=== PATIENT | female | born 1945 | race Hispanic/Latino ===

== ENCOUNTER 2018-04-21 12:52 | Emergency (ER) | payer MEDICARE ==
[~2018-04-21 12:52] MED LIST: ALEN70TA47 PO; ASPI-555 PO; ATOR40TA71 PO; AZIT500T4 PO; CALC1TAB2 PO; DULO60CA63 PO; FAMO20TA8 PO; GLIM2TAB3 PO; HYDR12.54 PO; LOSA50TA25 PO; METF-446 PO; METO25TA6 PO; METO50TA18 PO; MULT-1258 PO; NAPR-1023 PO; OXYB5TAB PO; OXYB5TAB10 PO
[2018-04-21 13:34] LABS: HEMATOCRIT 37.2 % (36-48); LYMPHOCYTES % (AUTO) 22.1 % (21.0-51.0); MEAN CORPUSCULAR HEMOGLOBIN 29.1 pg (27.0-33.0); MEAN CORPUSCULAR HGB CONC 32.8 g/dL (32.0-36.0); MEAN CORPUSCULAR VOLUME 88.6 fL (79-99); MONOCYTES % (AUTO) 7.2 % (3.0-13.0); NEUTROPHILS % (AUTO) 67.7 % (40.0-77.0); PLATELET COUNT (AUTO) 294 K/uL (130-400); RED CELL DISTRIBUTION WIDTH 13.3 % (11.0-15.5); WHITE BLOOD COUNT (AUTO) 8.8 K/uL (4.8-10.8)
[2018-04-21] MEDS ORDERED: SODIUM CHLORIDE 0.9% 500ML 500 ML IV ONE (13:36)
[2018-04-21] MEDS ORDERED: KETOROLAC TROMETHAMINE 30MG/ML ONE (13:36)
[2018-04-21] MEDS ORDERED: ONDANSETRON HCL 4 MG/2 ML VIAL ONE (13:36)
[2018-04-21 13:45] LABS: POTASSIUM 4.1 mmol/L (3.5-5.1)
[2018-04-21 13:54] LABS: ALBUMIN 3.3 g/dL (3.5-5.0); BILIRUBIN,DIRECT 0.1 mg/dL (0.0-0.3); BILIRUBIN,TOTAL 0.2 mg/dL (0.2-1.0); TOTAL PROTEIN, SERUM 7.1 g/dL (6.0-8.3)
[2018-04-21 15:57] LABS: APPEARANCE,URINE Clear (CLEAR); BILIRUBIN,URINE Negative (NEGATIVE); COLOR,URINE Dark Yellow (YELLOW); GLUCOSE, URINE (UA) Negative (NEGATIVE); KETONES,URINE Trace mg/dL (NEGATIVE); LEUKOCYTE ESTERASE ,URINE Moderate (NEGATIVE); NITRATE,URINE Negative (NEGATIVE); OCCULT BLOOD,URINE Negative (NEGATIVE); PROTEIN,URINE Negative (NEGATIVE)
[2018-04-21 16:32] LABS: BACTERIA,URINE Few /HPF (None Seen); RBC,URINE None Seen /HPF (0-1)
== END 2018-04-21 17:29 | disposition home or self-care (01) ==
LOC: EDH 12:52
DX: K52.9 Noninfective gastroenteritis and colitis, unspecified (principal); E11.9 Type 2 diabetes mellitus without complications; E78.5 Hyperlipidemia, unspecified; I10 Essential (primary) hypertension; Z86.73 Personal history of transient ischemic attack (TIA), and cerebral infarction without residual deficits; Z79.4 Long term (current) use of insulin
CPT/HCPCS: 36415; 74176; 80048; 80076; 81001; 82550; 83690; 84484; 84702; 85025; 87804 ×2; 93005; 96374; 96375; 99285; J1885; J2405; J7040

== ENCOUNTER 2021-01-14 16:16 | Emergency (ER) | payer MEDICARE ==
[~2021-01-14] VITALS: Ht 165.1 cm; Wt 98.0 kg
[~2021-01-14 16:16] MED LIST changes: -ALEN70TA47 PO; +ALEN70TA80 PO; -ASPI-555 PO; +ASPI-556 PO; -DULO60CA63 PO; +DULO60CA64 PO; -GLIM2TAB3 PO; +GLIM2TAB30 PO; -LOSA50TA25 PO; +LOSA50TA64 PO; +OXYB-66 PO; -OXYB5TAB PO; -OXYB5TAB10 PO; +OXYB5TAB15 PO
[2021-01-14 16:19] VITALS: BP 137/62
[2021-01-14 16:57] LABS: APPEARANCE,URINE Clear (CLEAR); BILIRUBIN,URINE Negative (NEGATIVE); COLOR,URINE Yellow (YELLOW); GLUCOSE, URINE (UA) >=1000 mg/dL (NEGATIVE); KETONES,URINE 15 mg/dL (NEGATIVE); LEUKOCYTE ESTERASE ,URINE Trace (NEGATIVE); NITRATE,URINE Negative (NEGATIVE); OCCULT BLOOD,URINE Negative (NEGATIVE); PROTEIN,URINE Negative (NEGATIVE); UROBILINOGEN,URINE 0.2 mg/dL (0.2-1.0)
[2021-01-14] MEDS ORDERED: MORPHINE 2 MG SYG IVP ONE (17:00)
[2021-01-14] MEDS ORDERED: ONDANSETRON 4MG INJ IVP ONE (17:00)
[2021-01-14 17:09] LABS: BASOPHILS % (AUTO) 1.1 % (0.0-5.0); EOSINOPHILS % (AUTO) 3.3 % (0.0-8.0); HEMATOCRIT 35.8 % (36-48); LYMPHOCYTES % (AUTO) 26.9 % (21.0-51.0); MEAN CORPUSCULAR HEMOGLOBIN 27.5 pg (27.0-33.0); MEAN CORPUSCULAR HGB CONC 31.8 g/dL (32.0-36.0); MEAN CORPUSCULAR VOLUME 86.3 fL (79-99); MONOCYTES % (AUTO) 9.2 % (3.0-13.0); PLATELET COUNT (AUTO) 288 K/uL (130-400); RED BLOOD CELL COUNT(AUTO) 4.15 MIL/uL (4.00-5.50); RED CELL DISTRIBUTION WIDTH 13.7 % (11.0-15.5); WHITE BLOOD COUNT (AUTO) 8.1 K/uL (4.8-10.8)
[2021-01-14 17:25] LABS: POTASSIUM 3.7 mmol/L (3.5-5.1)
[2021-01-14 17:29] LABS: ALBUMIN 3.3 g/dL (3.5-5.0); BILIRUBIN,TOTAL 0.3 mg/dL (0.2-1.0); TOTAL PROTEIN, SERUM 7.2 g/dL (6.0-8.3)
[2021-01-14 17:42] VITALS: BP 103/79
[2021-01-14 17:49] LABS: BACTERIA,URINE Few /HPF (None Seen); MUCUS,URINE Few LPF (None Seen); SQUAMOUS EPITHELIAL CELL,UR Few /HPF (0-2)
[2021-01-14] MEDS ORDERED: INSULIN HUMULIN R 100 UNIT/ML 3ML IV ONE (18:00)
[2021-01-14] MEDS ORDERED: 0.9%NACL 1000ML 1,000 ML IV ONE (18:00)
[2021-01-14] MEDS ORDERED: LACT10PA5 PO (19:02)
== END 2021-01-14 20:09 | disposition home or self-care (01) ==
LOC: EDH 16:16
DX: K59.00 Constipation, unspecified (principal); E11.65 Type 2 diabetes mellitus with hyperglycemia; E78.00 Pure hypercholesterolemia, unspecified; I10 Essential (primary) hypertension; Z79.1 Long term (current) use of non-steroidal anti-inflammatories (NSAID); Z79.82 Long term (current) use of aspirin; Z79.84 Long term (current) use of oral hypoglycemic drugs; Z79.899 Other long term (current) drug therapy
CPT/HCPCS: 36415; 71045; 74176; 80053; 81001; 82948; 83690; 84484; 85025; 93005; 96361; 96374; 96375; 99285; J1815; J2405; J7030

== ENCOUNTER 2023-04-18 11:27 | Emergency (ER) | payer OTHER, MEDICARE ==
[~2023-04-18] VITALS: Ht 165.1 cm; Wt 74.8 kg
[~2023-04-18 11:27] MED LIST changes: +LACT10PA5 PO; -OXYB5TAB15 PO; +OXYB5TAB20 PO
[2023-04-18 11:31] VITALS: O2SAT 100
[2023-04-18 13:43] LABS: BASOPHILS # (AUTO) 0.08 K/uL (0.00-0.20); BASOPHILS % (AUTO) 0.8 % (0.0-5.0); EOSINOPHILS # (AUTO) 0.11 K/uL (0.00-0.70); EOSINOPHILS % (AUTO) 1.1 % (0.0-8.0); IMMATURE GRANULOCYTE ABSOLUTE 0.06 K/uL (0-1); LYMPHOCYTES # (AUTO) 1.9 K/uL (1.0-4.8); LYMPHOCYTES % (AUTO) 19.5 % (21.0-51.0); MEAN CORPUSCULAR HEMOGLOBIN 27.3 pg (27.0-33.0); MEAN CORPUSCULAR HGB CONC 32.4 g/dL (32.0-36.0); MEAN CORPUSCULAR VOLUME 84.2 fL (79-99); MONOCYTES # (AUTO) 0.7 K/uL (0.1-1.0); MONOCYTES % (AUTO) 7.1 % (3.0-13.0); NEUTROPHILS # (AUTO) 6.8 K/uL (1.8-7.7); NEUTROPHILS % (AUTO) 70.9 % (40.0-77.0); PLATELET COUNT (AUTO) 311 K/uL (130-400); RED BLOOD CELL COUNT(AUTO) 3.92 MIL/uL (4.00-5.50); RED CELL DISTRIBUTION WIDTH 14.4 % (11.0-15.5); WHITE BLOOD COUNT (AUTO) 9.6 K/uL (4.8-10.8)
[2023-04-18 13:52] LABS: CREATININE 0.7 mg/dL (0.5-1.5); POTASSIUM 4.4 mmol/L (3.5-5.1)
[2023-04-18 14:01] LABS: ALBUMIN 3.2 g/dL (3.5-5.0); BILIRUBIN,TOTAL 0.4 mg/dL (0.2-1.0); TOTAL PROTEIN, SERUM 6.9 g/dL (6.0-8.3)
[2023-04-18 14:47] LABS: SARS-CoV-2, RNA, NAAT NEGATIVE SARS CoV-2 (NEGATIVE)
[2023-04-18 14:56] LABS: APPEARANCE,URINE CLEAR (CLEAR); BILIRUBIN,URINE NEGATIVE (NEGATIVE); COLOR,URINE COLORLESS (YELLOW); GLUCOSE, URINE (UA) NEGATIVE (NEGATIVE); KETONES,URINE NEGATIVE (NEGATIVE); LEUKOCYTE ESTERASE ,URINE NEGATIVE Leu/uL (NEGATIVE); NITRATE,URINE NEGATIVE (NEGATIVE); OCCULT BLOOD,URINE NEGATIVE (NEGATIVE); PROTEIN,URINE NEGATIVE (NEGATIVE); UROBILINOGEN,URINE 0.2 mg/dL (0.2-1.0)
[2023-04-18 14:57] LABS: ADD UA MICROSCOPIC YES
[2023-04-18 14:58] LABS: BACTERIA,URINE FEW /HPF (None Seen); SQUAMOUS EPITHELIAL CELL,UR RARE /HPF (0-2)
[2023-04-18 15:34] LABS: INFLUENZA TYPE A Negative For Type A (NEGATIVE); INFLUENZA TYPE B Negative For Type B (NEGATIVE)
[2023-04-18] MEDS ORDERED: ONDANSETRON 4MG INJ IVP ONE (16:00)
[2023-04-18] MEDS ORDERED: LACTATED RINGERS 1000ML 1,000 ML IV ONE (16:00)
[2023-04-18 17:24] VITALS: BP 132/74; PULSE 74; RESP 18
[2023-04-18] MEDS ORDERED: ONDA4TAB10 PO (18:00)
== END 2023-04-18 18:12 | disposition home or self-care (01) ==
LOC: EDH 11:27
DX: R10.84 Generalized abdominal pain (principal); R53.1 Weakness; E86.0 Dehydration; R11.0 Nausea; R19.7 Diarrhea, unspecified; E11.9 Type 2 diabetes mellitus without complications; E78.00 Pure hypercholesterolemia, unspecified; I10 Essential (primary) hypertension; I48.91 Unspecified atrial fibrillation; Z79.82 Long term (current) use of aspirin; Z79.84 Long term (current) use of oral hypoglycemic drugs; Z79.899 Other long term (current) drug therapy; Z86.73 Personal history of transient ischemic attack (TIA), and cerebral infarction without residual deficits; Z90.49 Acquired absence of other specified parts of digestive tract; Z20.822 Contact with and (suspected) exposure to COVID-19
CPT/HCPCS: 99284; 70450; 96374; 71045; 87635; 96361; 82550; 84484; 80053; 83690; 85025; 87804 ×2; 81001; 36415; 73030; 74176; 93005; C9803; J7120; J2405

== ENCOUNTER 2025-05-30 09:00 | Emergency (ER) | payer MEDICARE, MEDICAID ==
[~2025-05-30] VITALS: Ht 165.1 cm; Wt 72.6 kg
[~2025-05-30 09:00] MED LIST changes: -ALEN70TA80 PO; -ASPI-556 PO; -AZIT500T4 PO; -CALC1TAB2 PO; -FAMO20TA8 PO; -GLIM2TAB30 PO; -LACT10PA5 PO; -LOSA50TA64 PO; +METO-408 PO; -METO25TA6 PO; -METO50TA18 PO; -MULT-1258 PO; -NAPR-1023 PO; -OXYB-66 PO; +SERT-439 PO
[2025-05-30 09:46] VITALS: TEMP 98.6
--- NOTE | 2025-05-30 09:59 | NUR ---
REPORT RECEIVED FROM FADY NÚÑEZ
[2025-05-30 10:22] LABS: IMMATURE GRANULOCYTE ABSOLUTE 0.06 K/uL (0-1); NUCLEATED RED BLOOD CELLS 0.0 % (0.0-0.19); PLATELET COUNT (AUTO) 308 K/uL (130-400); RED BLOOD CELL COUNT(AUTO) 4.07 MIL/uL (4.00-5.50); RED CELL DISTRIBUTION WIDTH 14.1 % (11.0-15.5); WHITE BLOOD COUNT (AUTO) 7.4 K/uL (4.8-10.8)
[2025-05-30 10:36] LABS: CREATININE 0.8 mg/dL (0.5-1.0); GLOMERULAR FILTR. RATE CALC 75.0 mL/min (>90); GLUCOSE,RANDOM 192.0 mg/dL (70-105); SODIUM SERUM 140.0 mmol/L (136-145); UREA NITROGEN, BLOOD 15.0 mg/dL (7-18)
[2025-05-30 10:55] LABS: ASPARTATE AMINOTRANSFERASE 14.0 U/L (10-37); TOTAL PROTEIN, SERUM 7.6 g/dL (6.0-8.3)
[2025-05-30] MEDS: 0.9%NACL 1000ML 1,000 ML IV STA (11:01)
[2025-05-30] MEDS: FAMOTIDINE 20MG VIAL IV ONE (11:01)
--- NOTE | 2025-05-30 11:17 | NUR ---
PT ASKED TO INFORM ME ONCE SHE IS ABLE TO OR NEEDS TO URINATE.
--- NOTE | 2025-05-30 11:45 | NUR ---
PT URINE WAS COLLECTED VIA BEDPAN AND SENT TO LAB
[2025-05-30 12:03] LABS: APPEARANCE,URINE CLOUDY (CLEAR); GLUCOSE, URINE (UA) NEGATIVE (NEGATIVE); LEUKOCYTE ESTERASE ,URINE NEGATIVE Leu/uL (NEGATIVE); NITRATE,URINE NEGATIVE (NEGATIVE); OCCULT BLOOD,URINE NEGATIVE (NEGATIVE)
[2025-05-30 12:06] LABS: ADD UA MICROSCOPIC YES
[2025-05-30 12:10] LABS: SQUAMOUS EPITHELIAL CELL,UR RARE /HPF (0-2)
--- NOTE | 2025-05-30 12:11 | NUR ---
NATALIO OFFERED AND ACCEPTED TO PT BY JHONNY BOLAÑOS
[2025-05-30] MEDS ORDERED: CEPH500T PO (12:21)
--- NOTE | 2025-05-30 12:22 | ERN ---
ED Note History of Present Illness Stated Complaint: NAUSEA VOMITING BODY ACHES CHILLS Chief Complaint: Nausea,Vomiting,Diarrhea Time Seen by MD: 10:08 Time Seen by Midlevel: 10:10 Dictation: 79-year-old female with a history of hypertension, diabetes, cholesterol and arthritis coming in with complaints of nausea and vomiting body aches weakness states started this morning. Just states she has had two episodes of nonbloody emesis. No fever no diarrhea. Patient states earlier surgical history of C-sec tion. Also states last night she had pork for dinner. She denies any chest pain, chest discomfort, shortness a breath. Allergies: Coded Allergies: No Known Allergies (Unverified Allergy, 11/17/11) Home Meds Active Scripts Metoprolol Succinate (Metoprolol Succinate) 25 Mg Tab.er.24h, 1 TAB PO DAILY for 30 Days, #30 TAB 0 Refills Prov:SHALINI QUINTERO MD 05/01/25 Reported Medications Oxybutynin Chloride (Oxybutynin Chloride) 5 Mg Tablet, 1 TAB PO BID for urinary discomfort for 30 Days, #60 TAB 0 Refills 04/28/25 Sertraline HCl (Sertraline HCl) 50 Mg Tablet, 1 TAB PO HS for 30 Days, #30 TAB 0 Refills 04/28/25 Hydrochlorothiazide (Hydrochlorothiazide) 12.5 Mg Tablet, 1 TAB PO DAILY for 30 Days, #30 TAB 0 Refills 04/28/25 Duloxetine HCl (Duloxetine HCl) 60 Mg Capsule.dr, 1 CAP PO HS for 30 Days, #30 CAP 0 Refills 04/28/25 Metformin HCl (Metformin HCl) 1,000 Mg Tablet, 1 TAB PO BID for 30 Days, #60 TAB 0 Refills 04/28/25 Atorvastatin Calcium (Atorvastatin Calcium) 40 Mg Tablet, 1 TAB PO HS for 30 Days, #30 TAB 0 Refills 04/28/25 Past Medical History Past Medical History: A-Fib, CVA, Diabetes-Type II, High Cholesterol, Hypertension, [place] Surgical History: Appendectomy, Surgical History Other: LEFT EYE GROWTH / BILATERAL KNEE REPLACEMENT History: Not Applicable Review of System Dictation Constitutional: Generalized weakness Eyes: Negative for injury, pain,redness, and discharge ENT: Negative for injury,pain or swelling Cardiovascular: Negative for chest pain, palpitations, and edema Respiratory: Negative for shortness of breath, cough, and wheezing, Abdomen/GI: Negative for abdominal pain, nausea and vomiting Back: Negative for injury and pain : Negative for injury, bleeding and discharge MS/Extremity: Negative for injury and deformity Skin: Negative for rash, and discoloration Neuro: Negative for headache, weakness, numbness, tingling, and seizure Psych: Negative for suicide ideation, homicidal ideation, and hallucinations Review of Systems: was completed Initial Vital Sign VS Vital Signs Date Time Temp Pulse Resp B/P (MAP) Pulse Ox O2 Delivery O2 Flow Rate FiO2 05/30/25 09:01 97.9 100 18 157/80 95 Room Air 0 05/30/25 09:46 21 Physical Exam Dictation General: awake, alert, NAD Head/Face: Normocephalic, atraumatic Eyes: PERRL, EOMI, vision at baseline ENT: oral cavity clear, TMs clear, no signs of infection Neck: Trachea midline, supple, no nuchal rigidity Cardiovascular: RRR, normal S1/S2, No MRGs, no JVD Respiratory: CTAB, no respiratory distress, No rales or wheezes Abdomen: Soft, non-tender, non-distended, normal bowel sounds, no guarding or rebound. Skin: Warm, dry, normal turgor, no rash MS/Extremity: Pulses equal, no cyanosis, neurovascular intact, FROM Neuro: COAx4, GCS 15, strength 5/5, CN 2-12 intact, normal cerebellar exam, normal gait, Psych: Normal behavior, mood, and affect normal Results (Laboratory/Radiology) Laboratory/Radiology Laboratory Tests Test 05/30/25 10:06 05/30/25 11:42 White Blood Count 7.4 K/uL (4.8-10.8) Red Blood Count 4.07 MIL/uL (4.00-5.50) Hemoglobin 11.2 g/dL (12.0-16.0) L Hematocrit 36.0 % (36-48) Mean Corpuscular Volume 88.5 fL (79-99) Mean Corpuscular Hemoglobin 27.5 pg (27.0-33.0) Mean Corpuscular Hemoglobin Concent 31.1 g/dL (32.0-36.0) L Red Cell Distribution Width 14.1 % (11.0-15.5) Platelet Count 308 K/uL (130-400) Mean Platelet Volume 9.5 fL (7.5-10.5) Immature Granulocyte % (Auto) 0.8 % (0-1) Neutrophils (%) (Auto) 74.4 % (40.0-77.0) Lymphocytes (%) (Auto) 16.1 % (21.0-51.0) L Monocytes (%) (Auto) 6.5 % (3.0-13.0) Eosinophils (%) (Auto) 0.8 % (0.0-8.0) Basophils (%) (Auto) 1.4 % (0.0-5.0) Neutrophils # (Auto) 5.5 K/uL (1.8-7.7) Lymphocytes # (Auto) 1.2 K/uL (1.0-4.8) Monocytes # (Auto) 0.5 K/uL (0.1-1.0) Eosinophils # (Auto) 0.06 K/uL (0.00-0.70) Basophils # (Auto) 0.10 K/uL (0.00-0.20) Absolute Immature Granulocyte (auto 0.06 K/uL (0-1) Nucleated Red Blood Cells 0.0 % (0.0-0.19) Sodium Level 140 mmol/L (136-145) Potassium Level 3.7 mmol/L (3.5-5.1) Chloride Level 101 mmol/L (101-111) Carbon Dioxide Level 30 mmol/L (21-32) Blood Urea Nitrogen 15 mg/dL (7-18) Creatinine 0.8 mg/dL (0.5-1.0) Glomerular Filtration Rate Calc 75 mL/min (>90) Random Glucose 192 mg/dL (70-105) H Total Calcium 9.1 mg/dL (8.5-10.1) Total Bilirubin 0.4 mg/dL (0.2-1.0) Direct Bilirubin 0.1 mg/dL (0.0-0.3) Aspartate Amino Transf (AST/SGOT) 14 U/L (10-37) Alanine Aminotransferase (ALT/SGPT) 13 U/L (12-78) Alkaline Phosphatase 99 U/L (50-136) Troponin I High Sensitivity 16 ng/L (4-50) Total Protein 7.6 g/dL (6.0-8.3) Albumin 3.8 g/dL (3.5-5.0) Lipase 32 U/L (16-77) Urine Color LIGHT-YELLOW (YELLOW) Urine Appearance CLOUDY (CLEAR) H Urine pH 7.0 (5.0-8.0) Urine Specific [place] 1.013 (1.001-1.031) Urine Protein 30 mg/dL (NEGATIVE) H Urine Glucose (UA) NEGATIVE mg/dL (NEGATIVE) Urine Ketones 10 mg/dL (NEGATIVE) H Urine Occult Blood NEGATIVE (NEGATIVE) Urine Nitrate NEGATIVE (NEGATIVE) Urine Bilirubin NEGATIVE mg/dL (NEGATIVE) Urine Urobilinogen 0.2 mg/dL (0.2-1.0) Urine Leukocyte Esterase NEGATIVE Ananda/uL Urine RBC 2-5 /HPF (0-1) H Urine WBC 6-10 /HPF (0-1) H Urine Squamous Epithelial Cells RARE /HPF (0-2) Urine Bacteria MOD /HPF (None Seen) Urine Hyaline Casts 2-5 /LPF (0-1 /LPF) H Labs Reviewed?: Yes EKG Comment: EKGs done at 1156. Sinus rhythm at a rate of 77. Right bundle branch block. ED Course ED Course Orders Procedure Category Date Status Time Cbc With Differential LAB 05/30/25 Complete 09:47 Basic Metabolic Panel LAB 05/30/25 Complete 09:47 Lipase LAB 05/30/25 Complete 10:33 Hepatic Function Panel LAB 05/30/25 Complete 10:33 Urinalysis Profile LAB 05/30/25 Complete 10:33 0.9%Nacl 1000ml (Ns PHA 05/30/25 Complete 1000ml) 10:33 Ondansetron 4mg Inj PHA 05/30/25 Complete (Zofran 4mg Inj) 11:00 Famotidine 20mg Vial PHA 05/30/25 Complete (Pepcid 20mg Vial) 11:00 12 Lead Ekg Tracing- EKG 05/30/25 Logged Technical 11:45 Troponin I High LAB 05/30/25 Complete Sensitivity 11:45 Culture Urine RAVIN 05/30/25 In Process 12:11 Ceftriaxone 1g Vial PHA 05/30/25 Verified (Rocephine 1g Inj) 12:15 Current Medications Medications (Trade) Dose Ordered Sig/Estela Route PRN Reason Start Time Stop Time Status Last Admin Dose Admin Famotidine (Pepcid 20mg Vial) 20 mg ONCE ONCE IV 05/30/25 11:00 05/30/25 11:01 DC 05/30/25 11:01 Ondansetron HCl (zoFRAN 4MG INJ) 4 mg ONCE ONCE IVP 05/30/25 11:00 05/30/25 11:01 DC 05/30/25 11:01 Sodium Chloride 1,000 ml @ 1,000 mls/hr Q1H STAT IV 05/30/25 10:33 05/30/25 11:32 DC 05/30/25 11:01 Vital Signs Date Time Temp Pulse Resp B/P (MAP) Pulse Ox O2 Delivery O2 Flow Rate FiO2 05/30/25 11:06 83 16 171/91 96 Room Air* 0 21 05/30/25 09:46 98.6 87 18 189/98 95 Room Air* 0 21 05/30/25 09:01 97.9 100 18 157/80 95 Room Air 0 Medical Decision Making MDM MDM: The patient is a 79-year-old female with a past medical history is significant for hypertension, diabetes, hyperlipidemia, arthritis who presents with the acute onset nausea and vomiting and chills beginning with this morning. Patient reports two episodes of nonbloody non bilious emesis. She denies fever, abdominal pain, chest pain, shortness a breath, diarrhea, hematemesis or melena. She notes eating pork for dinner last night. On examination the patient has hemodynamically stable and no fit distress. Abdominal examination was soft, nontender and benign without guarding, rebound or distention. No focal abdominal findings of the [facility] to suggest any acute surgical abdomen. Laboratory evaluation has been no leukocytosis, anemia or thrombocytopenia. Basic metabolic panel demonstrates normal electrolytes and preserved renal function. No transaminitis and lipase is normal. Cardiac evaluation cleaned negative troponin EKGs with a ischemic changes noted for a right bundle branch. Urinalysis showed evidence of a urinary tract infection wishes meal felt to be the most likely etiology of her presenting symptoms particularly in the sentences chills nausea and elderly patient. Areas low clinical suspicion for bowel obstruction, cholecystitis, appendicitis, mesenteric ischemia or intra-abdominal pathology given benign exam and reassuring laboratory findings. With the patient was treated in the ER with the IV fluids, Zofran, Pepcid with significant symptomatic improvement. She was able to tolerate oral intake without recurrent emesis. Remained hemodynamically stable and had no progression of symptoms during ulceration. Differential diagnosis: Dehydration, gastroenteritis, electrolyte abnormality, Rationale: Tests considered and ordered secondary to shared decision making include: Previous outside records reviewed: Old ER visits. Risk of complication and/or morbidity or mortality of patient management: None Medications-Per medication reconciliation Need for hospitalization: Patient does not meet criteria for hospitalization. Need for emergency major/minor surgery: No There are no social concerns with this patient. Prescription drug management Prescriptions will include symptomatic care Patient's prior external medical records from other ER visits were reviewed by me as indicated. Prior testing and results from previous visits were reviewed. Prior tests were taken into account with medical decision making and resource utilization, independent historian/historians were used to obtain complete medical history. I independently interpreted the test that were performed, results were reviewed by me and considered findings on radiology if ordered. Medical management and examination interpretation discussions were had by me with other qualified healthcare professionals as indicated for the patient's care. DX & DISP Disposition: Discharge Departure Impression: Primary Impression: Urinary tract infection Additional Impression: Generalized weakness Condition: Stable Scripts Cephalexin (Cephalexin) 500 Mg Tablet 1 TAB PO BID for 10 Days, #20 TAB 0 Refills Prov: JHONNY ANDRADE CNP 05/30/25 Additional Instructions: Avoid eating any solid foods for the 1st couple of days . Take antibiotics as prescribed. Take him eyes or if your having a meal. You can also take or probiotics to help with the the landing of your stomach. Take antacid as needed. Stay hydrated. Return to the hospital if fever and unable to keep any food or fluids down. Follow up with the your primary doctor in 1-2 days. Referrals: HUY OLIVO (PCP) Time of Disposition: 12:21 I have reviewed the case, and I agree with, Diagnosis and Plan JHONNY ANDRADE CNP May 30, 2025 12:22
--- NOTE | 2025-05-30 12:23 | NUR ---
PT TOLERATED THE JELLO THAT WAS PROVIDED.
[2025-05-30 12:36] VITALS: BP 157/61; PULSE 85; RESP 16; O2SAT 98
--- NOTE | 2025-05-30 12:48 | EKG ---
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1945 Requested By: JHONNY ANDRADE Order Number: [id number] Reading MD: Van Escamilla Measurements Intervals [place] Rate: 77 P: -5 [place]: 149 QRS: -7 QRSD: 128 T: 38 QT: 451 QTc: 512 Interpretive Statements Sinus rhythm Supraventricular bigeminy Right bundle branch block Inferior infarct, old Compared to ECG 04/28/2025 08:41:27 Atrial premature complex(es) now present Myocardial infarct finding now present Sinus tachycardia no longer present Electronically Signed On 05-31-2025 08:45:36 MIDDLE OR INTERMEDIATE SCHOOL PRINCIPAL by Van Escamilla Please click the below link to view image of tracing.
--- NOTE | 2025-05-30 13:14 | NUR ---
PT CALLING PROVIDER TO COME AND PICK HER UP.
--- NOTE | 2025-06-01 09:20 | NUR ---
UPON REVIEW OF CULTURE RESULTS BY DR. GALLAGHER, NEW RX OF MACROBID 100MG PO BID X 10 DAYS. ATTEMPTED TO CALL NUMBERS ON FILE, NO ANSWER, UNABLE TO LEAVE VOICEMAIL. WILL HAVE [facility] BLOWER SEND LETTER.
== END 2025-05-30 13:27 | disposition home or self-care (01) ==
LOC: EDH 09:00
DX: N39.0 Urinary tract infection, site not specified (principal); R53.1 Weakness; R11.2 Nausea with vomiting, unspecified; E11.9 Type 2 diabetes mellitus without complications; E78.00 Pure hypercholesterolemia, unspecified; I10 Essential (primary) hypertension; I25.2 Old myocardial infarction; I48.91 Unspecified atrial fibrillation; Z86.73 Personal history of transient ischemic attack (TIA), and cerebral infarction without residual deficits; Z79.84 Long term (current) use of oral hypoglycemic drugs; Z79.899 Other long term (current) drug therapy; Z90.49 Acquired absence of other specified parts of digestive tract; Z96.653 Presence of artificial knee joint, bilateral; Z98.890 Other specified postprocedural states
CPT/HCPCS: 99284; 96374; 96375; 96361; 80076; 84484; 80048; 83690; 85025; 87086 ×2; 87186; 81001; 36415; 93005; J1308; J7030; J0696; J2405

== ENCOUNTER 2025-06-05 10:07 | Inpatient (IN) | payer MEDICARE, MEDICAID ==
[2025-06-05] VITALS (16 sets, daily range): BP systolic 107–160; BP diastolic 46–98; PULSE 92–105; RESP 17–22; TEMP 98.1–99; O2SAT 96–97
[~2025-06-05] VITALS: Ht 165.1 cm; Wt 79.8 kg
[~2025-06-05 10:07] MED LIST changes: +CEPH500T PO
--- NOTE | 2025-06-05 10:10 | NUR ---
PT JUST NOW PLACED IN MY ED BED 12
--- NOTE | 2025-06-05 10:16 | NUR ---
SEPSIS ALERT ACTIVATED
[2025-06-05] MEDS: 0.9%NACL 1000ML 1,000 ML IV ONE ×3 (10:29→14:45)
[2025-06-05 10:36] LABS: NUCLEATED RED BLOOD CELLS 0.0 % (0.0-0.19); PLATELET COUNT (AUTO) 338.0 K/uL (130-400); RED BLOOD CELL COUNT(AUTO) 4.03 MIL/uL (4.00-5.50); RED CELL DISTRIBUTION WIDTH 13.7 % (11.0-15.5); WHITE BLOOD COUNT (AUTO) 9.7 K/uL (4.8-10.8)
[2025-06-05 10:43] LABS: INR 1.04 (0.85-1.15)
[2025-06-05 10:45] LABS: ASPARTATE AMINOTRANSFERASE 15.0 U/L (10-37); CREATININE 1.0 mg/dL (0.5-1.0); GLOMERULAR FILTR. RATE CALC 58.0 mL/min (>90); GLUCOSE,RANDOM 180.0 mg/dL (70-105); SODIUM SERUM 134.0 mmol/L (136-145); TOTAL PROTEIN, SERUM 7.2 g/dL (6.0-8.3); UREA NITROGEN, BLOOD 29.0 mg/dL (7-18)
[2025-06-05 10:56] LABS: SARS-CoV-2, RNA, NAAT NEGATIVE SARS CoV-2 (NEGATIVE)
[2025-06-05 10:59] LABS: INFLUENZA TYPE A Negative For Type A (NEGATIVE); INFLUENZA TYPE B Negative For Type B (NEGATIVE)
--- NOTE | 2025-06-05 11:13 | EKG ---
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
--- NOTE | 2025-06-05 11:15 | ERN ---
General Chief Complaint: Weakness Stated Complaint: WEAKNESS,FEVER Time Seen by MD: 10:17 History of Present Illness Initial Comments 79-year-old female came in for generalized body weakness. As per primary patient was found to be hypotensive with systolic blood pressure in the 60s. Patient was given 500 cc bolus by the medics after with a blood pressure improved. Upon arrival patient was hypotensive once again with the blood pressure in the systolic 80. Patient was diagnosed with a UTI 0 week ago and is unclear if she has been taking her home antibiotics. Patient otherwise has no concerns. Allergies: Coded Allergies: No Known Allergies (Unverified Allergy, 11/17/11) Home Meds Active Scripts Cephalexin (Cephalexin) 500 Mg Tablet, 1 TAB PO BID for 10 Days, #20 TAB 0 Refills Prov:JHONNY ANDRADE CNP 05/30/25 Metoprolol Succinate (Metoprolol Succinate) 25 Mg Tab.er.24h, 1 TAB PO DAILY for 30 Days, #30 TAB 0 Refills Prov:SHALINI QUINTERO MD 05/01/25 Reported Medications Oxybutynin Chloride (Oxybutynin Chloride) 5 Mg Tablet, 1 TAB PO BID for urinary discomfort for 30 Days, #60 TAB 0 Refills 04/28/25 Sertraline HCl (Sertraline HCl) 50 Mg Tablet, 1 TAB PO HS for 30 Days, #30 TAB 0 Refills 04/28/25 Hydrochlorothiazide (Hydrochlorothiazide) 12.5 Mg Tablet, 1 TAB PO DAILY for 30 Days, #30 TAB 0 Refills 04/28/25 Duloxetine HCl (Duloxetine HCl) 60 Mg Capsule.dr, 1 CAP PO HS for 30 Days, #30 CAP 0 Refills 04/28/25 Metformin HCl (Metformin HCl) 1,000 Mg Tablet, 1 TAB PO BID for 30 Days, #60 TAB 0 Refills 04/28/25 Atorvastatin Calcium (Atorvastatin Calcium) 40 Mg Tablet, 1 TAB PO HS for 30 Days, #30 TAB 0 Refills 04/28/25 Past Medical History Past Medical History: A-Fib, CVA, Diabetes-Type II, High Cholesterol, Hypertension, [place], UTI Past Surgical History: Appendectomy, Surgical History Other: LEFT EYE GROWTH / BILATERAL KNEE REPLACEMENT Female( History) History: Not Applicable ROS Dictation Generalized body weakness Physical Exam General Appearance: (+) no apparent distress, (+) apparent distress Orientation: (+) alert, (+) oriented x 3 Respiratory: (+) chest non-tender, (+) lungs clear Heart: (+) regular, (+) no gallop Gastrointestinal: (+) soft, (+) non-tender, (+) no organomegaly, (+) bowel sound present Extremities: (+) normal range of motion Results Laboratory and Microbiology Lab and Micro Result Laboratory Tests Test 06/05/25 10:17 06/05/25 10:22 White Blood Count 9.7 K/uL (4.8-10.8) Red Blood Count 4.03 MIL/uL (4.00-5.50) Hemoglobin 10.9 g/dL (12.0-16.0) L Hematocrit 34.6 % (36-48) L Mean Corpuscular Volume 85.9 fL (79-99) Mean Corpuscular Hemoglobin 27.0 pg (27.0-33.0) Mean Corpuscular Hemoglobin Concent 31.5 g/dL (32.0-36.0) L Red Cell Distribution Width 13.7 % (11.0-15.5) Platelet Count 338 K/uL (130-400) Mean Platelet Volume 10.3 fL (7.5-10.5) Nucleated Red Blood Cells 0.0 % (0.0-0.19) Prothrombin Time 11.0 SEC (9.6-11.6) Prothromb Time International Ratio 1.04 (0.85-1.15) Activated Partial Thromboplast Time 34.2 SEC (26.3-35.5) Sodium Level 134 mmol/L (136-145) L Potassium Level 2.9 mmol/L (3.5-5.1) *L Chloride Level 95 mmol/L (101-111) L Carbon Dioxide Level 24 mmol/L (21-32) Blood Urea Nitrogen 29 mg/dL (7-18) H Creatinine 1.0 mg/dL (0.5-1.0) Glomerular Filtration Rate Calc 58 mL/min (>90) Random Glucose 180 mg/dL (70-105) H Lactic Acid Level 1.9 mmol/L (0.8-2.5) Total Calcium 8.8 mg/dL (8.5-10.1) Total Bilirubin 0.7 mg/dL (0.2-1.0) Direct Bilirubin 0.2 mg/dL (0.0-0.3) Aspartate Amino Transf (AST/SGOT) 15 U/L (10-37) Alanine Aminotransferase (ALT/SGPT) 8 U/L (12-78) L Alkaline Phosphatase 74 U/L (50-136) Troponin I High Sensitivity 30 ng/L (4-50) Total Protein 7.2 g/dL (6.0-8.3) Albumin 3.1 g/dL (3.5-5.0) L Procalcitonin 0.26 ng/mL (0.05-0.5) Influenza Type A Antigen Negative For Type A Influenza Type B Antigen Negative For Type B SARS-CoV-2, RNA, NAAT NEGATIVE SARS CoV-2 MDM MDM: Differential diagnosis: Rationale: Tests considered and ordered secondary to shared decision making include: labs, ECG and radiology Previous outside records reviewed: Old ER visits. Risk of complication and/or morbidity or mortality of patient management: None Medications-Per medication reconciliation Need for hospitalization: Patient does meet criteria for hospitalization. Need for emergency major/minor surgery: No There are no social concerns with this patient. Prescription drug management Prescriptions will include symptomatic care Patient's prior external medical records from other ER visits were reviewed by me as indicated. Prior testing and results from previous visits were reviewed. Prior tests were taken into account with medical decision making and resource utilization, independent historian/historians were used to obtain complete medical history. I independently interpreted the test that were performed, results were reviewed by me and considered findings on radiology if ordered. Medical management and examination interpretation discussions were had by me with other qualified healthcare professionals as indicated for the patient's care. ED Course Orders Procedure Category Date Status Time Cbc Without LAB 06/05/25 Complete Differential 10:15 Basic Metabolic Panel LAB 06/05/25 Complete 10:15 Lactic Acid LAB 06/05/25 Complete 10:15 Blood Cult RAVIN 06/05/25 In Process 10:15 Urinalysis Profile LAB 06/05/25 Logged 10:15 12 Lead Ekg Tracing- EKG 06/05/25 Logged Technical 10:17 Influenza Type A & B, LAB 06/05/25 Complete Rapid 10:17 Covid Rna Naat LAB 06/05/25 Complete 10:17 Procalcitonin LAB 06/05/25 Complete 10:17 Pt And Ptt LAB 06/05/25 Complete 10:17 Troponin I High LAB 06/05/25 Complete Sensitivity 10:17 Urinalysis LAB 06/05/25 Logged W/Microscopic 10:17 Chest 1vw RAD 06/05/25 Taken 10:17 0.9%Nacl 1000ml (Ns PHA 06/05/25 Complete 1000ml) 10:30 Hepatic Function Panel LAB 06/05/25 Complete 10:17 Vancomycin 1g/250ml PHA 06/05/25 Complete Kit (Vancomycin 1g/2 11:00 Cefepime Hcl 1 Gm PHA 06/05/25 Complete Vial (Maxipime 1 Gm Vi 11:00 Potassium Chloride PHA 06/05/25 Complete 20meq Er (K-Dur/Klor- 11:00 Current Medications Medications (Trade) Dose Ordered Sig/Estela Route PRN Reason Start Time Stop Time Status Last Admin Dose Admin Cefepime HCl (MAXipime 1 GM vial) 1 gm ONCE ONCE IVPB 06/05/25 11:00 06/05/25 11:01 DC 06/05/25 10:54 Potassium Chloride (K-Dur/Klor-Con 20meq) 40 meq ONCE ONCE PO 06/05/25 11:00 06/05/25 11:01 DC Sodium Chloride 1,000 ml @ 0 mls/hr ONCE ONCE IV 06/05/25 10:30 06/05/25 10:31 DC 06/05/25 10:29 Vancomycin HCl (Vancomycin 1g/ 250ml Kit) 1 gm ONCE ONCE IV 06/05/25 11:00 06/05/25 11:01 DC Vital Signs Date Time Temp Pulse Resp B/P (MAP) Pulse Ox O2 Delivery O2 Flow Rate FiO2 06/05/25 10:10 97.0 112 22 88/44 0 Room Air 5.0 DX & DISP Disposition: Inpatient Departure Impression: Primary Impression: Sepsis Condition: Stable Referrals: HUY OLIVO (PCP) RACHEL VAZQUEZ MD Jun 05, 2025 11:15
--- NOTE | 2025-06-05 11:23 | HMCIMG ---
EXAM: CR Chest, 1 View. CLINICAL HISTORY: Shortness of breath COMPARISON: None provided. FINDINGS: LUNGS: There is no mass, infiltrate, or acute pulmonary abnormality. PLEURAL SPACES: No pleural effusion or pneumothorax. MEDIASTINUM: The cardiomediastinal silhouette is within normal limits. BONES: No acute osseous abnormality. IMPRESSION: No acute cardiopulmonary pathology is evident. /[place]
--- NOTE | 2025-06-05 11:41 | NUR ---
DR HASSAN AT BEDSIDE. PT JUST MADE AN ICU PATIENT
--- NOTE | 2025-06-05 11:46 | HP ---
[facility] HISTORY AND PHYSICAL Date of Service: Jun 05, 2025 Time of Service: 11:46 HISTORY OF PRESENT ILLNESS: 79-year-old female with past medical history of hypertension, hyperlipidemia, diabetes mellitus type 2, GERD, osteoporosis history of urinary incontinence who presented to the hospital secondary to generalized weakness, malaise. Patient states for the past few days she has noted that she has been feeling very weak at home and has not been able to ambulate much. She denies any fever, chills, chest pain, shortness of breath, cough, abdominal pain, nausea, vomiting. Denied any changes in her urination. Denied any dysuria, hematuria. She feels very weak and is not able to stand up at home. She is able to move her upper and lower extremity without issues. Denied any falls, syncopal episode. Denied any numbness to the, numbness to the upper extremity. She complains of frontal headache which is mild. Patient was Recently seen in [facility] on May 30 and had a UA done which showed ESBL. She was actually discharged on cephalexin. She has not been taking her antibiotics consistently. EMS was called at home today where she was noted to have blood pressure in the 60s. She was thereafter brought to hospital for further evaluation Labs in the ER showed white count of 9.7, hemoglobin was 10.9, platelet count was 338 K, sodium was 134, potassium was 2.9, chloride was 95, bicarb was , creatinine was 1.0, blood glucose was 180 , , LFTs were unremarkable, troponin was negative x1 X-ray showed no acute infiltrates. On presentation to the ED patient's blood pressure was 88/44, temperature was 97.0, heart rate was 1 one two, patient was saturating 98% on room air. When seen at bedside patient's blood pressure was noted to be systolic in the 50s. She was alert oriented x4. She was given1 L NS in the ER and was started on vancomycin and cefepime. REVIEW OF SYSTEMS CONSTITUTIONAL: Denies fevers, chills, or night sweats. No unintentional weight loss reported. Positive for generalized malaise, weakness NEUROLOGICAL: Denies headache, amaurosis fugax, motor weakness, sensory deficit, vertigo/spinning sensation, gait abnormalities, or tremors. ENT: No hearing loss, otalgia, otorrhea, rhinitis, rhinorrhea, hoarseness, or sore throat. CARDIOVASCULAR: Denies any exertional angina, dyspnea on exertion, orthopnea, paroxysmal nocturnal dyspnea, palpitations, life-threatening arrhythmias, claudication. PULMONARY: Denies any shortness of breath, cough, phlegm/sputum, hemoptysis, pleuritic chest pain. GASTROINTESTINAL: Denies any type of dysphagia to either liquids or solids. Denies nausea, vomiting, pyrosis, early satiety, abdominal pain, diarrhea, constipation, or changes in stool consistency or caliber. Denies coffee-ground emesis, hematemesis, hematochezia, or melanotic stools. GENITOURINARY: Denies frequency, urgency, nocturia, hematuria or incontinence (Storage/Irritative symptoms.) Low urinary stream, straining to void, urinary intermittency or hesitancy, splitting of the voiding stream, terminal dribbling. ENDOCRINOLOGIC: Denies polyuria, polydipsia, polyphagia or heat/cold intolerances. HEMATOLOGIC: Denies thrombophilia/previous clots, or coagulopathy/bleeding disorders. ONCOLOGIC: Denies personal history of malignancy. DERMATOLOGIC: Denies rashes or pruritus. PSYCHIATRIC: Denies any suicidal or homicidal ideation. Denies hallucinations. PAST MEDICAL HISTORY: Hypertension, hyperlipidemia, diabetes mellitus type 2, GERD, osteoporosis PAST SURGICAL HISTORY: Appendectomy, , history of knee surgery PAST SOCIAL HISTORY: Denied any smoking, alcohol, drug use. Patient lives alone at home. FAMILY HISTORY: Denied any pertinent family history Coded Allergies: No Known Allergies (Unverified Allergy, 11/17/11) PHYSICAL EXAM GENERAL APPEARANCE: The patient is awake, alert, and oriented, in no acute cardiopulmonary distress. NEUROLOGICAL: Cranial nerves II-XII grossly intact. Motor is 5/5 in bilateral upper and lower extremities proximal to distal. No sensory deficits. HEENT: Face is symmetric. Pupils are equal and reactive. Extraocular movements are intact. NECK: Supple. No JVD. No thyromegaly. No submental, submandibular, pre-/postauricular, occipital or supraclavicular lymphadenopathy. CHEST: Normal chest expansion. No Telemetry. LUNGS: Absence of any rales, rhonchi or any wheezing. CARDIOVASCULAR: Regular. S1 and S2 normal. No appreciable rubs, murmurs or gallops. ABDOMEN: Soft, nontender, and nondistended. There is no rebound, voluntary guarding, or rigidity. : Deferred. No Tubbs. EXTREMITIES: Non-edematous and not cyanotic. No clubbing. Good capillary refill. SKIN: No skin breakdown. Vital Sign (Last 24 Hours) 06/05/25 10:10 Temp 97.0 Pulse 112 Resp 22 B/P (MAP) 88/44 Pulse Ox 0 O2 Delivery Room Air O2 Flow Rate 5.0 LABS: Laboratory: Test 06/05/25 10:22 06/05/25 10:17 Range/Units Influenza Type A Antigen Negative For Type A NEGATIVE Influenza Type B Antigen Negative For Type B NEGATIVE SARS-CoV-2, RNA, NAAT NEGATIVE SARS CoV-2 NEGATIVE White Blood Count 9.7 4.8-10.8 K/uL Red Blood Count 4.03 4.00-5.50 MIL/uL Hemoglobin 10.9 L 12.0-16.0 g/dL Hematocrit 34.6 L 36-48 % Mean Corpuscular Volume 85.9 79-99 fL Mean Corpuscular Hemoglobin 27.0 27.0-33.0 pg Mean Corpuscular Hemoglobin Concent 31.5 L 32.0-36.0 g/dL Red Cell Distribution Width 13.7 11.0-15.5 % Platelet Count 338 130-400 K/uL Mean Platelet Volume 10.3 7.5-10.5 fL Nucleated Red Blood Cells 0.0 0.0-0.19 % Prothrombin Time 11.0 9.6-11.6 SEC Prothromb Time International Ratio 1.04 0.85-1.15 Activated Partial Thromboplast Time 34.2 26.3-35.5 SEC Sodium Level 134 L 136-145 mmol/L Potassium Level 2.9 *L 3.5-5.1 mmol/L Chloride Level 95 L 101-111 mmol/L Carbon Dioxide Level 24 21-32 mmol/L Blood Urea Nitrogen 29 H 7-18 mg/dL Creatinine 1.0 0.5-1.0 mg/dL Glomerular Filtration Rate Calc 58 >90 mL/min Random Glucose 180 H 70-105 mg/dL Lactic Acid Level 1.9 0.8-2.5 mmol/L Total Calcium 8.8 8.5-10.1 mg/dL Total Bilirubin 0.7 0.2-1.0 mg/dL Direct Bilirubin 0.2 0.0-0.3 mg/dL Aspartate Amino Transf (AST/SGOT) 15 10-37 U/L Alanine Aminotransferase (ALT/SGPT) 8 L 12-78 U/L Alkaline Phosphatase 74 50-136 U/L Troponin I High Sensitivity 30 4-50 ng/L Total Protein 7.2 6.0-8.3 g/dL Albumin 3.1 L 3.5-5.0 g/dL Procalcitonin 0.26 0.05-0.5 ng/mL Current Medications Medications (Trade) Dose Ordered Sig/Estela Route PRN Reason Start Time Stop Time Status Last Admin Dose Admin Acetaminophen (TYLenol 500MG TAB) 500 mg Q6H PRN PO MILD PAIN (1-3) 06/05/25 12:00 07/05/25 11:59 Famotidine (Pepcid 20mg Vial) 20 mg BID IV 06/05/25 21:00 07/05/25 20:59 UNV Norepinephrine 250 ml @ 27.225 mls/ hr PROTOCOL IV 06/05/25 12:00 07/05/25 11:59 Pharmacy Profile Note (Pharmacy Communication) 1 each ONCE MISC 06/05/25 12:00 06/12/25 11:59 UNV Sodium Chloride 1,000 ml @ 100 mls/hr Q10H IV 06/05/25 12:00 07/05/25 11:59 DIAGNOSTICS / RADIOLOGY: Chest x-ray Was negative for any infiltrates ASSESSMENT: Suspected Septic shock POA Complicated UTI with urine culture growing ESBL E coli from cultures in 05/30 Dehydration Debility Hypertension Hyperlipidemia Diabetes mellitus type 2 GERD PLAN: - patient to be admitted to ICU -in reference to septic shock with hypotension. The patient will be started on vancomycin and meropenem. Obtain a UA and follow up on blood cultures and urine cultures. Start patient on Levophed to keep map greater than 65 mmHg -obtain critical Care consultation -obtain echocardiogram -start patient on NS for gentle hydration -obtain home medications which will be reconciled once available -check procaine, TSH, hemoglobin A1c -we will consider CT head once patient's blood pressure is more stable -further orders per hospitalization course. Advanced Care Planning Which of the following were discussed: Hospice care: Yes __ No _x_ Therapeutic options: Yes __ No __ Advance directives: Yes __ No __ Other discussions: Discussed with who?: patient (Patient, family or surrogates) Voluntary nature of this service was explained to the patient? Yes _x_ No __ Amount of time spent: 35 minutes Total critical care time spend > 35 minutes JONEL Kinney MD, MD Jun 05, 2025 11:46
[2025-06-05] MEDS ORDERED: VANCOMYCIN PROTOCOL PER PHARMACY IV SCH (12:00)
[2025-06-05] MEDS ORDERED: PHARMACY COMMUNICATION MISC SCH (12:00)
[2025-06-05 12:14] LABS: ABG BASE EXCESS -3.4 mmol/L (-2.0-3.0); ABG HCO3 21.1 mmol/L (21.0-28.0); ABG OXYGEN SATURATION 94.5 % (94.0-98.0); ABG PCO2 36 mmHg (32-45); ABG PH 7.384 (7.350-7.450); CARBON MONOXIDE 1.3 % (0.5-1.5); DEVICE COMMENT RR JESSE RN; PO2, ARTERIAL BG 77.0 mmHg (83.0-108.0); TEMPERATURE, CELSIUS BG 37.0 CELSIUS (35.5-37.0); VENT MODE, BG ROOM AIR (ROOM AIR)
[2025-06-05] MEDS: NOREPINEPHRIN 4MG/NS 250ML 250 ML IV SCH (12:48)
[2025-06-05] MEDS: MEROPENEM 1GM 1 GM VIAL IVPB SCH (12:49)
[2025-06-05] MEDS: 0.9%NACL 1000ML 1,000 ML IV SCH (12:50)
--- NOTE | 2025-06-05 12:58 | NUR ---
LEVOPHEN DRIP INCREASED FROM 0.1MCG/KG/MIN AND INCREASED TO 0.5MCG/KG/MIN JUST NOW.
[2025-06-05] MEDS: PoTASSium chloRIDE 20MEQ ER 20 MEQ ERTAB PO ONE (13:07)
--- NOTE | 2025-06-05 13:24 | NUR ---
PT HR NOW IN THE 115-125 W/SR VS ST W/ MULTIPLE PVCS. LEVO WAS JUST STOPPED AND NEOSYNEPHRINE JUST STARTED.
--- NOTE | 2025-06-05 13:33 | NUR ---
BRICE CABRERA AND DR HASSAN CURRENTLY AT BEDSIDE
--- NOTE | 2025-06-05 13:56 | NUR ---
CHELY-SYNEPHRINE DOSE INCREASED FROM 0.5MCG/KG/MIN TO 0.75 MCG/KG/MIN
--- NOTE | 2025-06-05 14:15 | NUR ---
FAILED ERWIN INSERTION. PT HAS AN EXTREMELY SMALL VAGINAL ORIFICE AND THE URETHRA APPEARS TO BE INSIDE THE VAGINAL CANAL
--- NOTE | 2025-06-05 14:16 | NUR ---
PT CHANGED D/T SOILED DIAPER W/URINE
--- NOTE | 2025-06-05 14:26 | NUR ---
TI[employer] DESIGN ENGINEER CLAY CURRENTLY AT BEDSIDE W/PT.
--- NOTE | 2025-06-05 14:32 | NUR ---
ELSIT NOW INFORMED OF BED ASSIGNMENT OF PT TO 219
--- NOTE | 2025-06-05 14:42 | NUR ---
NURSE ANDREW RN TO RETURN CALL FOR REPORT ON PT
--- NOTE | 2025-06-05 14:55 | NUR ---
DR HASSAN INFORMED ABOUT FAILED ERWIN ATTEMPT
--- NOTE | 2025-06-05 15:03 | NUR ---
DCP: HOME - ADDIE ROJAS [id number] ALEJO recd order regarding home Situation and family contact. Sw spoke to ryan at [facility] who is provider agency for pt. Per Ryan, p lives at home with her 2 sons. Addie [id number] is disabled physically, but of sound mind. Son has his own provider and pt has hers. Pt has been seen by provider agency last week and was scheduled for a visit this week. Agency has no concerns regarding home situation. Informed Ryan of pt admission to ICU for sepsis. Ryan mentioned she was aware of last er visit for UTI. Provider does transport to MD apps. Per Ryan, refuses to leave her home, and keep MD appts. Alejo called several times, no answer. Alejo sent text to son. Pt states nothing has changed in her home. Still lives with her 2 sons. Admits she requires more help with ADLS now, provider helps as needed and with home management and meals.Has walker, shower chair and cane. No HH. Provider Carmen Hardy. [place]
--- NOTE | 2025-06-05 15:15 | CONS ---
[facility] CONSULTATION NOTE Date Patient Seen: Jun 05, 2025 Time of Visit: 15:15 Supervising Physician: Dr. Neo Clayton Reason for Consultation: Septic shock , CC management Primary Care Physician: [ ] Outpatient Specialists: [ ] Inpatient Consults: [ ] PROBLEM LIST: Septic shock secondary to suspected cystitis Recent emergency room visit positive for ESBL cystitis Diabetes mellitus type 2 Chronic urinary incontinence Hypertension Hyperlipidemia HPI: Patient is a 79-year-old female with a past medical history significant for urinary incontinence, diabetes mellitus, hypertension who presented to the emergency department with generalized body weakness progressive over the last several days. She denies any other primary symptoms. Patient states that she was here last week for similar symptoms, UA was performed which showed ESBL and she was sent home with a prescription for cephalexin. Patient reports worsening symptoms since her discharge. On presentation to the emergency department patient's blood pressure was 88/44, she was given a bolus of 1 L normal saline which only transiently raised the patient's blood pressure is within normal limits. At this time she has been initiated on Levophed and patient is being brought to the ICU for critical care management. On my evaluation patient is weak and lethargic, she is currently being transitioned from Levophed to Donald- Synephrine secondary to PVCs and arrhythmias seen after the initiation of Levophed. Patient is currently on vancomycin and meropenem, we will send off for your repeat urine culture. She has a white count of 9.7 today with a she is slightly hypoxic with normal pH, creatinine at this time is 1.0. Chest x-ray sh ows no acute findings, currently pending echocardiogram report. Sodium 134, potassium 2.9 and being replaced orally. Serum glucose is 180 on admission, the remainder of the patient's blood work is unremarkable. Plan Admit to ICU Continue pressor support for adequate hemodynamics Continue antibiotics Pending urinalysis Follow urine culture Follow morning labs Continue fluid hydration Potassium replacement as needed GI and DVT prophylaxis PAST MEDICAL HX: see above PAST SURGICAL HX: noncontributory SOCIAL HISTORY: No tobacco, ETOH, or illicit drug use Coded Allergies: No Known Allergies (Unverified Allergy, 11/17/11) REVIEW OF SYSTEMS: 12 point ROS reviewed with patient. Pertinent positives mentioned above. Otherwise negative. PHYSICAL EXAM: GENERAL: alert, weak, awake oriented x 3 HEENT: EOMI, Sclera non icteric, moist mucosa NECK: Supple, no JVD, trachea midline LUNGS: Clear breath sounds bilaterally. No wheezes HEART: Regular rate and rhythm. Normal S1 and S2, without murmurs ABD: Abdomen soft, nontender. Bowel sounds present EXT: No clubbing cyanosis or edema NEURO: Alert and oriented to person, follows commands Vital Signs (last 8hr) Date Time Temp Pulse Resp B/P (MAP) Pulse Ox O2 Delivery O2 Flow Rate FiO2 06/05/25 13:24 79/36 06/05/25 12:48 45/36 06/05/25 10:10 97.0 112 22 88/44 0 Room Air 5.0 LABS: Hematology Labs: Test 06/05/25 10:17 Range/Units White Blood Count 9.7 4.8-10.8 K/uL Red Blood Count 4.03 4.00-5.50 MIL/uL Hemoglobin 10.9 L 12.0-16.0 g/dL Hematocrit 34.6 L 36-48 % Mean Corpuscular Volume 85.9 79-99 fL Mean Corpuscular Hemoglobin 27.0 27.0-33.0 pg Mean Corpuscular Hemoglobin Concent 31.5 L 32.0-36.0 g/dL Red Cell Distribution Width 13.7 11.0-15.5 % Platelet Count 338 130-400 K/uL Mean Platelet Volume 10.3 7.5-10.5 fL Nucleated Red Blood Cells 0.0 0.0-0.19 % Chemistry Labs: Test 06/05/25 11:51 06/05/25 10:17 Range/Units Hemoglobin A1c 7.1 H 4.0-6.0 % Estimated Average Glucose (eAG) 157 H 70-126 mg/dL Lactic Acid Level 1.4 0.8-2.5 mmol/L Magnesium Level 1.50 L 1.80-2.40 mg/dL C-Reactive Protein, Quantitative 97.20 H 0.5-3.0 mg/L Thyroid Stimulating Hormone (TSH) 1.57 0.36-3.74 uIU/mL Sodium Level 134 L 136-145 mmol/L Potassium Level 2.9 *L 3.5-5.1 mmol/L Chloride Level 95 L 101-111 mmol/L Carbon Dioxide Level 24 21-32 mmol/L Blood Urea Nitrogen 29 H 7-18 mg/dL Creatinine 1.0 0.5-1.0 mg/dL Glomerular Filtration Rate Calc 58 >90 mL/min Random Glucose 180 H 70-105 mg/dL Total Calcium 8.8 8.5-10.1 mg/dL Total Bilirubin 0.7 0.2-1.0 mg/dL Direct Bilirubin 0.2 0.0-0.3 mg/dL Aspartate Amino Transf (AST/SGOT) 15 10-37 U/L Alanine Aminotransferase (ALT/SGPT) 8 L 12-78 U/L Alkaline Phosphatase 74 50-136 U/L Troponin I High Sensitivity 30 4-50 ng/L Total Protein 7.2 6.0-8.3 g/dL Albumin 3.1 L 3.5-5.0 g/dL Procalcitonin 0.26 0.05-0.5 ng/mL Coagulation Labs: Test 06/05/25 10:17 Range/Units Prothrombin Time 11.0 9.6-11.6 SEC Prothromb Time International Ratio 1.04 0.85-1.15 Activated Partial Thromboplast Time 34.2 26.3-35.5 SEC DIAGNOSTICS / RADIOLOGY RESULTS: [ ] PLAN NEURO: Minimize central acting medications as possible. Fall Precautions. Well lighted room through the day and minimize interruptions through the night to prevent acute delirium. PULMONARY: Supplemental 02 as needed Titrate Fio2 to keep Spo2 > or = 90% DuoNebs and CPT as needed IS hourly while awake for pulmonary hygiene Out of bed to chair as tolerated VAP Bundle Vent/BIPAP Settings: [ ] Driving pressure: [ ] P Plat: [ ] Static C: [ ] Static R: [ ] P/F Ratio: [ ] CARDIOVASCULAR: Follow hemodynamics. Titrate vasopressor to keep MAP >65 or systolic blood pressure >95mmHg DIPS: [ ] LINES: [ ] GI & NUTRITION: Continue nutritional support Aspirations precautions Prokinetic agents and laxatives as needed KIDNEYS & ELECTROLYTES: Strict monitoring of intake and output Daily weights Avoid nephrotoxic agents Monitor electrolytes and replace as needed Goal urine output of 30mL/hr or 0.5mL/kg/hr Urine output: [ ] Fluid Balance: [ ] ENDOCRINE: Maintain blood glucose between 100-180 at all times. Insulin sliding scale for blood glucose management INFECTIOUS DISEASE: Trend temperature. Barrera-culture if febrile. Micro: [ ] Antibiotics: [ ] HEMATOLOGY & COAGULATION: Monitor H&H. Keep Hgb > 7 Transfuse 1 unit of PRBC for Hgb < 7 Transfuse 1 pack of platelets of platelets < 20, 000 Watch for any signs and symptoms of bleeding SKIN: Pressure ulcer prevention per facility protocol Rehab: PT/OT Prophylaxis: GI: [ ] DVT: [ ] Code Status: Full Resuscitation Disposition: [ ] Other: Total patient care time exceeds 35 minutes excluding all procedures. Case was discussed and seen with my supervising physician. The above plan was formulated and agreed upon. RED MORRIS PAC Jun 05, 2025 15:15
[2025-06-05] MEDS: VASOpressin 20 UNITS/ML 1ML Vi 20 UNITS in 0.9%NACL 100ML 100 ML IV SCH (15:21)
--- NOTE | 2025-06-05 15:51 | HMCIMG ---
EXAM: US for Deep Venous Thrombosis, bilateral Lower Extremity. CLINICAL HISTORY: Leg Pain and Swelling TECHNIQUE: Real-time ultrasound scan of the veins of the bilateral lower extremity with color Doppler flow, spectral waveform analysis and compression. COMPARISON: Study dated 04/27. FINDINGS: DEEP VEINS: The common femoral, superficial femoral, and popliteal veins are echolucent and compressible. There is normal color Doppler flow throughout. The visualized calf veins appear patent. SOFT TISSUES: No popliteal fossa cyst or other abnormalities. IMPRESSION: 1. No evidence of deep venous thrombosis in the bilateral lower extremities. /[place]
--- NOTE | 2025-06-05 16:05 | HMCSR ---
APPROVED REPORT EXAM: Two-dimensional and M-mode echocardiogram with Doppler and color Doppler. INDICATION ICD: Hypotenstion 2D Dimensions RVDd 3.3 cm LVEF(%) 63.5 (>50%) LVED Vol(simp.) 91.0 mL IVSd 0.8 (0.7-1.1cm) FS(%) 35 % LVES Vol(simp.) 44.0 mL LVDd 5.0 (3.8-5.6cm) LA (2D) 4.0 (1.6-4.0cm) LVEF(%, simp.) 52 % PWd 0.9 (0.7-1.1cm) Ao Root(2D) 2.5 (2.0-3.7cm) LA ESV INDEX (BP) 30.21 mL/m2 LVDs 3.3 (2.5-4.0cm) LVOT diam 2.1 (1.8-2.4cm) Deformation Strain Apical 4 -16.5 % Apical 2 -16.7 % Apical 3 -14.9 % Global Strain -16.1 % Aortic Valve AoV Vmax 1.6 m/s Ao Peak GR 10.1 mmHg LVOT Vmax 0.9 m/s AoV VTI 0.3 m Ao Mean GR 4.6 mmHg LVOT VTI 0.17 m BENJAMIN (VMAX) 1.96 cm2 BENJAMIN (VTI) 2.2 cm2 Mitral Valve MV E Vmax 92.3 cm/s DECEL Time 175 ms MV A Vmax 122.8 cm/s P 1/2 T 54 ms E/A ratio 0.8 MVA (PHT) 4.1 cm2 TDI E/E' Medial 14.3 E/E' Lateral 14.3 Medial E' Peak V 6.47 cm/s Lateral E' Peak V 6.46 cm/s Tricuspid Valve TR Vmax 2.0 m/s RAP (EST) 8 mmHg RVSP 24.0 mmHg TR Peak GR 16.0 mmHg Left Ventricle Left ventricular cavity size is normal. GLS -16.0% Sigmoid septum is present. The LVEF is 50-55%. The LV diastolic function was unable to be assessed due to atrial arrhythmia. Right Ventricle The right ventricle is normal size. The right ventricular systolic function is normal. Atria The left atrium size is normal. Cannot exclude PFO by color Doppler. The right atrium size is normal. Aortic Valve The aortic valve is mildly thickened, trileaflet and opens well. No aortic regurgitation is present. There is no aortic valvular stenosis. Mitral Valve The mitral valve is normal in structure and function. There is moderate mitral valve regurgitation noted. There is no mitral valve stenosis. Tricuspid Valve The tricuspid valve is normal in structure. There is trace of tricuspid valve regurgitation noted. Pulmonic Valve Pulmonic valve is not well visualized. There is no pulmonic valvular regurgitation. Great Vessels The aortic root is normal in size. The IVC is normal in size and collapses >50% with inspiration. Pericardium There is no pericardial effusion. Other Information Quality : Limited/Follow-up Conclusion Technically difficult study. Left ventricular cavity size is normal. Estimated LVEF is 50-55%. The LV diastolic function was unable to be assessed due to atrial arrhythmia. The right ventricular systolic function is normal. Both atria appear normal in size. There is moderate mitral valve regurgitation noted. There is no pericardial effusion.
--- NOTE | 2025-06-05 16:29 | NUR ---
VASOPRESSIN .03 MCG/MIN CHELY-SYNEPHRIN 1.25MCG/KG/MIN
[2025-06-05] MEDS: VANCOMYCIN KIT 1 GM/250 ML IV.KIT IV ONE ×2 (17:56)
--- NOTE | 2025-06-05 18:13 | NUR ---
Patient verbalized wishes to be DNR. I explained in detail that we would not do compressions or give medications to her in the event of cardiac arrest. Patient verbalized understanding. I continued to ask if she would want to be intubated in which the patient stated no she would not. Order for DNR will be input.
[2025-06-05] MEDS: MAGNESIUM 2GM PREMIX 50ML 50 ML IV PRN (18:47)
--- NOTE | 2025-06-05 19:44 | NUR ---
CORRECTION ON VASOPRESSIN IT IS UNITS NOT MCG. I MADE AN ERROR ON MY DOCUMENTATION
[2025-06-05] MEDS ORDERED: SERT-440 PO (19:49)
[2025-06-05] MEDS ORDERED: PANT40GR PO (19:49)
[2025-06-05] MEDS ORDERED: NITR100C PO (19:49)
[2025-06-05] MEDS: FAMOTIDINE 20MG VIAL IV SCH (20:00)
[2025-06-05] MEDS: PoTASSium chloRIDE 20MEQ ER 20 MEQ ERTAB PO PRN (20:43)
[2025-06-05 22:55] LABS: APPEARANCE,URINE CLEAR (CLEAR); GLUCOSE, URINE (UA) 50 mg/dL (NEGATIVE); LEUKOCYTE ESTERASE ,URINE NEGATIVE Leu/uL (NEGATIVE); NITRATE,URINE NEGATIVE (NEGATIVE); OCCULT BLOOD,URINE NEGATIVE (NEGATIVE)
[2025-06-05 23:00] LABS: ADD UA MICROSCOPIC YES
[2025-06-05 23:05] LABS: SQUAMOUS EPITHELIAL CELL,UR RARE /HPF (0-2)
[2025-06-06] VITALS (19 sets, daily range): BP systolic 119–144; BP diastolic 49–95; PULSE 72–104; RESP 16–20; TEMP 98.4–99.1; O2SAT 96–99
[2025-06-06 07:29] LABS: IMMATURE GRANULOCYTE ABSOLUTE 0.07 K/uL (0-1); NUCLEATED RED BLOOD CELLS 0.0 % (0.0-0.19); PLATELET COUNT (AUTO) 288 K/uL (130-400); RED BLOOD CELL COUNT(AUTO) 3.50 MIL/uL (4.00-5.50); RED CELL DISTRIBUTION WIDTH 13.8 % (11.0-15.5); WHITE BLOOD COUNT (AUTO) 7.9 K/uL (4.8-10.8)
[2025-06-06 07:36] LABS: CREATININE 0.7 mg/dL (0.5-1.0); GLOMERULAR FILTR. RATE CALC 88.0 mL/min (>90); GLUCOSE,RANDOM 170.0 mg/dL (70-105); SODIUM SERUM 136.0 mmol/L (136-145); UREA NITROGEN, BLOOD 20.0 mg/dL (7-18)
--- NOTE | 2025-06-06 13:50 | NUR ---
ADMISSION PATIENT TRANSFERRED FROM ICU TO MEDICAL SURGICAL UNIT. PATIENT ARRIVED VIA WHEELCHAIR AND IS UP TO CHAIR. FLUIDS INFUSING. PATIENT REPORTS NO PAIN. INFORMED PATIENT TO LET NURSE AWARE WHEN THEY WANT TO BE TRANSFERRED TO BED. PATIENT VERBALIZED UNDERSTANDING.
--- NOTE | 2025-06-06 13:52 | PN ---
[facility] PROGRESS NOTE Date of Service: Jun 06, 2025 Time of Service: 13:51 SUBJECTIVE: 79-year-old female with past medical history of hypertension, hyperlipidemia, diabetes mellitus type 2, GERD, osteoporosis history of urinary incontinence who presented to the hospital secondary to generalized weakness, malaise. Patient states for the past few days she has noted that she has been feeling very weak at home and has not been able to ambulate much. She denies any fever, chills, chest pain, shortness of breath, cough, abdominal pain, nausea, vomiting. Denied any changes in her urination. Denied any dysuria, hematuria. She feels very weak and is not able to stand up at home. She is able to move her upper and lower extremity without issues. Denied any falls, syncopal episode. Denied any numbness to the, numbness to the upper extremity. She complains of frontal headache which is mild. Patient was Recently seen in [facility] ER on May 30 and had a UA done which showed ESBL. She was actually discharged on cephalexin. She has not been taking her antibiotics consistently. EMS was called at home today where she was noted to have blood pressure in the 60s. She was thereafter brought to hospital for further evaluation Labs in the ER showed white count of 9.7, hemoglobin was 10.9, platelet count was 338 K, sodium was 134, potassium was 2.9, chloride was 95, bicarb was , creatinine was 1.0, blood glucose was 180 , , LFTs were unremarkable, troponin was negative x1 X-ray showed no acute infiltrates. On presentation to the ED patient's blood pressure was 88/44, temperature was 97.0, heart rate was 1 one two, patient was saturating 98% on room air. When seen at bedside patient's blood pressure was noted to be systolic in the 50s. She was alert oriented x4. She was given1 L NS in the ER and was started on vancomycin and cefepime. 06/06/2025: Patient was seen and evaluated bedside in room 219. She was awake and alert and lying comfortably in bed during the visit. Patient is currently off all vasopressor support and is maintaining her blood pressure independently. Nursing staff report flow significant events overnight. It was also noted that the blood pressure cuff was not properly position during EMS transport and earlier ED evaluation, which may have contributed to an accurate readings at that time. Currently, the patient is maintaining stable blood pressures without pharmacological support. Infectious diseases has been consulted and recommendations were pending. Patient continues on vancomycin and cefepime at this time. She appears clinically stable and appropriate for downgrade in level of care. Current vital signs include a BP of 141/75 and a heart rate of 99. patient is otherwise doing well. REVIEW OF SYSTEMS CONSTITUTIONAL: Denies fevers, chills, or night sweats. No unintentional weight loss reported. Positive for generalized malaise, weakness NEUROLOGICAL: Denies headache, amaurosis fugax, motor weakness, sensory deficit, vertigo/spinning sensation, gait abnormalities, or tremors. ENT: No hearing loss, otalgia, otorrhea, rhinitis, rhinorrhea, hoarseness, or sore throat. CARDIOVASCULAR: Denies any exertional angina, dyspnea on exertion, orthopnea, paroxysmal nocturnal dyspnea, palpitations, life-threatening arrhythmias, claudication. PULMONARY: Denies any shortness of breath, cough, phlegm/sputum, hemoptysis, pleuritic chest pain. GASTROINTESTINAL: Denies any type of dysphagia to either liquids or solids. Denies nausea, vomiting, pyrosis, early satiety, abdominal pain, diarrhea, constipation, or changes in stool consistency or caliber. Denies coffee-ground emesis, hematemesis, hematochezia, or melanotic stools. GENITOURINARY: Denies frequency, urgency, nocturia, hematuria or incontinence (Storage/Irritative symptoms.) Low urinary stream, straining to void, urinary intermittency or hesitancy, splitting of the voiding stream, terminal dribbling. ENDOCRINOLOGIC: Denies polyuria, polydipsia, polyphagia or heat/cold intolerances. HEMATOLOGIC: Denies thrombophilia/previous clots, or coagulopathy/bleeding disorders. ONCOLOGIC: Denies personal history of malignancy. DERMATOLOGIC: Denies rashes or pruritus. PSYCHIATRIC: Denies any suicidal or homicidal ideation. Denies hallucinations. PHYSICAL EXAM GENERAL APPEARANCE: The patient is awake, alert, and oriented, in no acute cardiopulmonary distress. NEUROLOGICAL: Cranial nerves II-XII grossly intact. Motor is 5/5 in bilateral upper and lower extremities proximal to distal. No sensory deficits. HEENT: Face is symmetric. Pupils are equal and reactive. Extraocular movements are intact. NECK: Supple. No JVD. No thyromegaly. No submental, submandibular, pre-/postauricular, occipital or supraclavicular lymphadenopathy. CHEST: Normal chest expansion. No Telemetry. LUNGS: Absence of any rales, rhonchi or any wheezing. CARDIOVASCULAR: Regular. S1 and S2 normal. No appreciable rubs, murmurs or gallops. ABDOMEN: Soft, nontender, and nondistended. There is no rebound, voluntary guarding, or rigidity. : Deferred. No Tubbs. EXTREMITIES: Non-edematous and not cyanotic. No clubbing. Good capillary refill. SKIN: No skin breakdown. Vital Signs (last 8hr) Date Time Temp Pulse Resp B/P (MAP) Pulse Ox O2 Delivery O2 Flow Rate FiO2 06/06/25 12:00 98.8 99 19 141/75 96 Room Air 06/06/25 11:00 102 19 132/63 96 Room Air 06/06/25 10:00 100 17 137/64 96 Room Air 06/06/25 09:00 91 17 129/79 99 Room Air 06/06/25 08:30 98 19 127/95 99 Room Air 06/06/25 08:00 98.6 98 19 125/49 98 Room Air 21 06/06/25 08:00 99 Room Air* 0 21 06/06/25 06:30 104 17 138/58 96 Room Air LABS: Laboratory: Test 06/06/25 11:52 06/06/25 07:22 06/05/25 22:43 06/05/25 12:12 Range/Units Whole Blood Glucose 222 H 70-110 MG/DL White Blood Count 7.9 4.8-10.8 K/uL Red Blood Count 3.50 L 4.00-5.50 MIL/uL Hemoglobin 9.6 L 12.0-16.0 g/dL Hematocrit 30.7 L 36-48 % Mean Corpuscular Volume 87.7 79-99 fL Mean Corpuscular Hemoglobin 27.4 27.0-33.0 pg Mean Corpuscular Hemoglobin Concent 31.3 L 32.0-36.0 g/dL Red Cell Distribution Width 13.8 11.0-15.5 % Platelet Count 288 130-400 K/uL Mean Platelet Volume 10.3 7.5-10.5 fL Immature Granulocyte % (Auto) 0.9 0-1 % Neutrophils (%) (Auto) 82.8 H 40.0-77.0 % Lymphocytes (%) (Auto) 10.1 L 21.0-51.0 % Monocytes (%) (Auto) 5.7 3.0-13.0 % Eosinophils (%) (Auto) 0.1 0.0-8.0 % Basophils (%) (Auto) 0.4 0.0-5.0 % Neutrophils # (Auto) 6.5 1.8-7.7 K/uL Lymphocytes # (Auto) 0.8 L 1.0-4.8 K/uL Monocytes # (Auto) 0.5 0.1-1.0 K/uL Eosinophils # (Auto) 0.01 0.00-0.70 K/uL Basophils # (Auto) 0.03 0.00-0.20 K/uL Absolute Immature Granulocyte (auto 0.07 0-1 K/uL Nucleated Red Blood Cells 0.0 0.0-0.19 % Sodium Level 136 136-145 mmol/L Potassium Level 3.8 3.5-5.1 mmol/L Chloride Level 105 101-111 mmol/L Carbon Dioxide Level 22 21-32 mmol/L Blood Urea Nitrogen 20 H 7-18 mg/dL Creatinine 0.7 0.5-1.0 mg/dL Glomerular Filtration Rate Calc 88 >90 mL/min Random Glucose 170 H 70-105 mg/dL Total Calcium 8.0 L 8.5-10.1 mg/dL Magnesium Level 1.90 1.80-2.40 mg/dL Urine Color LIGHT-YELLOW YELLOW Urine Appearance CLEAR CLEAR Urine pH 5.0 5.0-8.0 Urine Specific Bixby 1.014 1.001-1.031 Urine Protein 10 H NEGATIVE mg/dL Urine Glucose (UA) 50 H NEGATIVE mg/dL Urine Ketones 10 H NEGATIVE mg/dL Urine Occult Blood NEGATIVE NEGATIVE Urine Nitrate NEGATIVE NEGATIVE Urine Bilirubin NEGATIVE NEGATIVE mg/dL Urine Urobilinogen 0.2 0.2-1.0 mg/dL Urine Leukocyte Esterase NEGATIVE NEGATIVE Ananda/uL Urine RBC 2-5 H 0-1 /HPF Urine WBC 6-10 H 0-1 /HPF Urine Squamous Epithelial Cells RARE 0-2 /HPF Urine Bacteria RARE None Seen /HPF Urine Hyaline Casts 2-5 H 0-1 /LPF /LPF Blood Gas Specimen Type Arterial Arterial Blood pH 7.384 7.350-7.450 Arterial Blood Partial Pressure CO2 36 32-45 mmHg Arterial Blood Partial Pressure O2 77.0 L 83.0-108.0 mmHg Arterial Blood HCO3 21.1 21.0-28.0 mmol/L Arterial Blood Oxygen Saturation 94.5 94.0-98.0 % Arterial Blood Base Excess -3.4 L -2.0-3.0 mmol/L Hemoglobin (Blood Gas) 10.9 L 12.0-16.0 g/dL Sodium (Blood Gas) 135 L 136-145 MMOL/L Bedside Potassium (Blood Gas) 3.2 L 3.4-4.5 MMOL/L Bedside Chloride (Blood Gas) 102 98-107 MMOL/L Bedside Glucose (Blood Gas) 173 H 65-95 MG/DL Bedside Ionized Calcium (Blood Gas) 1.12 L 1.15-1.33 MMOL/L Bedside Lactic Acid (Blood Gas) 1.16 H 0.36-0.75 MMOL/L Blood Gas Temperature 37.0 35.5-37.0 CELSIUS Blood Gas Vent Mode ROOM AIR ROOM AIR FiO2 21.0 % Blood Gas Specimen Comment MATHEUS SANTOS RN Test 06/05/25 11:51 06/05/25 10:22 06/05/25 10:17 Range/Units Hemoglobin A1c 7.1 H 4.0-6.0 % Estimated Average Glucose (eAG) 157 H 70-126 mg/dL Lactic Acid Level 1.4 0.8-2.5 mmol/L C-Reactive Protein, Quantitative 97.20 H 0.5-3.0 mg/L Thyroid Stimulating Hormone (TSH) 1.57 0.36-3.74 uIU/mL Influenza Type A Antigen Negative For Type A NEGATIVE Influenza Type B Antigen Negative For Type B NEGATIVE SARS-CoV-2, RNA, NAAT NEGATIVE SARS CoV-2 NEGATIVE Prothrombin Time 11.0 9.6-11.6 SEC Prothromb Time International Ratio 1.04 0.85-1.15 Activated Partial Thromboplast Time 34.2 26.3-35.5 SEC Total Bilirubin 0.7 0.2-1.0 mg/dL Direct Bilirubin 0.2 0.0-0.3 mg/dL Aspartate Amino Transf (AST/SGOT) 15 10-37 U/L Alanine Aminotransferase (ALT/SGPT) 8 L 12-78 U/L Alkaline Phosphatase 74 50-136 U/L Troponin I High Sensitivity 30 4-50 ng/L Total Protein 7.2 6.0-8.3 g/dL Albumin 3.1 L 3.5-5.0 g/dL Procalcitonin 0.26 0.05-0.5 ng/mL Current Medications Medications (Trade) Dose Ordered Sig/Estela Route PRN Reason Start Time Stop Time Status Last Admin Dose Admin Acetaminophen (TYLenol 500MG TAB) 500 mg Q6H PRN PO MILD PAIN (1-3) 06/05/25 12:00 07/05/25 11:59 Famotidine (Pepcid 20mg Vial) 20 mg Q24H IV 06/05/25 21:00 07/05/25 20:59 06/05/25 20:00 20 MG Hydrocortisone Sodium Succinate (Solu-corTEF 100MG) 50 mg Q8H IV 06/05/25 14:00 06/06/25 12:06 DC 06/06/25 06:38 50 MG Insulin Human Regular (humuLIN R 100 UNIT/ML 3ML) INSULIN SLIDING SCAL... ACHS SQ 06/05/25 16:30 07/05/25 16:29 06/05/25 20:01 4 UNIT Magnesium Sulfate 50 ml @ 0 mls/hr PROTOCOL PRN IV hypomagnesemia 06/05/25 12:00 07/05/25 11:59 06/05/25 18:47 25 MLS/HR Meropenem (Merrem 1gm) 1 gm Q12H IVPB 06/05/25 12:00 06/15/25 11:59 06/06/25 12:06 1 GM Norepinephrine 250 ml @ 27.225 mls/ hr PROTOCOL IV 06/05/25 12:00 07/05/25 11:59 06/05/25 12:48 27.225 MLS/HR Ondansetron HCl (zoFRAN 4MG INJ) 4 mg Q6H PRN IVP NAUSEA/VOMITING 06/05/25 18:00 07/05/25 17:59 Pharmacy Profile Note (Pharmacy Communication) 1 each ONCE MISC 06/05/25 12:00 06/05/25 11:47 DC Phenylephrine HCl 10 mg/Sodium Chloride 250 ml @ 0 mls/hr PROTOCOL PRN IV PROTOCOL 06/05/25 12:30 07/05/25 12:29 06/05/25 16:17 136 MLS/HR Potassium Chloride 100 ml @ 100 mls/hr AD PRN IV POTASSIUM PROTOCOL 06/05/25 12:00 07/05/25 11:59 Potassium Chloride (K-Dur/Klor-Con 20meq) 20 meq AD PRN PO POTASSIUM PROTOCOL 06/05/25 12:00 07/05/25 11:59 06/06/25 09:29 20 MEQ Potassium Chloride (KCl 10% Elixir 20meq/15ml) 20 meq AD PRN PO POTASSIUM PROTOCOL 06/05/25 12:00 07/05/25 11:59 Sodium Chloride 1,000 ml @ 50 mls/hr Q20H IV 06/05/25 12:00 07/05/25 11:59 06/06/25 08:23 100 MLS/HR Vancomycin HCl 250 ml @ 125 mls/hr Q24H IV 06/06/25 18:00 06/16/25 17:59 Vancomycin HCl (Vancomycin Protocol) 1 each AD IV 06/05/25 12:00 06/19/25 11:59 Vasopressin 20 units/Sodium Chloride 100 ml @ 0 mls/hr PROTOCOL IV 06/05/25 14:00 07/05/25 13:59 06/05/25 15:21 9 MLS/HR DIAGNOSTICS / RADIOLOGY: [ ] ASSESSMENT: Suspected Septic shock POA Complicated UTI with urine culture growing ESBL E coli from cultures in 05/30 Dehydration Debility Hypertension Hyperlipidemia Diabetes mellitus type 2 GERD PLAN: Suspected septic shock: * On admission, blood pressure was 88/44, temperature of 97, and tachycardia with a HR of 112. * Records indicate ESBL E coli colonization in the urinary tract sensitive to meropenem, nitrofurantoin, piperacillin/tazobactam, gentamicin, and ceftazid jhony/avibactam. * Urinalysis during this hospitalization was negative for leukocyte esterase and nitrates. * Discontinue hydrocortisone 50 mg b.i.d. * Vasopressor support: previously on Donald-Synephrine 1.25 And vasopressin 0.03, currently discontinued. * Antibiotics: Receiving meropenem (day 1), and vancomycin (day 1). * Trends: CRP-97.2; Procalcitonin-0.06; WBC-9.7>7.9; lactic acid-1.9>1.4. * Infectious disease on board, pending formal recommendations. * We will downgrade the patient today. * Continue to monitor clinical status and laboratory trends. Hypokalemia and hypomagnesemia: * Patient's serum potassium and magnesium on admission was 2.9 and 1.5 respectively. * Patient placed on potassium replacement protocol, received PO potassium chloride 60 mEq in total. * Patient received a total of2 g magnesium as per protocol. * Today's serum potassium is at 3.8, and magnesium at 1.9. * Continue to monitor with serial labs. GI prophylaxis with Pepcid 20 mg b.i.d. DVT prophylaxis with SCDs DEVAUGHN AGUAYO MD Jun 06, 2025 13:52
--- NOTE | 2025-06-06 14:03 | PN ---
[facility] PROGRESS NOTE Date Patient Seen: Jun 06, 2025 Time of Visit: 14:01 Supervising Physician: Dr. Clayton PROBLEM LIST: Septic shock secondary to suspected cystitis Recent emergency room visit positive for ESBL cystitis Diabetes mellitus type 2 Chronic urinary incontinence Hypertension Hyperlipidemia INTERVAL HISTORY: Patient evaluated sitting in her recliner at bedside today, heart rate is currently 91, she is on room air with saturations above 96%, blood pressure is 132/63. Patient denies any acute distress at this time, she is awake alert and oriented, able to hold conversation, white count today is 7.9 with a hemoglobin of 9.6, patient has not had leukocytosis throughout her admission. At this time hypotensive episodes are believed to be secondary to a faulty blood pressure cuff, patient was removed from pressors upon arrival to the ICU in his lakhwinder ntained adequate blood pressure and perfusion. Patient's creatinine is 0.7 today, the remainder of her blood work is unremarkable. Patient's urinalysis is not impressive for cystitis, blood cultures pending final results, urine culture pending to be received. Patient likely with dehydration upon arrival, fluid resuscitation continues. Patient is downgraded to med surge at this time from ICU. Critical Care Services will sign off the case at this time. Recommendations Continue IV fluid hydration Continue catheter secondary to urinary incontinence Follow blood cultures Follow urine culture GI and DVT prophylaxis Follow morning labs REVIEW OF SYSTEMS: 12 point ROS reviewed with patient. Pertinent positives mentioned above. Otherw ise negative. PHYSICAL EXAM: GENERAL: alert, weak, awake oriented x 3 HEENT: EOMI, Sclera non icteric, moist mucosa NECK: Supple, no JVD, trachea midline LUNGS: Clear breath sounds bilaterally. No wheezes HEART: Regular rate and rhythm. Normal S1 and S2, without murmurs ABD: Abdomen soft, nontender. Bowel sounds present EXT: No clubbing cyanosis or edema NEURO: Alert and oriented to person, follows commands Vital Signs (last 8hr) Date Time Temp Pulse Resp B/P (MAP) Pulse Ox O2 Delivery O2 Flow Rate FiO2 06/06/25 12:00 98.8 99 19 141/75 96 Room Air 06/06/25 11:00 102 19 132/63 96 Room Air 06/06/25 10:00 100 17 137/64 96 Room Air 06/06/25 09:00 91 17 129/79 99 Room Air 06/06/25 08:30 98 19 127/95 99 Room Air 06/06/25 08:00 98.6 98 19 125/49 98 Room Air 21 06/06/25 08:00 99 Room Air* 0 21 06/06/25 06:30 104 17 138/58 96 Room Air LABS: Hematology Labs: Test 06/06/25 07:22 Range/Units White Blood Count 7.9 4.8-10.8 K/uL Red Blood Count 3.50 L 4.00-5.50 MIL/uL Hemoglobin 9.6 L 12.0-16.0 g/dL Hematocrit 30.7 L 36-48 % Mean Corpuscular Volume 87.7 79-99 fL Mean Corpuscular Hemoglobin 27.4 27.0-33.0 pg Mean Corpuscular Hemoglobin Concent 31.3 L 32.0-36.0 g/dL Red Cell Distribution Width 13.8 11.0-15.5 % Platelet Count 288 130-400 K/uL Mean Platelet Volume 10.3 7.5-10.5 fL Immature Granulocyte % (Auto) 0.9 0-1 % Neutrophils (%) (Auto) 82.8 H 40.0-77.0 % Lymphocytes (%) (Auto) 10.1 L 21.0-51.0 % Monocytes (%) (Auto) 5.7 3.0-13.0 % Eosinophils (%) (Auto) 0.1 0.0-8.0 % Basophils (%) (Auto) 0.4 0.0-5.0 % Neutrophils # (Auto) 6.5 1.8-7.7 K/uL Lymphocytes # (Auto) 0.8 L 1.0-4.8 K/uL Monocytes # (Auto) 0.5 0.1-1.0 K/uL Eosinophils # (Auto) 0.01 0.00-0.70 K/uL Basophils # (Auto) 0.03 0.00-0.20 K/uL Absolute Immature Granulocyte (auto 0.07 0-1 K/uL Nucleated Red Blood Cells 0.0 0.0-0.19 % Chemistry Labs: Test 06/06/25 11:52 06/06/25 07:22 06/05/25 11:51 06/05/25 10:17 Range/Units Whole Blood Glucose 222 H 70-110 MG/DL Sodium Level 136 136-145 mmol/L Potassium Level 3.8 3.5-5.1 mmol/L Chloride Level 105 101-111 mmol/L Carbon Dioxide Level 22 21-32 mmol/L Blood Urea Nitrogen 20 H 7-18 mg/dL Creatinine 0.7 0.5-1.0 mg/dL Glomerular Filtration Rate Calc 88 >90 mL/min Random Glucose 170 H 70-105 mg/dL Total Calcium 8.0 L 8.5-10.1 mg/dL Magnesium Level 1.90 1.80-2.40 mg/dL Hemoglobin A1c 7.1 H 4.0-6.0 % Estimated Average Glucose (eAG) 157 H 70-126 mg/dL Lactic Acid Level 1.4 0.8-2.5 mmol/L C-Reactive Protein, Quantitative 97.20 H 0.5-3.0 mg/L Thyroid Stimulating Hormone (TSH) 1.57 0.36-3.74 uIU/mL Total Bilirubin 0.7 0.2-1.0 mg/dL Direct Bilirubin 0.2 0.0-0.3 mg/dL Aspartate Amino Transf (AST/SGOT) 15 10-37 U/L Alanine Aminotransferase (ALT/SGPT) 8 L 12-78 U/L Alkaline Phosphatase 74 50-136 U/L Troponin I High Sensitivity 30 4-50 ng/L Total Protein 7.2 6.0-8.3 g/dL Albumin 3.1 L 3.5-5.0 g/dL Procalcitonin 0.26 0.05-0.5 ng/mL Coagulation Labs: Test 06/05/25 10:17 Range/Units Prothrombin Time 11.0 9.6-11.6 SEC Prothromb Time International Ratio 1.04 0.85-1.15 Activated Partial Thromboplast Time 34.2 26.3-35.5 SEC DIAGNOSTICS / RADIOLOGY RESULTS: [ ] PLAN NEURO: Minimize central acting medications as possible. Maintain fall precautions, adequate lighting during the day PULMONARY: Supplemental 02 as needed. Maintain aspiration precautions at all times CARDIOVASCULAR: Follow hemodynamics. Vital signs per facility protocol GI & NUTRITION: Continue with nutritional support. Continue stool softeners and laxatives as needed. KIDNEYS & ELECTROLYTES: Strict monitoring of intake, output and overall fluid balance. Avoid nephrotoxic medications to the extent possible. Medications to be dosed according to renal function. Monitor electrolytes and replace as needed ENDOCRINE: Maintain blood glucose between 100-180 at all times. Hypoglycemia protocol in place INFECTIOUS DISEASE: Trend temperature, WBC and procalcitonin level Follow cultures, deescalate antibiotics as soon as possible. Panculture if new onset fever ONCOLOGY/HEMATOLOGY/COAGULATION: Monitor for s/s of bleeding Monitor hemoglobin, coagulation studies as needed SKIN: Pressure ulcer prevention per facility protocol Specialty mattress ORTHO/REHAB: Continue PT/OT Prophylaxis: Continue GI and DVT prophylaxis Code Status: Full Resuscitation Disposition: TBD Other: Total patient care time exceeds 35 minutes excluding all procedures. RED MORRIS PAC Jun 06, 2025 14:03
[2025-06-06] MEDS: VANCOMYCIN 1.25 GM/250 ML BAG 250 ML IV SCH (19:56)
--- NOTE | 2025-06-06 20:07 | CONS ---
INFECTIOUS DISEASE CONSULTATION NOTE Date of Service: Jun 06, 2025 Reason for Consultation: Septic shock, urine culture with ESBL E coli on 06/01/2025. Requesting Physician: Dr. Mcgee. HISTORY OF PRESENT ILLNESS: This is a 79-year-old female patient with current medical history of diabetes mellitus and hypertension who presented to the hospital for generalized body weakness and malaise. Patient reported she was having frequent urination prior to hospitalization. Patient recently visited ER on 05/30/2025 with chief complaint of body aches, nausea and vomiting. At that time the urinalysis was positive and patient was discharged on cephalexin. The urine culture however came back positive for ESBL, E coli on 06/01/2025 and the reason for this consult. Patient has been started on Meropenem and vancomycin. On admission patient was hypotensive and was admitted to the ICU for vasopressor support. Patient has remained afebrile with a normal WBC. We will continue to follow patient's care REVIEW OF SYSTEMS CONSTITUTIONAL: Denies fever, chills, or fatigue. HEAD/FACE: No signs of trauma. EENT: Denies eye pain, blurred vision, double vision, or light sensitivity. RESPIRATORY: Denies shortness of breath, cough, wheezing CARDIOVASCULAR: Denies chest pain, palpitation, syncope GASTROINTESTINAL/ABDOMINAL: Denies abdominal pain, constipation, diarrhea, nausea or vomiting GENITOURINARY: Frequent urination prior to hospitalization. MUSCULOSKELETAL: Generalized weakness and malaise, POA. INTEGUMENTARY: Denies rash or itchiness NEUROLOGICAL/PSYCH: Denies anxiety, depression, heat or cold intolerance. PAST MEDICAL HISTORY: Diabetes mellitus. Hypertension. PAST SURGICAL HISTORY: Appendectomy. Right knee surgery. . PAST SOCIAL HISTORY: Denied current use of tobacco, alcohol or any other illicit drug. FAMILY HISTORY: Unknown. Coded Allergies: No Known Allergies (Unverified Allergy, 11/17/11) PHYSICAL EXAM EYES: Anicteric. Pupils equal and reactive. HENT: No oral thrush seen, moist Oral mucosa NECK: Supple, no JVD or thyromegaly. LUNGS: Good air entry. No rales, no rhonchi. CARDIOVASCULAR: S1, S2 regular. No murmur heard. ABDOMEN: Soft, non tender, bowel sounds present. CENTRAL NERVOUS SYSTEM: Awake, alert, oriented x 3. SKIN: No rashes, no swelling. LYMPHATICS: No peripheral lymphadenopathy MUSCULOSKELETAL: No joint swelling, erythema or tenderness. EXTREMITIES: No cyanosis or clubbing. Generalized body weakness. BACK: No deformity, no pressure ulcer. GENITOURINARY: No dysuria or hematuria. Vital Sign (Last 24 Hours) 06/06/25 06/06/25 08:00 16:03 Temp 98.8 Pulse 100 Resp 18 B/P (MAP) 131/60 Pulse Ox 95 O2 Delivery Room Air O2 Flow Rate 0 FiO2 21 Intake & Output (last 24hrs) 06/05/25 06/05/25 06/06/25 15:00 23:00 07:00 Intake Total 2000.0 ml 800.0 ml 800.0 ml Output Total 800 ml Balance 2000.0 ml 800.0 ml 0 ml LABS: Laboratory: Test 06/06/25 19:17 06/06/25 07:22 06/05/25 22:43 06/05/25 12:12 Range/Units Whole Blood Glucose 188 H 70-110 MG/DL White Blood Count 7.9 4.8-10.8 K/uL Red Blood Count 3.50 L 4.00-5.50 MIL/uL Hemoglobin 9.6 L 12.0-16.0 g/dL Hematocrit 30.7 L 36-48 % Mean Corpuscular Volume 87.7 79-99 fL Mean Corpuscular Hemoglobin 27.4 27.0-33.0 pg Mean Corpuscular Hemoglobin Concent 31.3 L 32.0-36.0 g/dL Red Cell Distribution Width 13.8 11.0-15.5 % Platelet Count 288 130-400 K/uL Mean Platelet Volume 10.3 7.5-10.5 fL Immature Granulocyte % (Auto) 0.9 0-1 % Neutrophils (%) (Auto) 82.8 H 40.0-77.0 % Lymphocytes (%) (Auto) 10.1 L 21.0-51.0 % Monocytes (%) (Auto) 5.7 3.0-13.0 % Eosinophils (%) (Auto) 0.1 0.0-8.0 % Basophils (%) (Auto) 0.4 0.0-5.0 % Neutrophils # (Auto) 6.5 1.8-7.7 K/uL Lymphocytes # (Auto) 0.8 L 1.0-4.8 K/uL Monocytes # (Auto) 0.5 0.1-1.0 K/uL Eosinophils # (Auto) 0.01 0.00-0.70 K/uL Basophils # (Auto) 0.03 0.00-0.20 K/uL Absolute Immature Granulocyte (auto 0.07 0-1 K/uL Nucleated Red Blood Cells 0.0 0.0-0.19 % Sodium Level 136 136-145 mmol/L Potassium Level 3.8 3.5-5.1 mmol/L Chloride Level 105 101-111 mmol/L Carbon Dioxide Level 22 21-32 mmol/L Blood Urea Nitrogen 20 H 7-18 mg/dL Creatinine 0.7 0.5-1.0 mg/dL Glomerular Filtration Rate Calc 88 >90 mL/min Random Glucose 170 H 70-105 mg/dL Total Calcium 8.0 L 8.5-10.1 mg/dL Magnesium Level 1.90 1.80-2.40 mg/dL Urine Color LIGHT-YELLOW YELLOW Urine Appearance CLEAR CLEAR Urine pH 5.0 5.0-8.0 Urine Specific [place] 1.014 1.001-1.031 Urine Protein 10 H NEGATIVE mg/dL Urine Glucose (UA) 50 H NEGATIVE mg/dL Urine Ketones 10 H NEGATIVE mg/dL Urine Occult Blood NEGATIVE NEGATIVE Urine Nitrate NEGATIVE NEGATIVE Urine Bilirubin NEGATIVE NEGATIVE mg/dL Urine Urobilinogen 0.2 0.2-1.0 mg/dL Urine Leukocyte Esterase NEGATIVE NEGATIVE Ananda/uL Urine RBC 2-5 H 0-1 /HPF Urine WBC 6-10 H 0-1 /HPF Urine Squamous Epithelial Cells RARE 0-2 /HPF Urine Bacteria RARE None Seen /HPF Urine Hyaline Casts 2-5 H 0-1 /LPF /LPF Blood Gas Specimen Type Arterial Arterial Blood pH 7.384 7.350-7.450 Arterial Blood Partial Pressure CO2 36 32-45 mmHg Arterial Blood Partial Pressure O2 77.0 L 83.0-108.0 mmHg Arterial Blood HCO3 21.1 21.0-28.0 mmol/L Arterial Blood Oxygen Saturation 94.5 94.0-98.0 % Arterial Blood Base Excess -3.4 L -2.0-3.0 mmol/L Hemoglobin (Blood Gas) 10.9 L 12.0-16.0 g/dL Sodium (Blood Gas) 135 L 136-145 MMOL/L Bedside Potassium (Blood Gas) 3.2 L 3.4-4.5 MMOL/L Bedside Chloride (Blood Gas) 102 98-107 MMOL/L Bedside Glucose (Blood Gas) 173 H 65-95 MG/DL Bedside Ionized Calcium (Blood Gas) 1.12 L 1.15-1.33 MMOL/L Bedside Lactic Acid (Blood Gas) 1.16 H 0.36-0.75 MMOL/L Blood Gas Temperature 37.0 35.5-37.0 CELSIUS Blood Gas Vent Mode ROOM AIR ROOM AIR FiO2 21.0 % Blood Gas Specimen Comment RR TOM RN Test 06/05/25 11:51 06/05/25 10:22 06/05/25 10:17 Range/Units Hemoglobin A1c 7.1 H 4.0-6.0 % Estimated Average Glucose (eAG) 157 H 70-126 mg/dL Lactic Acid Level 1.4 0.8-2.5 mmol/L C-Reactive Protein, Quantitative 97.20 H 0.5-3.0 mg/L Thyroid Stimulating Hormone (TSH) 1.57 0.36-3.74 uIU/mL Influenza Type A Antigen Negative For Type A NEGATIVE Influenza Type B Antigen Negative For Type B NEGATIVE SARS-CoV-2, RNA, NAAT NEGATIVE SARS CoV-2 NEGATIVE Prothrombin Time 11.0 9.6-11.6 SEC Prothromb Time International Ratio 1.04 0.85-1.15 Activated Partial Thromboplast Time 34.2 26.3-35.5 SEC Total Bilirubin 0.7 0.2-1.0 mg/dL Direct Bilirubin 0.2 0.0-0.3 mg/dL Aspartate Amino Transf (AST/SGOT) 15 10-37 U/L Alanine Aminotransferase (ALT/SGPT) 8 L 12-78 U/L Alkaline Phosphatase 74 50-136 U/L Troponin I High Sensitivity 30 4-50 ng/L Total Protein 7.2 6.0-8.3 g/dL Albumin 3.1 L 3.5-5.0 g/dL Procalcitonin 0.26 0.05-0.5 ng/mL DIAGNOSTICS / RADIOLOGY: PATIENT: YOGI B[place]MINGHAM ACCT: [id number] LOC: [facility] U: [id number] AGE/SX: 79/F ROOM: RE05/30/[address]: CHIQUITA ERICKSON DOB: 1945 BED: DIS: STATUS: DEP ER TLOC: SPEC: [id number] [place]: 05/30/25 STATUS: COMP REQ: [id number] RECD: 05/31/[address]: JHONNY ANDRADE CNP SOURCE: [facility] [place] ENTR: 05/31/[address]: [facility]O [facility] CHIQUITA ERICKSON MD ORDERED: AERO ID & SENS COMMENTS: NOTIFIED ER CHARGE NURSE ARIANNA ERICKSON ESBL ON 06/01/25 AND FAXED TO [facility] AND ER BY MARCO ANTONIO Procedure Result Alesha Date-Time AEROBIC ID & SENSITIVITIES Final 06/01/25-0651 MRL EXTENDED SPECTRUM BETA-LACTAMASE ORGANISM IDENTIFIED. CRITICAL RESULT WAS CALLED BY JANNETTE EDWARDS ON 06/01/25 AT 0649. CRITICAL VALUES WERE READ BACK AND ACKNOWLEDGED BY SHERIN WOODY ([facility] [place]) COLONY DESCRIPTION: DAY 1: COLONY COUNT: >100,000 CFU/ML GRAM NEGATIVE RODS IDENTIFICATION AND SENSITIVITY TO FOLLOW COMMENTS(R): ESBL ESCHERICHIA COLI E COLI M.I.C. RX --------- ---- AMPICILLIN >16 R* AZTREONAM >16 ESBL CEFAZOLIN >16 R* CEFTAZIDIME 16 ESBL CEFTAZIDIME/AVIBACTAM <=8 S CEFTRIAXONE >2 ESBL CIPROFLOXACIN >2 R GENTAMICIN <=2 S LEVOFLOXACIN >4 R NITROFURANTOIN <=32 S MEROPENEM <=1 S PIPERACILLIN/TAZOBACTAM <=8 S TRIMETHOPRIM/SUFLAMETHOXAZOLE > R ASSESSMENT: Urinary tract infection with ESBL E coli. Infection with multidrug resistant organism. Diabetes mellitus. Debility. PLAN: Continue Meropenem. Continue vancomycin per pharmacy protocol. We will follow up on the final blood culture results. Continue anti diabetics. Continue physical therapy. Thank you for allowing ID to participate in the care of this patient. This case was reviewed and discussed with my supervising physician Dr. Ortiz and the above assessment and plan was formulated and agreed upon. ATTESTATION BY PHYSICIAN I have seen and examined the patient. I reviewed the documentation, medical decision making, and treatment plan as noted by the mid-level provider above. I agree with the findings and plan of care. LIZZETH ORTIZ MD, [facility]TA [facility] Jun 06, 2025 20:07
[2025-06-07] VITALS (7 sets, daily range): BP systolic 146–164; BP diastolic 76–88; PULSE 84–108; RESP 18–20; TEMP 97.9–98.4; O2SAT 96–97
--- NOTE | 2025-06-07 04:30 | NUR ---
nurse note patient is alert and oriented times person. plan of care discussed with her and she verbalized understanding. patient has no pain tonight. amirah and i moved her on her sides to prevent skin breakdown. patient has slept about 8 hours tonight. 2 old iv catheters removed and 2 new ones placed on the right arm. call light within reach, bed alarm on, 2 side rails up. will continue to monitor patient.
[2025-06-07 04:48] LABS: IMMATURE GRANULOCYTE ABSOLUTE 0.08 K/uL (0-1); NUCLEATED RED BLOOD CELLS 0.0 % (0.0-0.19); PLATELET COUNT (AUTO) 307 K/uL (130-400); RED BLOOD CELL COUNT(AUTO) 3.36 MIL/uL (4.00-5.50); RED CELL DISTRIBUTION WIDTH 13.8 % (11.0-15.5); WHITE BLOOD COUNT (AUTO) 9.2 K/uL (4.8-10.8)
[2025-06-07 04:57] LABS: INR 1.05 (0.85-1.15)
[2025-06-07 05:06] LABS: ASPARTATE AMINOTRANSFERASE 18.0 U/L (10-37); CREATININE 0.7 mg/dL (0.5-1.0); GLOMERULAR FILTR. RATE CALC 88.0 mL/min (>90); GLUCOSE,RANDOM 124.0 mg/dL (70-105); SODIUM SERUM 139.0 mmol/L (136-145); TOTAL PROTEIN, SERUM 6.0 g/dL (6.0-8.3); UREA NITROGEN, BLOOD 17.0 mg/dL (7-18)
--- NOTE | 2025-06-07 13:21 | PN ---
[facility] PROGRESS NOTE Date Patient Seen: Jun 07, 2025 Time of Visit: 13:21 Supervising Physician: Dr. Neo Clayton PROBLEM LIST: Septic shock secondary to suspected acute complicated cystitis Recent emergency room visit positive for ESBL cystitis Infection multi drug resistant organism Diabetes mellitus type 2 Chronic urinary incontinence Hypertension Hyperlipidemia INTERVAL HISTORY: Patient evaluated and seen while resting outside the bed chair with family members present, awake alert appears in no acute distress, accompanied by patient's bedside nurse. Vital signs stable. Afebrile. Lab results: WBC 9.2, hemoglobin 9.1, hematocrit 29.1, platelets 307, sodium 141, potassium 4.3, CO2 26, BUN 14, creatinine 0.5, GFR 96, albumin 2.7 Vital signs: Temperature 98.2, pulse 84, blood pressure 150/85, respirations 18, oxygen saturation 99% on room air, FiO2, 21. Reviewed and discussed with patient antibiotics using treatment of ESBL we will continue with Mirapex him and vancomycin, pharmacy to dose, per recommendations of Infectious Disease specialists. Further orders per course of stay. Dispo per primary team a.m. labs ordered Recommendations Continue IV fluid hydration Continue catheter secondary to urinary incontinence Follow blood cultures Follow urine culture GI and DVT prophylaxis Follow morning labs REVIEW OF SYSTEMS: 12 point ROS reviewed with patient. Pertinent positives mentioned above. Otherwise negative. PHYSICAL EXAM: GENERAL: alert, weak, awake oriented x 3 HEENT: EOMI, Sclera non icteric, moist mucosa NECK: Supple, no JVD, trachea midline LUNGS: Clear breath sounds bilaterally. No wheezes HEART: Regular rate and rhythm. Normal S1 and S2, without murmurs ABD: Abdomen soft, nontender. Bowel sounds present EXT: No clubbing cyanosis or edema NEURO: Alert and oriented to person, follows commands Vital Signs (last 8hr) Date Time Temp Pulse Resp B/P (MAP) Pulse Ox O2 Delivery O2 Flow Rate FiO2 06/07/25 12:00 98.2 84 18 150/85 99 Room Air 21 06/07/25 08:03 97 Room Air* 0 21 06/07/25 08:00 98.1 108 18 162/76 97 Room Air 21 LABS: Hematology Labs: Test 06/07/25 04:23 Range/Units White Blood Count 9.2 4.8-10.8 K/uL Red Blood Count 3.36 L 4.00-5.50 MIL/uL Hemoglobin 9.1 L 12.0-16.0 g/dL Hematocrit 29.2 L 36-48 % Mean Corpuscular Volume 86.9 79-99 fL Mean Corpuscular Hemoglobin 27.1 27.0-33.0 pg Mean Corpuscular Hemoglobin Concent 31.2 L 32.0-36.0 g/dL Red Cell Distribution Width 13.8 11.0-15.5 % Platelet Count 307 130-400 K/uL Mean Platelet Volume 10.6 H 7.5-10.5 fL Immature Granulocyte % (Auto) 0.9 0-1 % Neutrophils (%) (Auto) 66.4 40.0-77.0 % Lymphocytes (%) (Auto) 20.8 L 21.0-51.0 % Monocytes (%) (Auto) 8.7 3.0-13.0 % Eosinophils (%) (Auto) 2.2 0.0-8.0 % Basophils (%) (Auto) 1.0 0.0-5.0 % Neutrophils # (Auto) 6.1 1.8-7.7 K/uL Lymphocytes # (Auto) 1.9 1.0-4.8 K/uL Monocytes # (Auto) 0.8 0.1-1.0 K/uL Eosinophils # (Auto) 0.20 0.00-0.70 K/uL Basophils # (Auto) 0.09 0.00-0.20 K/uL Absolute Immature Granulocyte (auto 0.08 0-1 K/uL Nucleated Red Blood Cells 0.0 0.0-0.19 % Chemistry Labs: Test 06/07/25 10:55 06/07/25 04:23 06/06/25 07:22 Range/Units Whole Blood Glucose 198 #H 70-110 MG/DL Sodium Level 139 136-145 mmol/L Potassium Level 3.5 3.5-5.1 mmol/L Chloride Level 107 101-111 mmol/L Carbon Dioxide Level 25 21-32 mmol/L Blood Urea Nitrogen 17 7-18 mg/dL Creatinine 0.7 0.5-1.0 mg/dL Glomerular Filtration Rate Calc 88 >90 mL/min Random Glucose 124 H 70-105 mg/dL Total Calcium 8.0 L 8.5-10.1 mg/dL Total Bilirubin 0.4 0.2-1.0 mg/dL Aspartate Amino Transf (AST/SGOT) 18 10-37 U/L Alanine Aminotransferase (ALT/SGPT) 11 L 12-78 U/L Alkaline Phosphatase 71 50-136 U/L C-Reactive Protein, Quantitative 35.10 H 0.5-3.0 mg/L Total Protein 6.0 6.0-8.3 g/dL Albumin 2.5 L 3.5-5.0 g/dL Magnesium Level 1.90 1.80-2.40 mg/dL Cortisol AM Sample 92.2 H 6.2-19.4 ug/dL Coagulation Labs: Test 06/07/25 04:23 Range/Units Prothrombin Time 11.1 9.6-11.6 SEC Prothromb Time International Ratio 1.05 0.85-1.15 Activated Partial Thromboplast Time 32.2 26.3-35.5 SEC DIAGNOSTICS / RADIOLOGY RESULTS: [ ] PLAN NEURO: Minimize central acting medications as possible. Maintain fall precautions, adequate lighting during the day PULMONARY: Supplemental 02 as needed. Maintain aspiration precautions at all times CARDIOVASCULAR: Follow hemodynamics. Vital signs per facility protocol GI & NUTRITION: Continue with nutritional support. Continue stool softeners and laxatives as needed. KIDNEYS & ELECTROLYTES: Strict monitoring of intake, output and overall fluid balance. Avoid nephrotoxic medications to the extent possible. Medications to be dosed according to renal function. Monitor electrolytes and replace as needed ENDOCRINE: Maintain blood glucose between 100-180 at all times. Hypoglycemia protocol in place INFECTIOUS DISEASE: Trend temperature, WBC and procalcitonin level Follow cultures, deescalate antibiotics as soon as possible. Panculture if new onset fever ONCOLOGY/HEMATOLOGY/COAGULATION: Monitor for s/s of bleeding Monitor hemoglobin, coagulation studies as needed SKIN: Pressure ulcer prevention per facility protocol Specialty mattress ORTHO/REHAB: Continue PT/OT Prophylaxis: Continue GI and DVT prophylaxis Code Status: Full Resuscitation Disposition: TBD Other: Total patient care time exceeds 35 minutes excluding all procedures. AN TAYLOR AGACNP Jun 07, 2025 13:21
--- NOTE | 2025-06-07 16:27 | PN ---
[facility] PROGRESS NOTE Date of Service: Jun 07, 2025 Time of Service: 16:19 SUBJECTIVE: 79-year-old female with past medical history of hypertension, hyperlipidemia, diabetes mellitus type 2, GERD, osteoporosis history of urinary incontinence who presented to the hospital secondary to generalized weakness, malaise. Patient states for the past few days she has noted that she has been feeling very weak at home and has not been able to ambulate much. She denies any fever, chills, chest pain, shortness of breath, cough, abdominal pain, nausea, vomiting. Denied any changes in her urination. Denied any dysuria, hematuria. She feels very weak and is not able to stand up at home. She is able to move her upper and lower extremity without issues. Denied any falls, syncopal episode. Denied any numbness to the, numbness to the upper extremity. She complains of frontal headache which is mild. Patient was Recently seen in [facility] ER on May 30 and had a UA done which showed ESBL. She was actually discharged on cephalexin. She has not been taking her antibiotics consistently. EMS was called at home today where she was noted to have blood pressure in the 60s. She was thereafter brought to hospital for further evaluation Labs in the ER showed white count of 9.7, hemoglobin was 10.9, platelet count was 338 K, sodium was 134, potassium was 2.9, chloride was 95, bicarb was , creatinine was 1.0, blood glucose was 180 , , LFTs were unremarkable, troponin was negative x1 X-ray showed no acute infiltrates. On presentation to the ED patient's blood pressure was 88/44, temperature was 97.0, heart rate was 1 one two, patient was saturating 98% on room air. When seen at bedside patient's blood pressure was noted to be systolic in the 50s. She was alert oriented x4. She was given1 L NS in the ER and was started on vancomycin and cefepime. 06/06/2025: Patient was seen and evaluated bedside in room 219. She was awake and alert and lying comfortably in bed during the visit. Patient is currently off all vasopressor support and is maintaining her blood pressure independently. Nursing staff report flow significant events overnight. It was also noted that the blood pressure cuff was not properly position during EMS transport and earlier ED evaluation, which may have contributed to an accurate readings at that time. Currently, the patient is maintaining stable blood pressures without pharmacological support. Infectious diseases has been consulted and recommendations were pending. Patient continues on vancomycin and cefepime at this time. She appears clinically stable and appropriate for downgrade in level of care. Current vital signs include a BP of 141/75 and a heart rate of 99. patient is otherwise doing well. 06/07/2025: Patient was seen and evaluated bedside in room 419. She was awake and alert, but oriented only to person. Patient denies any significant complaints today. She reports having home health provider who visits daily. At this time, the patient's baseline mental status is unclear, and efforts will be made to contact family to better assess her baseline cognitive function. Pulmonary and critical care has signed off, as the patient is hemodynamically stable. Infectious disease recommends continuing the current antibiotic regimen pending final blood culture results. Patient continues to improve clinically with down trending CRP. Vitals signs are stable, with blood pressure of 150/85 and heart rate 84. The plan is to continue monitoring, follow Infectious Disease recommendations, and clarify baseline mental status with family. REVIEW OF SYSTEMS CONSTITUTIONAL: Denies fevers, chills, or night sweats. No unintentional weight loss reported. Positive for generalized malaise, weakness NEUROLOGICAL: Denies headache, amaurosis fugax, motor weakness, sensory deficit, vertigo/spinning sensation, gait abnormalities, or tremors. ENT: No hearing loss, otalgia, otorrhea, rhinitis, rhinorrhea, hoarseness, or sore throat. CARDIOVASCULAR: Denies any exertional angina, dyspnea on exertion, orthopnea, paroxysmal nocturnal dyspnea, palpitations, life-threatening arrhythmias, claudication. PULMONARY: Denies any shortness of breath, cough, phlegm/sputum, hemoptysis, pleuritic chest pain. GASTROINTESTINAL: Denies any type of dysphagia to either liquids or solids. Denies nausea, vomiting, pyrosis, early satiety, abdominal pain, diarrhea, c onstipation, or changes in stool consistency or caliber. Denies coffee-ground emesis, hematemesis, hematochezia, or melanotic stools. GENITOURINARY: Denies frequency, urgency, nocturia, hematuria or incontinence (Storage/Irritative symptoms.) Low urinary stream, straining to void, urinary intermittency or hesitancy, splitting of the voiding stream, terminal dribbling. ENDOCRINOLOGIC: Denies polyuria, polydipsia, polyphagia or heat/cold intolerances. HEMATOLOGIC: Denies thrombophilia/previous clots, or coagulopathy/bleeding disorders. ONCOLOGIC: Denies personal history of malignancy. DERMATOLOGIC: Denies rashes or pruritus. PSYCHIATRIC: Denies any suicidal or homicidal ideation. Denies hallucinations. PHYSICAL EXAM GENERAL APPEARANCE: The patient is awake, alert, and oriented, in no acute ca rdiopulmonary distress. NEUROLOGICAL: Cranial nerves II-XII grossly intact. Motor is 5/5 in bilateral upper and lower extremities proximal to distal. No sensory deficits. HEENT: Face is symmetric. Pupils are equal and reactive. Extraocular movements are intact. NECK: Supple. No JVD. No thyromegaly. No submental, submandibular, pre- /postauricular, occipital or supraclavicular lymphadenopathy. CHEST: Normal chest expansion. No Telemetry. LUNGS: Absence of any rales, rhonchi or any wheezing. CARDIOVASCULAR: Regular. S1 and S2 normal. No appreciable rubs, murmurs or gallops. ABDOMEN: Soft, nontender, and nondistended. There is no rebound, voluntary guarding, or rigidity. : Deferred. No Tubbs. EXTREMITIES: Non-edematous and not cyanotic. No clubbing. Good capillary refill. SKIN: No skin breakdown. Vital Signs (last 8hr) Date Time Temp Pulse Resp B/P (MAP) Pulse Ox O2 Delivery O2 Flow Rate FiO2 06/07/25 12:00 98.2 84 18 150/85 99 Room Air 21 LABS: Laboratory: Test 06/07/25 15:00 06/07/25 04:23 06/06/25 07:22 06/05/25 22:43 Range/Units Whole Blood Glucose 225 H 70-110 MG/DL White Blood Count 9.2 4.8-10.8 K/uL Red Blood Count 3.36 L 4.00-5.50 MIL/uL Hemoglobin 9.1 L 12.0-16.0 g/dL Hematocrit 29.2 L 36-48 % Mean Corpuscular Volume 86.9 79-99 fL Mean Corpuscular Hemoglobin 27.1 27.0-33.0 pg Mean Corpuscular Hemoglobin Concent 31.2 L 32.0-36.0 g/dL Red Cell Distribution Width 13.8 11.0-15.5 % Platelet Count 307 130-400 K/uL Mean Platelet Volume 10.6 H 7.5-10.5 fL Immature Granulocyte % (Auto) 0.9 0-1 % Neutrophils (%) (Auto) 66.4 40.0-77.0 % Lymphocytes (%) (Auto) 20.8 L 21.0-51.0 % Monocytes (%) (Auto) 8.7 3.0-13.0 % Eosinophils (%) (Auto) 2.2 0.0-8.0 % Basophils (%) (Auto) 1.0 0.0-5.0 % Neutrophils # (Auto) 6.1 1.8-7.7 K/uL Lymphocytes # (Auto) 1.9 1.0-4.8 K/uL Monocytes # (Auto) 0.8 0.1-1.0 K/uL Eosinophils # (Auto) 0.20 0.00-0.70 K/uL Basophils # (Auto) 0.09 0.00-0.20 K/uL Absolute Immature Granulocyte (auto 0.08 0-1 K/uL Nucleated Red Blood Cells 0.0 0.0-0.19 % Prothrombin Time 11.1 9.6-11.6 SEC Prothromb Time International Ratio 1.05 0.85-1.15 Activated Partial Thromboplast Time 32.2 26.3-35.5 SEC Sodium Level 139 136-145 mmol/L Potassium Level 3.5 3.5-5.1 mmol/L Chloride Level 107 101-111 mmol/L Carbon Dioxide Level 25 21-32 mmol/L Blood Urea Nitrogen 17 7-18 mg/dL Creatinine 0.7 0.5-1.0 mg/dL Glomerular Filtration Rate Calc 88 >90 mL/min Random Glucose 124 H 70-105 mg/dL Total Calcium 8.0 L 8.5-10.1 mg/dL Total Bilirubin 0.4 0.2-1.0 mg/dL Aspartate Amino Transf (AST/SGOT) 18 10-37 U/L Alanine Aminotransferase (ALT/SGPT) 11 L 12-78 U/L Alkaline Phosphatase 71 50-136 U/L C-Reactive Protein, Quantitative 35.10 H 0.5-3.0 mg/L Total Protein 6.0 6.0-8.3 g/dL Albumin 2.5 L 3.5-5.0 g/dL Magnesium Level 1.90 1.80-2.40 mg/dL Cortisol AM Sample 92.2 H 6.2-19.4 ug/dL Urine Color LIGHT-YELLOW YELLOW Urine Appearance CLEAR CLEAR Urine pH 5.0 5.0-8.0 Urine Specific [place] 1.014 1.001-1.031 Urine Protein 10 H NEGATIVE mg/dL Urine Glucose (UA) 50 H NEGATIVE mg/dL Urine Ketones 10 H NEGATIVE mg/dL Urine Occult Blood NEGATIVE NEGATIVE Urine Nitrate NEGATIVE NEGATIVE Urine Bilirubin NEGATIVE NEGATIVE mg/dL Urine Urobilinogen 0.2 0.2-1.0 mg/dL Urine Leukocyte Esterase NEGATIVE NEGATIVE Ananda/uL Urine RBC 2-5 H 0-1 /HPF Urine WBC 6-10 H 0-1 /HPF Urine Squamous Epithelial Cells RARE 0-2 /HPF Urine Bacteria RARE None Seen /HPF Urine Hyaline Casts 2-5 H 0-1 /LPF /LPF Current Medications Medications (Trade) Dose Ordered Sig/Estela Route PRN Reason Start Time Stop Time Status Last Admin Dose Admin Acetaminophen (TYLenol 500MG TAB) 500 mg Q6H PRN PO MILD PAIN (1-3) 06/05/25 12:00 07/05/25 11:59 Atorvastatin Calcium (LIPItor 40MG) 40 mg HS PO 06/07/25 21:00 07/07/25 20:59 Duloxetine HCl (CymbALTA 30 mg CAP) 60 mg HS PO 06/07/25 21:00 07/07/25 20:59 Enoxaparin Sodium (Lovenox) 40 mg DAILY SQ 06/08/25 09:00 07/08/25 08:59 Famotidine (Pepcid 20mg Vial) 20 mg Q24H IV 06/05/25 21:00 07/05/25 20:59 06/06/25 19:56 20 MG Hydrochlorothiazide (hydroCHLOROthiazide 25MG) 12.5 mg DAILY PO 06/08/25 09:00 07/08/25 08:59 Hydrocortisone Sodium Succinate (Solu-corTEF 100MG) 50 mg Q8H IV 06/05/25 14:00 06/06/25 12:06 DC 06/06/25 06:38 50 MG Insulin Human Regular (humuLIN R 100 UNIT/ML 3ML) INSULIN SLIDING SCAL... ACHS SQ 12/23/25 16:30 07/05/25 16:29 06/07/25 11:14 2 UNIT Magnesium Sulfate 50 ml @ 0 mls/hr PROTOCOL PRN IV hypomagnesemia 06/05/25 12:00 07/05/25 11:59 06/05/25 18:47 25 MLS/HR Meropenem (Merrem 1gm) 1 gm Q12H IVPB 06/05/25 12:00 06/15/25 11:59 06/07/25 11:11 1 GM Norepinephrine 250 ml @ 27.225 mls/ hr PROTOCOL IV 06/05/25 12:00 07/05/25 11:59 06/05/25 12:48 27.225 MLS/HR Ondansetron HCl (zoFRAN 4MG INJ) 4 mg Q6H PRN IVP NAUSEA/VOMITING 06/05/25 18:00 07/05/25 17:59 Oxybutynin Chloride (oxyBUTYnin chloRIDE) 5 mg BID PO 06/07/25 21:00 07/07/25 20:59 Pharmacy Profile Note (Pharmacy Communication) 1 each ONCE MISC 06/05/25 12:00 06/05/25 11:47 DC Phenylephrine HCl 10 mg/Sodium Chloride 250 ml @ 0 mls/hr PROTOCOL PRN IV PROTOCOL 06/05/25 12:30 07/05/25 12:29 06/05/25 16:17 136 MLS/HR Potassium Chloride 100 ml @ 100 mls/hr AD PRN IV POTASSIUM PROTOCOL 06/05/25 12:00 07/05/25 11:59 Potassium Chloride (K-Dur/Klor-Con 20meq) 20 meq AD PRN PO POTASSIUM PROTOCOL 06/05/25 12:00 07/05/25 11:59 06/07/25 05:51 20 MEQ Potassium Chloride (KCl 10% Elixir 20meq/15ml) 20 meq AD PRN PO POTASSIUM PROTOCOL 06/05/25 12:00 07/05/25 11:59 Sertraline HCl (ZOloft 50 mg tab) 100 mg HS PO 06/07/25 21:00 07/07/25 20:59 Sodium Chloride 1,000 ml @ 50 mls/hr Q20H IV 06/05/25 12:00 07/05/25 11:59 06/06/25 23:35 50 MLS/HR Vancomycin HCl 250 ml @ 125 mls/hr Q24H IV 06/06/25 18:00 06/16/25 17:59 06/06/25 19:56 125 MLS/HR Vancomycin HCl (Vancomycin Protocol) 1 each AD IV 06/05/25 12:00 06/19/25 11:59 Vasopressin 20 units/Sodium Chloride 100 ml @ 0 mls/hr PROTOCOL IV 06/05/25 14:00 07/05/25 13:59 06/05/25 15:21 9 MLS/HR DIAGNOSTICS / RADIOLOGY: [place] [address] [place] [address] IMAGING REPORT Signed PATIENT: YOGI BIRMINGHAM MR#: [id number] : 1945 SEX: F AGE: 79 LOCATION: [facility] ORDER 1309 STATUS: ADM IN REPORT#: [id number] SERVICE 1308 REASON: rule out dvt ORDERING PHYSICIAN: JONEL HASSAN MD PROCEDURE: VENOUS CHANDRIKA - US VENOUS DOPPLER BILATERAL EXAM: US for Deep Venous Thrombosis, bilateral Lower Extremity. CLINICAL HISTORY: Leg Pain and Swelling TECHNIQUE: Real-time ultrasound scan of the veins of the bilateral lower extremity with color Doppler flow, spectral waveform analysis and compression. COMPARISON: Study dated 04/27. FINDINGS: DEEP VEINS: The common femoral, superficial femoral, and popliteal veins are echolucent and compressible. There is normal color Doppler flow throughout. The visualized calf veins appear patent. SOFT TISSUES: No popliteal fossa cyst or other abnormalities. IMPRESSION: 1. No evidence of deep venous thrombosis in the bilateral lower extremities. /[place] DICTATED BY: AYALA YOUSIF MD DATE: 06/05/251649 ELECTRONICALLY SIGNED BY: AYALA YOUSIF MD DATE: 06/05/251649 ASSESSMENT: Suspected Septic shock POA Complicated UTI with urine culture growing ESBL E coli from cultures in 05/30 Dehydration Hypokalemia Hypomagnesemia Chronic urinary retention, POA Debility Hypertension Hyperlipidemia Diabetes mellitus type 2 GERD PLAN: Suspected septic shock: * On admission, blood pressure was 88/44, temperature of 97, and tachycardia with a HR of 112. * Records indicate ESBL E coli colonization in the urinary tract sensitive to meropenem, nitrofurantoin, piperacillin/tazobactam, gentamicin, and ceftazidime/avibactam. * Urinalysis during this hospitalization was negative for leukocyte esterase and nitrates. * Discontinue hydrocortisone 50 mg b.i.d. * Vasopressor support: previously on Donald-Synephrine 1.25 And vasopressin 0.03, currently discontinued. * Antibiotics: Receiving meropenem (day 2), and vancomycin (day 2). * Trends: CRP-97.2 >35.1; Procalcitonin-0.06; WBC-9.7>7.9>9.2; lactic acid- 1.9>1.4. * Infectious disease on board, pending formal recommendations. * Continue to monitor clinical status and laboratory trends. Hypokalemia and hypomagnesemia: * Patient's serum potassium and magnesium on admission was 2.9 and 1.5 respectively. * Patient placed on potassium replacement protocol, received PO potassium chloride 100 mEq in total. * Patient received a total of 2g magnesium as per protocol. * Today's serum potassium is at 3.5, and magnesium at 1.9. * Continue to monitor with serial labs. GI prophylaxis with Pepcid 20 mg b.i.d. DVT prophylaxis with SCDs and Lovenox ATTESTATION BY PHYSICIAN I have seen and examined the patient. I reviewed the documentation, medical decision making, and treatment plan as noted by the resident physician above. I agree with the findings and plan of care. MADI FLOWERS MD, HEMA MD Jun 07, 2025 16:27
--- NOTE | 2025-06-07 22:59 | PN ---
INFECTIOUS DISEASE PROGRESS NOTE Date of Service: Jun 07, 2025 SUBJECTIVE: Patient was seen at bedside in room 419 Patient is awake, alert and able to answer questions appropriately. Patient remains afebrile this morning. Continues on Meropenem and vancomycin. No reports of nausea or vomiting. PHYSICAL EXAM EYES: Anicteric. Pupils equal and reactive. HENT: No oral thrush seen, moist Oral mucosa. NECK: Supple, no JVD or thyromegaly. LUNGS: Good air entry. No rales, no rhonchi. CARDIOVASCULAR: S1, S2 regular. No murmur heard. ABDOMEN: Soft, non tender, bowel sounds present. CENTRAL NERVOUS SYSTEM: Awake, alert, oriented x 3. SKIN: No rashes, no swelling. LYMPHATICS: No peripheral lymphadenopathy. MUSCULOSKELETAL: No joint swelling, erythema or tenderness. EXTREMITIES: No cyanosis or clubbing. Weakness. BACK: No deformity, no pressure ulcer. GENITOURINARY: No dysuria or hematuria. Vital Sign (Last 12 Hours) 06/07/25 06/07/25 06/07/25 12:00 16:00 19:15 Temp 98.2 98.1 98.4 Pulse 84 107 93 Resp 18 18 20 B/P (MAP) 150/85 146/77 Pulse Ox 99 97 96 O2 Delivery Room Air Room Air Room Air FiO2 21 21 Intake & Output (last 24hrs) 06/06/25 06/06/25 06/07/25 15:00 23:00 07:00 Intake Total 933.3 ml 300 ml 1350.0 ml Output Total 600 ml 200 ml 1700 ml Balance 333.3 ml 100 ml -350.0 ml LABS: Laboratory: Test 06/07/25 18:57 06/07/25 04:23 06/06/25 07:22 Range/Units Whole Blood Glucose 130 H 70-110 MG/DL White Blood Count 9.2 4.8-10.8 K/uL Red Blood Count 3.36 L 4.00-5.50 MIL/uL Hemoglobin 9.1 L 12.0-16.0 g/dL Hematocrit 29.2 L 36-48 % Mean Corpuscular Volume 86.9 79-99 fL Mean Corpuscular Hemoglobin 27.1 27.0-33.0 pg Mean Corpuscular Hemoglobin Concent 31.2 L 32.0-36.0 g/dL Red Cell Distribution Width 13.8 11.0-15.5 % Platelet Count 307 130-400 K/uL Mean Platelet Volume 10.6 H 7.5-10.5 fL Immature Granulocyte % (Auto) 0.9 0-1 % Neutrophils (%) (Auto) 66.4 40.0-77.0 % Lymphocytes (%) (Auto) 20.8 L 21.0-51.0 % Monocytes (%) (Auto) 8.7 3.0-13.0 % Eosinophils (%) (Auto) 2.2 0.0-8.0 % Basophils (%) (Auto) 1.0 0.0-5.0 % Neutrophils # (Auto) 6.1 1.8-7.7 K/uL Lymphocytes # (Auto) 1.9 1.0-4.8 K/uL Monocytes # (Auto) 0.8 0.1-1.0 K/uL Eosinophils # (Auto) 0.20 0.00-0.70 K/uL Basophils # (Auto) 0.09 0.00-0.20 K/uL Absolute Immature Granulocyte (auto 0.08 0-1 K/uL Nucleated Red Blood Cells 0.0 0.0-0.19 % Prothrombin Time 11.1 9.6-11.6 SEC Prothromb Time International Ratio 1.05 0.85-1.15 Activated Partial Thromboplast Time 32.2 26.3-35.5 SEC Sodium Level 139 136-145 mmol/L Potassium Level 3.5 3.5-5.1 mmol/L Chloride Level 107 101-111 mmol/L Carbon Dioxide Level 25 21-32 mmol/L Blood Urea Nitrogen 17 7-18 mg/dL Creatinine 0.7 0.5-1.0 mg/dL Glomerular Filtration Rate Calc 88 >90 mL/min Random Glucose 124 H 70-105 mg/dL Total Calcium 8.0 L 8.5-10.1 mg/dL Total Bilirubin 0.4 0.2-1.0 mg/dL Aspartate Amino Transf (AST/SGOT) 18 10-37 U/L Alanine Aminotransferase (ALT/SGPT) 11 L 12-78 U/L Alkaline Phosphatase 71 50-136 U/L C-Reactive Protein, Quantitative 35.10 H 0.5-3.0 mg/L Total Protein 6.0 6.0-8.3 g/dL Albumin 2.5 L 3.5-5.0 g/dL Magnesium Level 1.90 1.80-2.40 mg/dL Cortisol AM Sample 92.2 H 6.2-19.4 ug/dL ASSESSMENT: Urinary tract infection with ESBL E coli. Infection with multidrug resistant organism. Diabetes mellitus. Physical debility. PLAN: Continue Meropenem. Continue vancomycin per pharmacy protocol. We will follow up on the final blood culture results. Continue physical therapy. Continue GI prophylaxis. This case was reviewed and discussed with my supervising physician Dr. Leblanc and the above assessment and plan was formulated and agreed upon. ATTESTATION BY PHYSICIAN I have seen and examined the patient. I reviewed the documentation, medical decision making, and treatment plan as noted by the mid-level provider above. I agree with the findings and plan of care. LIZZETH LEBLANC MD, MIRTA L [facility] Jun 07, 2025 22:59
[2025-06-08 04:04] VITALS: BP 155/83; PULSE 98; RESP 16; TEMP 98.1
[2025-06-08 05:02] LABS: IMMATURE GRANULOCYTE ABSOLUTE 0.09 K/uL (0-1); NUCLEATED RED BLOOD CELLS 0.0 % (0.0-0.19); PLATELET COUNT (AUTO) 272 K/uL (130-400); RED BLOOD CELL COUNT(AUTO) 3.74 MIL/uL (4.00-5.50); RED CELL DISTRIBUTION WIDTH 14.1 % (11.0-15.5); WHITE BLOOD COUNT (AUTO) 10.7 K/uL (4.8-10.8)
[2025-06-08 05:31] LABS: ASPARTATE AMINOTRANSFERASE 22.0 U/L (10-37); CREATININE 0.5 mg/dL (0.5-1.0); GLOMERULAR FILTR. RATE CALC 96.0 mL/min (>90); GLUCOSE,RANDOM 101.0 mg/dL (70-105); SODIUM SERUM 141.0 mmol/L (136-145); TOTAL PROTEIN, SERUM 6.3 g/dL (6.0-8.3); UREA NITROGEN, BLOOD 14.0 mg/dL (7-18)
[2025-06-08 08:00] VITALS: BP 160/80; PULSE 78; RESP 17; TEMP 98.2; O2SAT 98
[2025-06-08] MEDS: ENOXAPARIN SODIUM 40 MG/0.4 ML SYRINGE SQ SCH (08:21)
[2025-06-08 11:43] VITALS: BP 159/95; PULSE 114; RESP 18; TEMP 98
[2025-06-08] MEDS: LACTULOSE 20 GM/30 ML UDCUP PO PRN (12:04)
--- NOTE | 2025-06-08 14:59 | NUR ---
KIANA BARAHONA'Karly PATIENT TOLERTAED WELL
[2025-06-08 16:00] VITALS: BP 132/78; PULSE 100; RESP 18; TEMP 98.3
--- NOTE | 2025-06-08 17:15 | PN ---
[facility] PROGRESS NOTE Date of Service: Jun 08, 2025 Time of Service: 17:10 SUBJECTIVE: 79-year-old female with past medical history of hypertension, hyperlipidemia, diabetes mellitus type 2, GERD, osteoporosis history of urinary incontinence who presented to the hospital secondary to generalized weakness, malaise. Patient states for the past few days she has noted that she has been feeling very weak at home and has not been able to ambulate much. She denies any fever, chills, chest pain, shortness of breath, cough, abdominal pain, nausea, vomiting. Denied any changes in her urination. Denied any dysuria, hematuria. She feels very weak and is not able to stand up at home. She is able to move her upper and lower extremity without issues. Denied any falls, syncopal episode. Denied any numbness to the, numbness to the upper extremity. She complains of frontal headache which is mild. Patient was Recently seen in [facility] on May 30 and had a UA done which showed ESBL. She was actually discharged on cephalexin. She has not been taking her antibiotics consistently. EMS was called at home today where she was noted to have blood pressure in the 60s. She was thereafter brought to hospital for further evaluation Labs in the ER showed white count of 9.7, hemoglobin was 10.9, platelet count was 338 K, sodium was 134, potassium was 2.9, chloride was 95, bicarb was , creatinine was 1.0, blood glucose was 180 , , LFTs were unremarkable, troponin was negative x1 X-ray showed no acute infiltrates. On presentation to the ED patient's blood pressure was 88/44, temperature was 97.0, heart rate was 1 one two, patient was saturating 98% on room air. When seen at bedside patient's blood pressure was noted to be systolic in the 50s. She was alert oriented x4. She was given1 L NS in the ER and was started on vancomycin and cefepime. 06/06/2025: Patient was seen and evaluated bedside in room 219. She was awake and alert and lying comfortably in bed during the visit. Patient is currently off all vasopressor support and is maintaining her blood pressure independently. Nursing staff report flow significant events overnight. It was also noted that the blood pressure cuff was not properly position during EMS transport and earlier ED evaluation, which may have contributed to an accurate readings at that time. Currently, the patient is maintaining stable blood pressures without pharmacological support. Infectious diseases has been consulted and recommendations were pending. Patient continues on vancomycin and cefepime at this time. She appears clinically stable and appropriate for downgrade in level of care. Current vital signs include a BP of 141/75 and a heart rate of 99. patient is otherwise doing well. 06/07/2025: Patient was seen and evaluated bedside in room 419. She was awake and alert, but oriented only to person. Patient denies any significant complaints today. She reports having home health provider who visits daily. At this time, the patient's baseline mental status is unclear, and efforts will be made to contact family to better assess her baseline cognitive function. Pulmonary and critical care has signed off, as the patient is hemodynamically stable. Infectious disease recommends continuing the current antibiotic regimen pending final blood culture results. Patient continues to improve clinically with down trending CRP. Vitals signs are stable, with blood pressure of 150/85 and heart rate 84. The plan is to continue monitoring, follow Infectious Disease recommendations, and clarify baseline mental status with family. 06/08/2025: The patient was seen and evaluated bedside in room 419. She was awake and resting in bed during the visit. Nursing staff reported no acute events overnight. Patient remains hemodynamically stable, with occasional episodes of tachycardia noted. Infectious disease recommends long-term IV antibiotic therapy for her ESBL urinary tract infection. Case management is actively working on placement at [facility] or [facility] to facilitate outpatient IV antibiotic administration. Patient otherwise continues to do well clinically. REVIEW OF SYSTEMS CONSTITUTIONAL: Denies fevers, chills, or night sweats. No unintentional weight loss reported. Positive for generalized malaise, weakness NEUROLOGICAL: Denies headache, amaurosis fugax, motor weakness, sensory deficit, vertigo/spinning sensation, gait abnormalities, or tremors. ENT: No hearing loss, otalgia, otorrhea, rhinitis, rhinorrhea, hoarseness, or sore throat. CARDIOVASCULAR: Denies any exertional angina, dyspnea on exertion, orthopnea, paroxysmal nocturnal dyspnea, palpitations, life-threatening arrhythmias, claudication. PULMONARY: Denies any shortness of breath, cough, phlegm/sputum, hemoptysis, pleuritic chest pain. GASTROINTESTINAL: Denies any type of dysphagia to either liquids or solids. De nies nausea, vomiting, pyrosis, early satiety, abdominal pain, diarrhea, constipation, or changes in stool consistency or caliber. Denies coffee-ground emesis, hematemesis, hematochezia, or melanotic stools. GENITOURINARY: Denies frequency, urgency, nocturia, hematuria or incontinence (Storage/Irritative symptoms.) Low urinary stream, straining to void, urinary intermittency or hesitancy, splitting of the voiding stream, terminal dribbling. ENDOCRINOLOGIC: Denies polyuria, polydipsia, polyphagia or heat/cold intolerances. HEMATOLOGIC: Denies thrombophilia/previous clots, or coagulopathy/bleeding disorders. ONCOLOGIC: Denies personal history of malignancy. DERMATOLOGIC: Denies rashes or pruritus. PSYCHIATRIC: Denies any suicidal or homicidal ideation. Denies hallucinations. PHYSICAL EXAM GENERAL APPEARANCE: The patient is awake, alert, and oriented, in no acute cardiopulmonary distress. NEUROLOGICAL: Cranial nerves II-XII grossly intact. Motor is 5/5 in bilateral upper and lower extremities proximal to distal. No sensory deficits. HEENT: Face is symmetric. Pupils are equal and reactive. Extraocular movements are intact. NECK: Supple. No JVD. No thyromegaly. No submental, submandibular, pre- /postauricular, occipital or supraclavicular lymphadenopathy. CHEST: Normal chest expansion. No Telemetry. LUNGS: Absence of any rales, rhonchi or any wheezing. CARDIOVASCULAR: Regular. S1 and S2 normal. No appreciable rubs, murmurs or gallops. ABDOMEN: Soft, nontender, and nondistended. There is no rebound, voluntary guarding, or rigidity. : Deferred. No Tubbs. EXTREMITIES: Non-edematous and not cyanotic. No clubbing. Good capillary refill. SKIN: No skin breakdown. Vital Signs (last 8hr) Date Time Temp Pulse Resp B/P (MAP) Pulse Ox O2 Delivery O2 Flow Rate FiO2 06/08/25 16:00 98.2 100 18 132/78 97 Room Air 06/08/25 11:43 98.1 114 18 159/95 96 Room Air LABS: Laboratory: Test 06/08/25 16:03 06/08/25 04:53 06/07/25 04:23 Range/Units Whole Blood Glucose 183 H 70-110 MG/DL Bedside Glucose Comment Notified Nurse White Blood Count 10.7 4.8-10.8 K/uL Red Blood Count 3.74 L 4.00-5.50 MIL/uL Hemoglobin 10.2 L 12.0-16.0 g/dL Hematocrit 32.2 L 36-48 % Mean Corpuscular Volume 86.1 79-99 fL Mean Corpuscular Hemoglobin 27.3 27.0-33.0 pg Mean Corpuscular Hemoglobin Concent 31.7 L 32.0-36.0 g/dL Red Cell Distribution Width 14.1 11.0-15.5 % Platelet Count 272 130-400 K/uL Mean Platelet Volume 11.1 H 7.5-10.5 fL Immature Granulocyte % (Auto) 0.8 0-1 % Neutrophils (%) (Auto) 73.1 40.0-77.0 % Lymphocytes (%) (Auto) 15.9 L 21.0-51.0 % Monocytes (%) (Auto) 7.6 3.0-13.0 % Eosinophils (%) (Auto) 1.3 0.0-8.0 % Basophils (%) (Auto) 1.3 0.0-5.0 % Neutrophils # (Auto) 7.8 H 1.8-7.7 K/uL Lymphocytes # (Auto) 1.7 1.0-4.8 K/uL Monocytes # (Auto) 0.8 0.1-1.0 K/uL Eosinophils # (Auto) 0.14 0.00-0.70 K/uL Basophils # (Auto) 0.14 0.00-0.20 K/uL Absolute Immature Granulocyte (auto 0.09 0-1 K/uL Nucleated Red Blood Cells 0.0 0.0-0.19 % Sodium Level 141 136-145 mmol/L Potassium Level 4.3 3.5-5.1 mmol/L Chloride Level 107 101-111 mmol/L Carbon Dioxide Level 26 21-32 mmol/L Blood Urea Nitrogen 14 7-18 mg/dL Creatinine 0.5 0.5-1.0 mg/dL Glomerular Filtration Rate Calc 96 >90 mL/min Random Glucose 101 70-105 mg/dL Total Calcium 8.4 L 8.5-10.1 mg/dL Total Bilirubin 0.5 0.2-1.0 mg/dL Aspartate Amino Transf (AST/SGOT) 22 10-37 U/L Alanine Aminotransferase (ALT/SGPT) 12 12-78 U/L Alkaline Phosphatase 75 50-136 U/L C-Reactive Protein, Quantitative 26.20 H 0.5-3.0 mg/L Total Protein 6.3 6.0-8.3 g/dL Albumin 2.7 L 3.5-5.0 g/dL Prothrombin Time 11.1 9.6-11.6 SEC Prothromb Time International Ratio 1.05 0.85-1.15 Activated Partial Thromboplast Time 32.2 26.3-35.5 SEC Current Medications Medications (Trade) Dose Ordered Sig/Estela Route PRN Reason Start Time Stop Time Status Last Admin Dose Admin Acetaminophen (TYLenol 500MG TAB) 500 mg Q6H PRN PO MILD PAIN (1-3) 06/05/25 12:00 07/05/25 11:59 Atorvastatin Calcium (LIPItor 40MG) 40 mg HS PO 06/07/25 21:00 07/07/25 20:59 06/07/25 20:44 40 MG Duloxetine HCl (CymbALTA 30 mg CAP) 60 mg HS PO 06/07/25 21:00 07/07/25 20:59 06/07/25 20:44 60 MG Enoxaparin Sodium (Lovenox) 40 mg DAILY SQ 06/08/25 09:00 07/08/25 08:59 06/08/25 08:21 40 MG Famotidine (Pepcid 20mg Vial) 20 mg Q24H IV 06/05/25 21:00 07/05/25 20:59 06/07/25 20:43 20 MG Hydrochlorothiazide (hydroCHLOROthiazide 25MG) 12.5 mg DAILY PO 06/08/25 09:00 07/08/25 08:59 06/08/25 08:19 12.5 MG Hydrocortisone Sodium Succinate (Solu-corTEF 100MG) 50 mg Q8H IV 06/05/25 14:00 06/06/25 12:06 DC 06/06/25 06:38 50 MG Insulin Human Regular (humuLIN R 100 UNIT/ML 3ML) INSULIN SLIDING SCAL... ACHS SQ 06/05/25 16:30 07/05/25 16:29 06/08/25 16:57 2 UNIT Lactulose (Constulose 20gm/ 30ml Udcup) 20 gm BID PRN PO CONSTIPATION 06/08/25 12:00 07/08/25 11:59 06/08/25 12:04 20 GM Magnesium Sulfate 50 ml @ 0 mls/hr PROTOCOL PRN IV hypomagnesemia 06/05/25 12:00 07/05/25 11:59 06/05/25 18:47 25 MLS/HR Meropenem (Merrem 1gm) 1 gm Q12H IVPB 06/05/25 12:00 06/15/25 11:59 06/08/25 12:04 1 GM Metoprolol Succinate (TopROL XL) 25 mg DAILY PO 06/08/25 12:00 07/08/25 11:59 06/08/25 12:08 25 MG Norepinephrine 250 ml @ 27.225 mls/ hr PROTOCOL IV 06/05/25 12:00 06/08/25 08:45 DC 06/05/25 12:48 27.225 MLS/HR Ondansetron HCl (zoFRAN 4MG INJ) 4 mg Q6H PRN IVP NAUSEA/VOMITING 06/05/25 18:00 07/05/25 17:59 Oxybutynin Chloride (oxyBUTYnin chloRIDE) 5 mg BID PO 06/07/25 21:00 07/07/25 20:59 06/08/25 08:19 5 MG Pharmacy Profile Note (Pharmacy Communication) 1 each ONCE MISC 06/05/25 12:00 06/05/25 11:47 DC Phenylephrine HCl 10 mg/Sodium Chloride 250 ml @ 0 mls/hr PROTOCOL PRN IV PROTOCOL 06/05/25 12:30 06/08/25 08:45 DC 06/05/25 16:17 136 MLS/HR Potassium Chloride 100 ml @ 100 mls/hr AD PRN IV POTASSIUM PROTOCOL 06/05/25 12:00 07/05/25 11:59 Potassium Chloride (K-Dur/Klor-Con 20meq) 20 meq AD PRN PO POTASSIUM PROTOCOL 06/05/25 12:00 07/05/25 11:59 06/07/25 20:44 20 MEQ Potassium Chloride (KCl 10% Elixir 20meq/15ml) 20 meq AD PRN PO POTASSIUM PROTOCOL 06/05/25 12:00 07/05/25 11:59 Sertraline HCl (ZOloft 50 mg tab) 100 mg HS PO 06/07/25 21:00 07/07/25 20:59 06/07/25 20:44 100 MG Sodium Chloride 1,000 ml @ 50 mls/hr Q20H IV 06/05/25 12:00 07/05/25 11:59 06/08/25 16:51 50 MLS/HR Vancomycin HCl 250 ml @ 125 mls/hr Q24H IV 06/06/25 18:00 06/07/25 20:57 DC 06/07/25 18:34 125 MLS/HR Vancomycin HCl (Vancomycin Protocol) 1 each AD IV 06/05/25 12:00 06/08/25 05:48 DC Vasopressin 20 units/Sodium Chloride 100 ml @ 0 mls/hr PROTOCOL IV 06/05/25 14:00 06/08/25 08:45 DC 06/05/25 15:21 9 MLS/HR DIAGNOSTICS / RADIOLOGY: [ ] ASSESSMENT: Suspected Septic shock POA Complicated UTI with urine culture growing ESBL E coli from cultures in 05/30 Dehydration Hypokalemia Hypomagnesemia Chronic urinary retention, POA Debility Hypertension Hyperlipidemia Diabetes mellitus type 2 GERD PLAN: ESBL urinary tract infection: * On admission, blood pressure was 88/44, temperature of 97, and tachycardia with a HR of 112. * Records indicate ESBL E coli colonization in the urinary tract sensitive to meropenem, nitrofurantoin, piperacillin/tazobactam, gentamicin, and ceftazidime/avibactam. * Urinalysis during this hospitalization was negative for leukocyte esterase and nitrates. * Discontinue hydrocortisone 50 mg b.i.d. * Vasopressor support: previously on Donald-Synephrine 1.25 And vasopressin 0.03, currently discontinued. * Antibiotics: Receiving meropenem (day 3), and vancomycin (day 3). * Trends: CRP-97.2 >35.1>26.1; Procalcitonin-0.06; WBC-9.7>7.9>9.2>10.2; lactic acid-1.9>1.4. * Infectious disease recommended outpatient IV antibiotic therapy. * Continue to monitor clinical status and laboratory trends. Hypokalemia and hypomagnesemia: * Patient's serum potassium and magnesium on admission was 2.9 and 1.5 respectively. * Patient placed on potassium replacement protocol, received PO potassium chloride 120 mEq in total. * Patient received a total of 2g magnesium as per protocol. * Today's serum potassium is at 4.3, and magnesium at 1.9. * Continue to monitor with serial labs. GI prophylaxis with Pepcid 20 mg b.i.d. DVT prophylaxis with SCDs and Lovenox ATTESTATION BY PHYSICIAN I have seen and examined the patient. I reviewed the documentation, medical decision making, and treatment plan as noted by the resident physician above. I agree with the findings and plan of care. MADI FLOWERS MD, HEMA MD Jun 08, 2025 17:15
[2025-06-08 20:00] VITALS: BP 120/59; PULSE 93; RESP 18; TEMP 98.3; O2SAT 98
--- NOTE | 2025-06-08 21:44 | PN ---
INFECTIOUS DISEASE PROGRESS NOTE Date of Service: Jun 08, 2025 SUBJECTIVE: Patient was seen at bedside in room 419. Patient is resting comfortable. No dyspnea observe. Patient performing very poorly with physical therapy. No fever, temperature is 98.1. Vancomycin has been discontinued patient continues on Meropenem. PHYSICAL EXAM EYES: Anicteric. Pupils equal and reactive. HENT: No oral thrush seen, moist Oral mucosa NECK: Supple, no JVD or thyromegaly. LUNGS: Good air entry. No rales, no rhonchi. CARDIOVASCULAR: S1, S2 regular. No murmur heard. ABDOMEN: Soft, non tender, bowel sounds present. CENTRAL NERVOUS SYSTEM: Awake, alert, oriented x 3. SKIN: No rashes, no swelling. LYMPHATICS: No peripheral lymphadenopathy. MUSCULOSKELETAL: No joint swelling, erythema or tenderness. EXTREMITIES: No cyanosis or clubbing. Generalized weakness. BACK: No deformity, no pressure ulcer. GENITOURINARY: No dysuria or hematuria. Vital Sign (Last 12 Hours) 06/08/25 06/08/25 11:43 16:00 Temp 98.1 98.2 Pulse 114 100 Resp 18 18 B/P (MAP) 159/95 132/78 Pulse Ox 96 97 O2 Delivery Room Air Room Air Intake & Output (last 24hrs) 06/07/25 06/07/25 06/08/25 15:00 23:00 07:00 Intake Total 1200 ml 1250.0 ml Output Total 1050 ml 700 ml Balance 150 ml 550.0 ml LABS: Laboratory: Test 06/08/25 19:37 06/08/25 16:03 06/08/25 04:53 06/07/25 04:23 Range/Units Whole Blood Glucose 239 H 70-110 MG/DL Bedside Glucose Comment Notified Nurse White Blood Count 10.7 4.8-10.8 K/uL Red Blood Count 3.74 L 4.00-5.50 MIL/uL Hemoglobin 10.2 L 12.0-16.0 g/dL Hematocrit 32.2 L 36-48 % Mean Corpuscular Volume 86.1 79-99 fL Mean Corpuscular Hemoglobin 27.3 27.0-33.0 pg Mean Corpuscular Hemoglobin Concent 31.7 L 32.0-36.0 g/dL Red Cell Distribution Width 14.1 11.0-15.5 % Platelet Count 272 130-400 K/uL Mean Platelet Volume 11.1 H 7.5-10.5 fL Immature Granulocyte % (Auto) 0.8 0-1 % Neutrophils (%) (Auto) 73.1 40.0-77.0 % Lymphocytes (%) (Auto) 15.9 L 21.0-51.0 % Monocytes (%) (Auto) 7.6 3.0-13.0 % Eosinophils (%) (Auto) 1.3 0.0-8.0 % Basophils (%) (Auto) 1.3 0.0-5.0 % Neutrophils # (Auto) 7.8 H 1.8-7.7 K/uL Lymphocytes # (Auto) 1.7 1.0-4.8 K/uL Monocytes # (Auto) 0.8 0.1-1.0 K/uL Eosinophils # (Auto) 0.14 0.00-0.70 K/uL Basophils # (Auto) 0.14 0.00-0.20 K/uL Absolute Immature Granulocyte (auto 0.09 0-1 K/uL Nucleated Red Blood Cells 0.0 0.0-0.19 % Sodium Level 141 136-145 mmol/L Potassium Level 4.3 3.5-5.1 mmol/L Chloride Level 107 101-111 mmol/L Carbon Dioxide Level 26 21-32 mmol/L Blood Urea Nitrogen 14 7-18 mg/dL Creatinine 0.5 0.5-1.0 mg/dL Glomerular Filtration Rate Calc 96 >90 mL/min Random Glucose 101 70-105 mg/dL Total Calcium 8.4 L 8.5-10.1 mg/dL Total Bilirubin 0.5 0.2-1.0 mg/dL Aspartate Amino Transf (AST/SGOT) 22 10-37 U/L Alanine Aminotransferase (ALT/SGPT) 12 12-78 U/L Alkaline Phosphatase 75 50-136 U/L C-Reactive Protein, Quantitative 26.20 H 0.5-3.0 mg/L Total Protein 6.3 6.0-8.3 g/dL Albumin 2.7 L 3.5-5.0 g/dL Prothrombin Time 11.1 9.6-11.6 SEC Prothromb Time International Ratio 1.05 0.85-1.15 Activated Partial Thromboplast Time 32.2 26.3-35.5 SEC ASSESSMENT: Urinary tract infection with ESBL E coli. Infection with multidrug resistant organism. Diabetes mellitus. Physical debility. PLAN: Continue Meropenem. Discontinue vancomycin. Continue physical therapy. Continue GI prophylaxis. This case was reviewed and discussed with my supervising physician Dr. Leblanc and the above assessment and plan was formulated and agreed upon. ATTESTATION BY PHYSICIAN I have seen and examined the patient. I reviewed the documentation, medical decision making, and treatment plan as noted by the mid-level provider above. I agree with the findings and plan of care. LIZZETH LEBLANC MD, [facility] Jun 08, 2025 21:44
--- NOTE | 2025-06-08 21:56 | PN ---
[facility] PROGRESS NOTE Date Patient Seen: Jun 08, 2025 Time of Visit: 21:56 Supervising Physician: Dr. Omkar May PROBLEM LIST: Septic shock secondary to suspected acute complicated cystitis ESBL E. Coli (+) Infection multi drug resistant organism Diabetes mellitus type 2 Chronic urinary incontinence Hypertension Hyperlipidemia INTERVAL HISTORY: Patient assessed and examined while resting outside the bed in a chair with family members present, awake alert and oriented and appears in no acute distress. Reviewed and discussed vital signs: Temperature 98.1, pulse 78, blood pressure 160/80, oxygen saturation 98% on room air, FiO2, 21 with 18 respirations. Laboratory results: WBC 10.7, hemoglobin 10.2, hematocrit 32 0.2%, platelets 272, sodium 141, potassium 4.3, BUN 14, creatinine 0.5, GFR 96 and albumin 2.3. Reviewed and discussed with medications being used for the treatment and reviewed patient's home medications. Plan we will continue following recommendations of Infectious Disease specialists, IV hydration, blood in urine cultures were negative after three days, and continue GI and DVT prophylaxis. After discussion with patient and family there were no other questions or concerns. Further orders per course of stay a.m. labs ordered. Recommendations Continue IV fluid hydration Tubbs catheter for urinary incontinence Follow blood cultures Follow urine culture GI and DVT prophylaxis Follow morning labs REVIEW OF SYSTEMS: 12 point ROS reviewed with patient. Pertinent positives mentioned above. Otherwise negative. PHYSICAL EXAM: GENERAL: alert, weak, awake oriented x 3 HEENT: EOMI, Sclera non icteric, moist mucosa NECK: Supple, no JVD, trachea midline LUNGS: Clear breath sounds bilaterally. No wheezes HEART: Regular rate and rhythm. Normal S1 and S2, without murmurs ABD: Abdomen soft, nontender. Bowel sounds present EXT: No clubbing cyanosis or edema NEURO: Alert and oriented to person, follows commands Vital Signs (last 8hr) Date Time Temp Pulse Resp B/P (MAP) Pulse Ox O2 Delivery O2 Flow Rate FiO2 06/08/25 16:00 98.2 100 18 132/78 97 Room Air LABS: Hematology Labs: Test 06/08/25 04:53 Range/Units White Blood Count 10.7 4.8-10.8 K/uL Red Blood Count 3.74 L 4.00-5.50 MIL/uL Hemoglobin 10.2 L 12.0-16.0 g/dL Hematocrit 32.2 L 36-48 % Mean Corpuscular Volume 86.1 79-99 fL Mean Corpuscular Hemoglobin 27.3 27.0-33.0 pg Mean Corpuscular Hemoglobin Concent 31.7 L 32.0-36.0 g/dL Red Cell Distribution Width 14.1 11.0-15.5 % Platelet Count 272 130-400 K/uL Mean Platelet Volume 11.1 H 7.5-10.5 fL Immature Granulocyte % (Auto) 0.8 0-1 % Neutrophils (%) (Auto) 73.1 40.0-77.0 % Lymphocytes (%) (Auto) 15.9 L 21.0-51.0 % Monocytes (%) (Auto) 7.6 3.0-13.0 % Eosinophils (%) (Auto) 1.3 0.0-8.0 % Basophils (%) (Auto) 1.3 0.0-5.0 % Neutrophils # (Auto) 7.8 H 1.8-7.7 K/uL Lymphocytes # (Auto) 1.7 1.0-4.8 K/uL Monocytes # (Auto) 0.8 0.1-1.0 K/uL Eosinophils # (Auto) 0.14 0.00-0.70 K/uL Basophils # (Auto) 0.14 0.00-0.20 K/uL Absolute Immature Granulocyte (auto 0.09 0-1 K/uL Nucleated Red Blood Cells 0.0 0.0-0.19 % Chemistry Labs: Test 06/08/25 19:37 06/08/25 16:03 06/08/25 04:53 Range/Units Whole Blood Glucose 239 H 70-110 MG/DL Bedside Glucose Comment Notified Nurse Sodium Level 141 136-145 mmol/L Potassium Level 4.3 3.5-5.1 mmol/L Chloride Level 107 101-111 mmol/L Carbon Dioxide Level 26 21-32 mmol/L Blood Urea Nitrogen 14 7-18 mg/dL Creatinine 0.5 0.5-1.0 mg/dL Glomerular Filtration Rate Calc 96 >90 mL/min Random Glucose 101 70-105 mg/dL Total Calcium 8.4 L 8.5-10.1 mg/dL Total Bilirubin 0.5 0.2-1.0 mg/dL Aspartate Amino Transf (AST/SGOT) 22 10-37 U/L Alanine Aminotransferase (ALT/SGPT) 12 12-78 U/L Alkaline Phosphatase 75 50-136 U/L C-Reactive Protein, Quantitative 26.20 H 0.5-3.0 mg/L Total Protein 6.3 6.0-8.3 g/dL Albumin 2.7 L 3.5-5.0 g/dL Coagulation Labs: Test 06/07/25 04:23 Range/Units Prothrombin Time 11.1 9.6-11.6 SEC Prothromb Time International Ratio 1.05 0.85-1.15 Activated Partial Thromboplast Time 32.2 26.3-35.5 SEC DIAGNOSTICS / RADIOLOGY RESULTS: [ ] PLAN NEURO: Minimize central acting medications as possible. Maintain fall precautions, adequate lighting during the day PULMONARY: Supplemental 02 as needed. Maintain aspiration precautions at all times CARDIOVASCULAR: Follow hemodynamics. Vital signs per facility protocol GI & NUTRITION: Continue with nutritional support. Continue stool softeners and laxatives as needed. KIDNEYS & ELECTROLYTES: Strict monitoring of intake, output and overall fluid balance. Avoid nephrotoxic medications to the extent possible. Medications to be dosed according to renal function. Monitor electrolytes and replace as needed ENDOCRINE: Maintain blood glucose between 100-180 at all times. Hypoglycemia protocol in place INFECTIOUS DISEASE: Trend temperature, WBC and procalcitonin level Follow cultures, deescalate antibiotics as soon as possible. Panculture if new onset fever ONCOLOGY/HEMATOLOGY/COAGULATION: Monitor for s/s of bleeding Monitor hemoglobin, coagulation studies as needed SKIN: Pressure ulcer prevention per facility protocol Specialty mattress ORTHO/REHAB: Continue PT/OT Prophylaxis: Continue GI and DVT prophylaxis Code Status: Full Resuscitation Disposition: TBD Other: Total patient care time exceeds 35 minutes excluding all procedures. [facility] Jun 08, 2025 21:56
[2025-06-09] VITALS (8 sets, daily range): BP systolic 110–142; BP diastolic 58–76; PULSE 65–98; RESP 16–20; TEMP 97.9–99.2; O2SAT 95–99
[2025-06-09 04:47] LABS: IMMATURE GRANULOCYTE ABSOLUTE 0.16 K/uL (0-1); NUCLEATED RED BLOOD CELLS 0.0 % (0.0-0.19); PLATELET COUNT (AUTO) 326 K/uL (130-400); RED BLOOD CELL COUNT(AUTO) 3.75 MIL/uL (4.00-5.50); RED CELL DISTRIBUTION WIDTH 14.0 % (11.0-15.5); WHITE BLOOD COUNT (AUTO) 10.1 K/uL (4.8-10.8)
[2025-06-09 05:14] LABS: ASPARTATE AMINOTRANSFERASE 22.0 U/L (10-37); CREATININE 0.6 mg/dL (0.5-1.0); GLOMERULAR FILTR. RATE CALC 92.0 mL/min (>90); GLUCOSE,RANDOM 122.0 mg/dL (70-105); SODIUM SERUM 136.0 mmol/L (136-145); TOTAL PROTEIN, SERUM 6.3 g/dL (6.0-8.3); UREA NITROGEN, BLOOD 15.0 mg/dL (7-18)
[2025-06-09] MEDS: PoTASSium chl 10% ELIXIR 20MEQ 20 MEQ/15 ML UDCUP PO PRN (09:04)
[2025-06-09] MEDS ORDERED: MAGNESIUM 2GM PREMIX 50ML 50 ML IV SCH (11:00)
--- NOTE | 2025-06-09 13:00 | NUR ---
DCP UPDATE Met w pt this afternoon to discuss Md recommendations for IV ABX @ DC. Discussed options avail to pt. Per PT notes pt has only been sitting @ EOB. LETY/PC obtained for WOH. No family at the bedside. Attempted to call pt's son Jeramy to provide update. No answer, unable to leave VM.
--- NOTE | 2025-06-09 13:14 | PN ---
[facility] PROGRESS NOTE Date of Service: Jun 09, 2025 Time of Service: 13:07 SUBJECTIVE: 79-year-old female with past medical history of hypertension, hyperlipidemia, diabetes mellitus type 2, GERD, osteoporosis history of urinary incontinence who presented to the hospital secondary to generalized weakness, malaise. Patient states for the past few days she has noted that she has been feeling very weak at home and has not been able to ambulate much. She denies any fever, chills, chest pain, shortness of breath, cough, abdominal pain, nausea, vomiting. Denied any changes in her urination. Denied any dysuria, hematuria. She feels very weak and is not able to stand up at home. She is able to move her upper and lower extremity without issues. Denied any falls, syncopal episode. Denied any numbness to the, numbness to the upper extremity. She complains of frontal headache which is mild. Patient was Recently seen in [facility] on [place] 30 and had a UA done which showed ESBL. She was actually discharged on cephalexin. She has not been taking her antibiotics consistently. EMS was called at home today where she was noted to have blood pressure in the 60s. She was thereafter brought to hospital for further evaluation Labs in the ER showed white count of 9.7, hemoglobin was 10.9, platelet count was 338 K, sodium was 134, potassium was 2.9, chloride was 95, bicarb was , creatinine was 1.0, blood glucose was 180 , , LFTs were unremarkable, troponin was negative x1 X-ray showed no acute infiltrates. On presentation to the ED patient's blood pressure was 88/44, temperature was 97.0, heart rate was 1 one two, patient was saturating 98% on room air. When seen at bedside patient's blood pressure was noted to be systolic in the 50s. She was alert oriented x4. She was given1 L NS in the ER and was started on vancomycin and cefepime. 06/06/2025: Patient was seen and evaluated bedside in room 219. She was awake and alert and lying comfortably in bed during the visit. Patient is currently off all vasopressor support and is maintaining her blood pressure independently. Nursing staff report flow significant events overnight. It was also noted that the blood pressure cuff was not properly position during EMS transport and earlier ED evaluation, which may have contributed to an accurate readings at that time. Currently, the patient is maintaining stable blood pressures without pharmacological support. Infectious diseases has been consulted and recommendations were pending. Patient continues on vancomycin and cefepime at this time. She appears clinically stable and appropriate for downgrade in level of care. Current vital signs include a BP of 141/75 and a heart rate of 99. patient is otherwise doing well. 06/07/2025: Patient was seen and evaluated bedside in room 419. She was awake and alert, but oriented only to person. Patient denies any significant complaints today. She reports having home health provider who visits daily. At this time, the patient's baseline mental status is unclear, and efforts will be made to contact family to better assess her baseline cognitive function. Pulmonary and critical care has signed off, as the patient is hemodynamically stable. Infectious disease recommends continuing the current antibiotic regimen pending final blood culture results. Patient continues to improve clinically with down trending CRP. Vitals signs are stable, with blood pressure of 150/85 and heart rate 84. The plan is to continue monitoring, follow Infectious Disease recommendations, and clarify baseline mental status with family. 06/08/2025: The patient was seen and evaluated bedside in room 419. She was awake and resting in bed during the visit. Nursing staff reported no acute events overnight. Patient remains hemodynamically stable, with occasional episodes of tachycardia noted. Infectious disease recommends long-term IV antibiotic therapy for her ESBL urinary tract infection. Case management is actively working on placement at [facility] or residential [facility] to facilitate outpatient IV antibiotic administration. Patient otherwise continues to do well clinically. 06.09.2025: Patient is seen and evaluated in room 419. The patient reports no active complaints, and nursing staff also did not report any complaints overnight. The patient has a urinary tract infection with ESBL-positive cultures from May 30 and will require a total of 10 days of meropenem IV; vancomycin has been discontinued. Case management has been ordered by Infectious Disease to arrange the full course of IV antibiotics. Patients magnesium today is 1.5 mg/dL, for which magnesium 2 g IV was administered. Infectious Disease also recommended that the patient undergo physical therapy for physical rehabilitation and strength. The patient is currently clinically stable and will continue to be monitored for symptoms, vital signs, and laboratory values. REVIEW OF SYSTEMS CONSTITUTIONAL: Denies fevers, chills, or night sweats. No unintentional weight loss reported. Positive for generalized malaise, weakness NEUROLOGICAL: Denies headache, amaurosis fugax, motor weakness, sensory deficit, vertigo/spinning sensation, gait abnormalities, or tremors. ENT: No hearing loss, otalgia, otorrhea, rhinitis, rhinorrhea, hoarseness, or sore throat. CARDIOVASCULAR: Denies any exertional angina, dyspnea on exertion, orthopnea, paroxysmal nocturnal dyspnea, palpitations, life-threatening arrhythmias, claudication. PULMONARY: Denies any shortness of breath, cough, phlegm/sputum, hemoptysis, pleuritic chest pain. GASTROINTESTINAL: Denies any type of dysphagia to either liquids or solids. Denies nausea, vomiting, pyrosis, early satiety, abdominal pain, diarrhea, constipation, or changes in stool consistency or caliber. Denies coffee-ground emesis, hematemesis, hematochezia, or melanotic stools. GENITOURINARY: Denies frequency, urgency, nocturia, hematuria or incontinence (Storage/Irritative symptoms.) Low urinary stream, straining to void, urinary intermittency or hesitancy, splitting of the voiding stream, terminal dribbling. ENDOCRINOLOGIC: Denies polyuria, polydipsia, polyphagia or heat/cold intolerances. HEMATOLOGIC: Denies thrombophilia/previous clots, or coagulopathy/bleeding disorders. DERMATOLOGIC: Denies rashes or pruritus. PSYCHIATRIC: Denies any suicidal or homicidal ideation. Denies hallucinations. PHYSICAL EXAM GENERAL APPEARANCE: The patient is awake, alert, and oriented, in no acute cardiopulmonary distress. NEUROLOGICAL: Motor is 5/5 in bilateral upper and lower extremities proximal to distal. No sensory deficits. HEENT: Face is symmetric. Pupils are equal and reactive. Extraocular movements are intact. NECK: Supple. No thyromegaly. No submental, submandibular, pre-/postauricular, occipital or supraclavicular lymphadenopathy. CHEST: Normal chest expansion. No Telemetry. LUNGS: Absence of any rales, rhonchi or any wheezing. CARDIOVASCULAR: Regular. S1 and S2 normal. No appreciable rubs, murmurs or gallops. ABDOMEN: Soft, nontender, and nondistended. There is no rebound, voluntary guarding, or rigidity. : Deferred. No Tubbs. EXTREMITIES: Non-edematous and not cyanotic. No clubbing. Good capillary refill. SKIN: No skin breakdown. Vital Signs (last 8hr) Date Time Temp Pulse Resp B/P (MAP) Pulse Ox O2 Delivery O2 Flow Rate FiO2 06/09/25 11:50 98.2 90 18 110/58 97 Room Air 06/09/25 08:00 98.4 98 17 142/76 95 Room Air 06/09/25 07:45 95 Room Air* 0 21 LABS: Laboratory: Test 06/09/25 10:48 06/09/25 04:22 06/08/25 16:03 06/08/25 04:53 Range/Units Whole Blood Glucose 178 H 70-110 MG/DL White Blood Count 10.1 4.8-10.8 K/uL Red Blood Count 3.75 L 4.00-5.50 MIL/uL Hemoglobin 10.2 L 12.0-16.0 g/dL Hematocrit 32.5 L 36-48 % Mean Corpuscular Volume 86.7 79-99 fL Mean Corpuscular Hemoglobin 27.2 27.0-33.0 pg Mean Corpuscular Hemoglobin Concent 31.4 L 32.0-36.0 g/dL Red Cell Distribution Width 14.0 11.0-15.5 % Platelet Count 326 130-400 K/uL Mean Platelet Volume 10.4 7.5-10.5 fL Immature Granulocyte % (Auto) 1.6 H 0-1 % Neutrophils (%) (Auto) 66.8 40.0-77.0 % Lymphocytes (%) (Auto) 18.4 L 21.0-51.0 % Monocytes (%) (Auto) 8.6 3.0-13.0 % Eosinophils (%) (Auto) 3.4 0.0-8.0 % Basophils (%) (Auto) 1.2 0.0-5.0 % Neutrophils # (Auto) 6.8 1.8-7.7 K/uL Lymphocytes # (Auto) 1.9 1.0-4.8 K/uL Monocytes # (Auto) 0.9 0.1-1.0 K/uL Eosinophils # (Auto) 0.34 0.00-0.70 K/uL Basophils # (Auto) 0.12 0.00-0.20 K/uL Absolute Immature Granulocyte (auto 0.16 0-1 K/uL Nucleated Red Blood Cells 0.0 0.0-0.19 % Sodium Level 136 136-145 mmol/L Potassium Level 3.7 3.5-5.1 mmol/L Chloride Level 103 101-111 mmol/L Carbon Dioxide Level 24 21-32 mmol/L Blood Urea Nitrogen 15 7-18 mg/dL Creatinine 0.6 0.5-1.0 mg/dL Glomerular Filtration Rate Calc 92 >90 mL/min Random Glucose 122 H 70-105 mg/dL Total Calcium 8.6 8.5-10.1 mg/dL Magnesium Level 1.50 L 1.80-2.40 mg/dL Total Bilirubin 0.4 0.2-1.0 mg/dL Aspartate Amino Transf (AST/SGOT) 22 10-37 U/L Alanine Aminotransferase (ALT/SGPT) 16 # 12-78 U/L Alkaline Phosphatase 82 50-136 U/L Total Protein 6.3 6.0-8.3 g/dL Albumin 2.5 L 3.5-5.0 g/dL Bedside Glucose Comment Notified Nurse C-Reactive Protein, Quantitative 26.20 H 0.5-3.0 mg/L Current Medications Medications (Trade) Dose Ordered Sig/Estela Route PRN Reason Start Time Stop Time Status Last Admin Dose Admin Acetaminophen (TYLenol 500MG TAB) 500 mg Q6H PRN PO MILD PAIN (1-3) 06/05/25 12:00 07/05/25 11:59 Atorvastatin Calcium (LIPItor 40MG) 40 mg HS PO 06/07/25 21:00 07/07/25 20:59 06/08/25 21:50 40 MG Duloxetine HCl (CymbALTA 30 mg CAP) 60 mg HS PO 06/07/25 21:00 07/07/25 20:59 06/08/25 21:51 60 MG Enoxaparin Sodium (Lovenox) 40 mg DAILY SQ 06/08/25 09:00 07/08/25 08:59 06/09/25 09:05 40 MG Famotidine (Pepcid 20mg Vial) 20 mg Q24H IV 06/05/25 21:00 07/05/25 20:59 06/08/25 21:51 20 MG Hydrochlorothiazide (hydroCHLOROthiazide 25MG) 12.5 mg DAILY PO 06/08/25 09:00 07/08/25 08:59 06/09/25 09:06 12.5 MG Hydrocortisone Sodium Succinate (Solu-corTEF 100MG) 50 mg Q8H IV 06/05/25 14:00 06/06/25 12:06 DC 06/06/25 06:38 50 MG Insulin Human Regular (humuLIN R 100 UNIT/ML 3ML) INSULIN SLIDING SCAL... ACHS SQ 06/05/25 16:30 07/05/25 16:29 06/08/25 21:59 4 UNIT Lactulose (Constulose 20gm/ 30ml Udcup) 20 gm BID PRN PO CONSTIPATION 06/08/25 12:00 07/08/25 11:59 06/09/25 05:52 20 GM Magnesium Sulfate 50 ml @ 0 mls/hr PROTOCOL IV 06/09/25 11:00 06/09/25 10:50 DC Magnesium Sulfate 50 ml @ 0 mls/hr PROTOCOL PRN IV hypomagnesemia 06/05/25 12:00 07/05/25 11:59 06/09/25 09:04 50 MLS/HR Meropenem (Merrem 1gm) 1 gm Q12H IVPB 06/05/25 12:00 06/15/25 11:59 06/09/25 12:20 1 GM Metoprolol Succinate (TopROL XL) 25 mg DAILY PO 06/08/25 12:00 07/08/25 11:59 06/09/25 09:05 25 MG Norepinephrine 250 ml @ 27.225 mls/ hr PROTOCOL IV 06/05/25 12:00 06/08/25 08:45 DC 06/05/25 12:48 27.225 MLS/HR Ondansetron HCl (zoFRAN 4MG INJ) 4 mg Q6H PRN IVP NAUSEA/VOMITING 06/05/25 18:00 07/05/25 17:59 Oxybutynin Chloride (oxyBUTYnin chloRIDE) 5 mg BID PO 06/07/25 21:00 07/07/25 20:59 06/09/25 09:06 5 MG Pharmacy Profile Note (Pharmacy Communication) 1 each ONCE MISC 06/05/25 12:00 06/05/25 11:47 DC Phenylephrine HCl 10 mg/Sodium Chloride 250 ml @ 0 mls/hr PROTOCOL PRN IV PROTOCOL 06/05/25 12:30 06/08/25 08:45 DC 06/05/25 16:17 136 MLS/HR Potassium Chloride 100 ml @ 100 mls/hr AD PRN IV POTASSIUM PROTOCOL 06/05/25 12:00 07/05/25 11:59 Potassium Chloride (K-Dur/Klor-Con 20meq) 20 meq AD PRN PO POTASSIUM PROTOCOL 06/05/25 12:00 07/05/25 11:59 06/09/25 05:45 20 MEQ Potassium Chloride (KCl 10% Elixir 20meq/15ml) 20 meq AD PRN PO POTASSIUM PROTOCOL 06/05/25 12:00 07/05/25 11:59 06/09/25 09:04 20 MEQ Sertraline HCl (ZOloft 50 mg tab) 100 mg HS PO 06/07/25 21:00 07/07/25 20:59 06/08/25 21:50 100 MG Sodium Chloride 1,000 ml @ 50 mls/hr Q20H IV 06/05/25 12:00 07/05/25 11:59 06/09/25 12:19 50 MLS/HR Vancomycin HCl 250 ml @ 125 mls/hr Q24H IV 06/06/25 18:00 06/07/25 20:57 DC 06/07/25 18:34 125 MLS/HR Vancomycin HCl (Vancomycin Protocol) 1 each AD IV 06/05/25 12:00 06/08/25 05:48 DC Vasopressin 20 units/Sodium Chloride 100 ml @ 0 mls/hr PROTOCOL IV 06/05/25 14:00 06/08/25 08:45 DC 06/05/25 15:21 9 MLS/HR DIAGNOSTICS / RADIOLOGY: ASSESSMENT: Suspected Septic shock POA Complicated UTI with urine culture growing ESBL E coli from cultures in 05/30 Dehydration Hypokalemia Hypomagnesemia Chronic urinary retention, POA Debility Hypertension Hyperlipidemia Diabetes mellitus type 2 GERD PLAN: ESBL urinary tract infection: * On admission, blood pressure was 88/44, temperature of 97, and tachycardia with a HR of 112. * Records indicate ESBL E coli colonization in the urinary tract sensitive to meropenem, nitrofurantoin, piperacillin/tazobactam, gentamicin, and ceftazidime/avibactam. * Urinalysis during this hospitalization was negative for leukocyte esterase and nitrates. * Discontinue hydrocortisone 50 mg b.i.d. * Vasopressor support: previously on Donald-Synephrine 1.25 And vasopressin 0.03, currently discontinued. * Antibiotics: Receiving meropenem (day 4), and vancomycin (discontinued). * Trends: CRP-97.2 >35.1>26.1; Procalcitonin-0.06; WBC-9.7>7.9>9.2>10.2>10.1; lactic acid-1.9>1.4. * Infectious disease recommended outpatient IV antibiotic therapy. * Continue to monitor clinical status and laboratory trends. * Infectious Disease also recommended that the patient undergo physical therapy for physical rehabilitation and strength. * Case management has been ordered by Infectious Disease to arrange the full course of IV antibiotics. Hypokalemia and hypomagnesemia: * Patient's serum potassium and magnesium on admission was 2.9 and 1.5 respectively. * Patient placed on potassium replacement protocol, received PO potassium chloride 120 mEq in total. * Patient received a total of 2g magnesium as per protocol today. * Today's serum potassium is at 3.7, and magnesium at 1.5. * Continue to monitor with serial labs. GI prophylaxis with Pepcid 20 mg b.i.d. DVT prophylaxis with SCDs and Lovenox ATTESTATION BY PHYSICIAN I have seen and examined the patient. I reviewed the documentation, medical decision making, and treatment plan as noted by the resident provider above. I agree with the findings and plan of care. Leon Dykes IV, MD, LAKSHMI MD Jun 09, 2025 13:14
--- NOTE | 2025-06-09 17:07 | PN ---
INFECTIOUS DISEASE PROGRESS NOTE Date of Service: Jun 09, 2025 SUBJECTIVE: Patient performing very poorly with physical therapy. She will need 5 more days of Meropenem IV for total of 10 days. Case management to arrange. PHYSICAL EXAM EYES: Anicteric. Pupils equal and reactive. HENT: No oral thrush seen, moist Oral mucosa. NECK: Supple, no JVD or thyromegaly. LUNGS: Good air entry. No rales, no rhonchi. CARDIOVASCULAR: S1, S2 regular. No murmur heard. ABDOMEN: Soft, non tender, bowel sounds present. CENTRAL NERVOUS SYSTEM: Awake, alert, oriented x 3. SKIN: No rashes, no swelling. LYMPHATICS: No peripheral lymphadenopathy MUSCULOSKELETAL: No joint swelling, erythema or tenderness. EXTREMITIES: No cyanosis or clubbing BACK: No deformity, no pressure ulcer. Generalized weakness. GENITOURINARY: No dysuria or hematuria Vital Sign (Last 12 Hours) 06/09/25 06/09/25 06/09/25 06/09/25 07:45 08:00 11:50 16:00 Temp 98.4 98.2 97.9 Pulse 98 90 65 Resp 17 18 17 B/P (MAP) 142/76 110/58 128/61 Pulse Ox 95 95 97 96 O2 Delivery Room Air* Room Air Room Air Room Air O2 Flow Rate 0 FiO2 21 Intake & Output (last 24hrs) 06/08/25 06/08/25 06/09/25 15:00 23:00 07:00 Intake Total 64.0 ml Output Total 1800 ml 1100 ml Balance -1800 ml 64.0 ml -1100 ml LABS: Laboratory: Test 06/09/25 15:26 06/09/25 04:22 06/08/25 16:03 06/08/25 04:53 Range/Units Whole Blood Glucose 136 H 70-110 MG/DL White Blood Count 10.1 4.8-10.8 K/uL Red Blood Count 3.75 L 4.00-5.50 MIL/uL Hemoglobin 10.2 L 12.0-16.0 g/dL Hematocrit 32.5 L 36-48 % Mean Corpuscular Volume 86.7 79-99 fL Mean Corpuscular Hemoglobin 27.2 27.0-33.0 pg Mean Corpuscular Hemoglobin Concent 31.4 L 32.0-36.0 g/dL Red Cell Distribution Width 14.0 11.0-15.5 % Platelet Count 326 130-400 K/uL Mean Platelet Volume 10.4 7.5-10.5 fL Immature Granulocyte % (Auto) 1.6 H 0-1 % Neutrophils (%) (Auto) 66.8 40.0-77.0 % Lymphocytes (%) (Auto) 18.4 L 21.0-51.0 % Monocytes (%) (Auto) 8.6 3.0-13.0 % Eosinophils (%) (Auto) 3.4 0.0-8.0 % Basophils (%) (Auto) 1.2 0.0-5.0 % Neutrophils # (Auto) 6.8 1.8-7.7 K/uL Lymphocytes # (Auto) 1.9 1.0-4.8 K/uL Monocytes # (Auto) 0.9 0.1-1.0 K/uL Eosinophils # (Auto) 0.34 0.00-0.70 K/uL Basophils # (Auto) 0.12 0.00-0.20 K/uL Absolute Immature Granulocyte (auto 0.16 0-1 K/uL Nucleated Red Blood Cells 0.0 0.0-0.19 % Sodium Level 136 136-145 mmol/L Potassium Level 3.7 3.5-5.1 mmol/L Chloride Level 103 101-111 mmol/L Carbon Dioxide Level 24 21-32 mmol/L Blood Urea Nitrogen 15 7-18 mg/dL Creatinine 0.6 0.5-1.0 mg/dL Glomerular Filtration Rate Calc 92 >90 mL/min Random Glucose 122 H 70-105 mg/dL Total Calcium 8.6 8.5-10.1 mg/dL Magnesium Level 1.50 L 1.80-2.40 mg/dL Total Bilirubin 0.4 0.2-1.0 mg/dL Aspartate Amino Transf (AST/SGOT) 22 10-37 U/L Alanine Aminotransferase (ALT/SGPT) 16 # 12-78 U/L Alkaline Phosphatase 82 50-136 U/L Total Protein 6.3 6.0-8.3 g/dL Albumin 2.5 L 3.5-5.0 g/dL Bedside Glucose Comment Notified Nurse C-Reactive Protein, Quantitative 26.20 H 0.5-3.0 mg/L ASSESSMENT: Urinary tract infection with ESBL E coli. Infection with multidrug resistant organism. Generalized debility. Diabetes mellitus. PLAN: Continue Meropenem. Continue GI prophylaxis. Continue physical therapy. Patient will need 5 more days of Meropenem This case was reviewed and discussed with my supervising physician Dr. Leblanc and the above assessment and plan was formulated and agreed upon. ATTESTATION BY PHYSICIAN I have seen and examined the patient. I reviewed the documentation, medical decision making, and treatment plan as noted by the mid-level provider above. I agree with the findings and plan of care. LIZZETH LEBLANC MD, [facility] Jun 09, 2025 17:06
--- NOTE | 2025-06-09 19:51 | PN ---
[facility] PROGRESS NOTE Date Patient Seen: Jun 09, 2025 Time of Visit: 19:51 Supervising Physician: Dr. Omkar May PROBLEM LIST: Septic shock secondary to suspected acute complicated cystitis ESBL E. Coli (+) Infection multi drug resistant organism Diabetes mellitus type 2 Chronic urinary incontinence Hypertension Hyperlipidemia INTERVAL HISTORY: Patient was examined and seen my assessment resting in bed with the head friendly and conversant. Patient awake alert oriented vital signs were stable. Patient is afebrile. Reviewed and discussed with family members plan of care, patient to be out of bed 3 times a day during mealtime while out of bed utilize incentive spirometer 6-10 times an hour to expand pulmonary reservoir. Reviewed and discussed laboratory results, diagnostic tests results. Culture results after four days lead culture negative and urine culture final no growth. Continue with Tubbs catheter for chronic urinary incontinence and continue with GI and DVT prophylaxis. Further orders per course of stay. Dispo per primary team. A.m. labs ordered. Recommendations Continue IV fluid hydration Tubbs catheter for urinary incontinence Blood cultures after four days no growth. Urine culture final no growth. GI and DVT prophylaxis Follow morning labs Case management to assist with discharge planning Dispo per primary team. REVIEW OF SYSTEMS: 12 point ROS reviewed with patient. Pertinent positives mentioned above. Otherwise negative. PHYSICAL EXAM: GENERAL: alert, weak, awake oriented x 3 HEENT: EOMI, Sclera non icteric, moist mucosa NECK: Supple, no JVD, trachea midline LUNGS: Clear breath sounds bilaterally. No wheezes HEART: Regular rate and rhythm. Normal S1 and S2, without murmurs ABD: Abdomen soft, nontender. Bowel sounds present EXT: No clubbing cyanosis or edema NEURO: Alert and oriented to person, follows commands Vital Signs (last 8hr) Date Time Temp Pulse Resp B/P (MAP) Pulse Ox O2 Delivery O2 Flow Rate FiO2 06/09/25 16:00 97.9 65 17 128/61 96 Room Air LABS: Hematology Labs: Test 06/09/25 04:22 Range/Units White Blood Count 10.1 4.8-10.8 K/uL Red Blood Count 3.75 L 4.00-5.50 MIL/uL Hemoglobin 10.2 L 12.0-16.0 g/dL Hematocrit 32.5 L 36-48 % Mean Corpuscular Volume 86.7 79-99 fL Mean Corpuscular Hemoglobin 27.2 27.0-33.0 pg Mean Corpuscular Hemoglobin Concent 31.4 L 32.0-36.0 g/dL Red Cell Distribution Width 14.0 11.0-15.5 % Platelet Count 326 130-400 K/uL Mean Platelet Volume 10.4 7.5-10.5 fL Immature Granulocyte % (Auto) 1.6 H 0-1 % Neutrophils (%) (Auto) 66.8 40.0-77.0 % Lymphocytes (%) (Auto) 18.4 L 21.0-51.0 % Monocytes (%) (Auto) 8.6 3.0-13.0 % Eosinophils (%) (Auto) 3.4 0.0-8.0 % Basophils (%) (Auto) 1.2 0.0-5.0 % Neutrophils # (Auto) 6.8 1.8-7.7 K/uL Lymphocytes # (Auto) 1.9 1.0-4.8 K/uL Monocytes # (Auto) 0.9 0.1-1.0 K/uL Eosinophils # (Auto) 0.34 0.00-0.70 K/uL Basophils # (Auto) 0.12 0.00-0.20 K/uL Absolute Immature Granulocyte (auto 0.16 0-1 K/uL Nucleated Red Blood Cells 0.0 0.0-0.19 % Chemistry Labs: Test 06/09/25 15:26 06/09/25 04:22 06/08/25 16:03 06/08/25 04:53 Range/Units Whole Blood Glucose 136 H 70-110 MG/DL Sodium Level 136 136-145 mmol/L Potassium Level 3.7 3.5-5.1 mmol/L Chloride Level 103 101-111 mmol/L Carbon Dioxide Level 24 21-32 mmol/L Blood Urea Nitrogen 15 7-18 mg/dL Creatinine 0.6 0.5-1.0 mg/dL Glomerular Filtration Rate Calc 92 >90 mL/min Random Glucose 122 H 70-105 mg/dL Total Calcium 8.6 8.5-10.1 mg/dL Magnesium Level 1.50 L 1.80-2.40 mg/dL Total Bilirubin 0.4 0.2-1.0 mg/dL Aspartate Amino Transf (AST/SGOT) 22 10-37 U/L Alanine Aminotransferase (ALT/SGPT) 16 # 12-78 U/L Alkaline Phosphatase 82 50-136 U/L Total Protein 6.3 6.0-8.3 g/dL Albumin 2.5 L 3.5-5.0 g/dL Bedside Glucose Comment Notified Nurse C-Reactive Protein, Quantitative 26.20 H 0.5-3.0 mg/L DIAGNOSTICS / RADIOLOGY RESULTS: [ ] PLAN NEURO: Minimize central acting medications as possible. Maintain fall precautions, adequate lighting during the day PULMONARY: Supplemental 02 as needed. Maintain aspiration precautions at all times CARDIOVASCULAR: Follow hemodynamics. Vital signs per facility protocol GI & NUTRITION: Continue with nutritional support. Continue stool softeners and laxatives as needed. KIDNEYS & ELECTROLYTES: Strict monitoring of intake, output and overall fluid balance. Avoid nephrotoxic medications to the extent possible. Medications to be dosed according to renal function. Monitor electrolytes and replace as needed ENDOCRINE: Maintain blood glucose between 100-180 at all times. Hypoglycemia protocol in place INFECTIOUS DISEASE: Trend temperature, WBC and procalcitonin level Follow cultures, deescalate antibiotics as soon as possible. Panculture if new onset fever ONCOLOGY/HEMATOLOGY/COAGULATION: Monitor for s/s of bleeding Monitor hemoglobin, coagulation studies as needed SKIN: Pressure ulcer prevention per facility protocol Specialty mattress ORTHO/REHAB: Continue PT/OT Prophylaxis: Continue GI and DVT prophylaxis Code Status: Full Resuscitation Disposition: TBD Other: Total patient care time exceeds 35 minutes excluding all procedures. AN TAYLOR AGACNP Jun 09, 2025 19:51
[2025-06-10] VITALS (7 sets, daily range): BP systolic 121–136; BP diastolic 62–73; PULSE 68–94; RESP 18; TEMP 98–98.6; O2SAT 97
[2025-06-10 04:58] LABS: IMMATURE GRANULOCYTE ABSOLUTE 0.15 K/uL (0-1); NUCLEATED RED BLOOD CELLS 0.0 % (0.0-0.19); PLATELET COUNT (AUTO) 348 K/uL (130-400); RED BLOOD CELL COUNT(AUTO) 3.82 MIL/uL (4.00-5.50); RED CELL DISTRIBUTION WIDTH 14.0 % (11.0-15.5); WHITE BLOOD COUNT (AUTO) 8.7 K/uL (4.8-10.8)
[2025-06-10 05:27] LABS: CREATININE 0.6 mg/dL (0.5-1.0); GLOMERULAR FILTR. RATE CALC 92.0 mL/min (>90); GLUCOSE,RANDOM 135.0 mg/dL (70-105); SODIUM SERUM 138.0 mmol/L (136-145); UREA NITROGEN, BLOOD 14.0 mg/dL (7-18)
--- NOTE | 2025-06-10 14:22 | PN ---
[facility] PROGRESS NOTE Date Patient Seen: Jun 10, 2025 Time of Visit: 14:22 Supervising Physician: Dr. Omkar May PROBLEM LIST: Septic shock secondary to suspected acute complicated cystitis ESBL E. Coli (+) Infection multi drug resistant organism Diabetes mellitus type 2 Chronic urinary incontinence Hypertension Hyperlipidemia INTERVAL HISTORY: Patient is resting in bed head of the bed elevated friendly and conversant with family members present accompanied by patient's bedside nurse, nursing staff report no adverse events occurring overnight. Vital signs stable. Afebrile. Patient is on room air not requiring supplemental oxygen. Reviewed and discussed with patient's family members medication, laboratory results, vital plan discharge. Manages one to assist discharge planning patient's family agrees the patient increase functional independence prior to being to. Further orders per course of stay this fall for primary team. At this time critical care management is signing off, thank you for the opportunity to participate in the care for this patient, if services are required during this admission please reconsult. Recommendations Continue IV fluid hydration Tubbs catheter for urinary incontinence Blood cultures after four days no growth. Urine culture final no growth. GI and DVT prophylaxis Follow morning labs Case management to assist with discharge planning Dispo per primary team. REVIEW OF SYSTEMS: 12 point ROS reviewed with patient. Pertinent positives mentioned above. Otherwise negative. PHYSICAL EXAM: GENERAL: alert, weak, awake oriented x 3 HEENT: EOMI, Sclera non icteric, moist mucosa NECK: Supple, no JVD, trachea midline LUNGS: Clear breath sounds bilaterally. No wheezes HEART: Regular rate and rhythm. Normal S1 and S2, without murmurs ABD: Abdomen soft, nontender. Bowel sounds present EXT: No clubbing cyanosis or edema NEURO: Alert and oriented to person, follows commands Vital Signs (last 8hr) Date Time Temp Pulse Resp B/P (MAP) Pulse Ox O2 Delivery O2 Flow Rate FiO2 06/10/25 11:18 98.2 94 18 124/65 97 Room Air 06/10/25 08:11 98.4 68 18 136/73 98 Room Air 06/10/25 08:00 97 Room Air* 0 21 LABS: Hematology Labs: Test 06/10/25 04:11 Range/Units White Blood Count 8.7 4.8-10.8 K/uL Red Blood Count 3.82 L 4.00-5.50 MIL/uL Hemoglobin 10.5 L 12.0-16.0 g/dL Hematocrit 33.8 L 36-48 % Mean Corpuscular Volume 88.5 79-99 fL Mean Corpuscular Hemoglobin 27.5 27.0-33.0 pg Mean Corpuscular Hemoglobin Concent 31.1 L 32.0-36.0 g/dL Red Cell Distribution Width 14.0 11.0-15.5 % Platelet Count 348 130-400 K/uL Mean Platelet Volume 10.7 H 7.5-10.5 fL Immature Granulocyte % (Auto) 1.7 H 0-1 % Neutrophils (%) (Auto) 65.1 40.0-77.0 % Lymphocytes (%) (Auto) 20.7 L 21.0-51.0 % Monocytes (%) (Auto) 7.6 3.0-13.0 % Eosinophils (%) (Auto) 3.6 0.0-8.0 % Basophils (%) (Auto) 1.3 0.0-5.0 % Neutrophils # (Auto) 5.6 1.8-7.7 K/uL Lymphocytes # (Auto) 1.8 1.0-4.8 K/uL Monocytes # (Auto) 0.7 0.1-1.0 K/uL Eosinophils # (Auto) 0.31 0.00-0.70 K/uL Basophils # (Auto) 0.11 0.00-0.20 K/uL Absolute Immature Granulocyte (auto 0.15 0-1 K/uL Nucleated Red Blood Cells 0.0 0.0-0.19 % Chemistry Labs: Test 06/10/25 05:38 06/10/25 04:11 06/09/25 04:22 06/08/25 16:03 Range/Units Whole Blood Glucose 137 H 70-110 MG/DL Sodium Level 138 136-145 mmol/L Potassium Level 4.0 3.5-5.1 mmol/L Chloride Level 104 101-111 mmol/L Carbon Dioxide Level 25 21-32 mmol/L Blood Urea Nitrogen 14 7-18 mg/dL Creatinine 0.6 0.5-1.0 mg/dL Glomerular Filtration Rate Calc 92 >90 mL/min Random Glucose 135 H 70-105 mg/dL Total Calcium 8.4 L 8.5-10.1 mg/dL Magnesium Level 1.90 1.80-2.40 mg/dL Total Bilirubin 0.4 0.2-1.0 mg/dL Aspartate Amino Transf (AST/SGOT) 22 10-37 U/L Alanine Aminotransferase (ALT/SGPT) 16 # 12-78 U/L Alkaline Phosphatase 82 50-136 U/L Total Protein 6.3 6.0-8.3 g/dL Albumin 2.5 L 3.5-5.0 g/dL Bedside Glucose Comment Notified Nurse DIAGNOSTICS / RADIOLOGY RESULTS: [ ] PLAN NEURO: Minimize central acting medications as possible. Maintain fall precautions, adequate lighting during the day PULMONARY: Supplemental 02 as needed. Maintain aspiration precautions at all times CARDIOVASCULAR: Follow hemodynamics. Vital signs per facility protocol GI & NUTRITION: Continue with nutritional support. Continue stool softeners and laxatives as needed. KIDNEYS & ELECTROLYTES: Strict monitoring of intake, output and overall fluid balance. Avoid nephrotoxic medications to the extent possible. Medications to be dosed according to renal function. Monitor electrolytes and replace as needed ENDOCRINE: Maintain blood glucose between 100-180 at all times. Hypoglycemia protocol in place INFECTIOUS DISEASE: Trend temperature, WBC and procalcitonin level Follow cultures, deescalate antibiotics as soon as possible. Panculture if new onset fever ONCOLOGY/HEMATOLOGY/COAGULATION: Monitor for s/s of bleeding Monitor hemoglobin, coagulation studies as needed SKIN: Pressure ulcer prevention per facility protocol Specialty mattress ORTHO/REHAB: Continue PT/OT Prophylaxis: Continue GI and DVT prophylaxis Code Status: Full Resuscitation Disposition: TBD Other: Total patient care time exceeds 35 minutes excluding all procedures. AN TAYLOR AGACNP Jun 10, 2025 14:22
--- NOTE | 2025-06-10 16:25 | PN ---
[facility] PROGRESS NOTE Date of Service: Jun 10, 2025 Time of Service: 16:16 SUBJECTIVE: 79-year-old female with past medical history of hypertension, hyperlipidemia, diabetes mellitus type 2, GERD, osteoporosis history of urinary incontinence who presented to the hospital secondary to generalized weakness, malaise. Patient states for the past few days she has noted that she has been feeling very weak at home and has not been able to ambulate much. She denies any fever, chills, chest pain, shortness of breath, cough, abdominal pain, nausea, vomiting. Denied any changes in her urination. Denied any dysuria, hematuria. She feels very weak and is not able to stand up at home. She is able to move her upper and lower extremity without issues. Denied any falls, syncopal episode. Denied any numbness to the, numbness to the upper extremity. She complains of frontal headache which is mild. Patient was Recently seen in [facility] on May 30 and had a UA done which showed ESBL. She was actually discharged on cephalexin. She has not been taking her antibiotics consistently. EMS was called at home today where she was noted to have blood pressure in the 60s. She was thereafter brought to hospital for further evaluation Labs in the ER showed white count of 9.7, hemoglobin was 10.9, platelet count was 338 K, sodium was 134, potassium was 2.9, chloride was 95, bicarb was , creatinine was 1.0, blood glucose was 180 , , LFTs were unremarkable, troponin was negative x1 X-ray showed no acute infiltrates. On presentation to the ED patient's blood pressure was 88/44, temperature was 97.0, heart rate was 1 one two, patient was saturating 98% on room air. When seen at bedside patient's blood pressure was noted to be systolic in the 50s. She was alert oriented x4. She was given1 L NS in the ER and was started on vancomycin and cefepime. 06/06/2025: Patient was seen and evaluated bedside in room 219. She was awake and alert and lying comfortably in bed during the visit. Patient is currently off all vasopressor support and is maintaining her blood pressure independently. Nursing staff report flow significant events overnight. It was also noted that the blood pressure cuff was not properly position during EMS transport and earlier ED evaluation, which may have contributed to an accurate readings at that time. Currently, the patient is maintaining stable blood pressures without pharmacological support. Infectious diseases has been consulted and recommendations were pending. Patient continues on vancomycin and cefepime at this time. She appears clinically stable and appropriate for downgrade in level of care. Current vital signs include a BP of 141/75 and a heart rate of 99. patient is otherwise doing well. 06/07/2025: Patient was seen and evaluated bedside in room 419. She was awake and alert, but oriented only to person. Patient denies any significant complaints today. She reports having home health provider who visits daily. At this time, the patient's baseline mental status is unclear, and efforts will be made to contact family to better assess her baseline cognitive function. Pulmonary and critical care has signed off, as the patient is hemodynamically stable. Infectious disease recommends continuing the current antibiotic regimen pending final blood culture results. Patient continues to improve clinically with down trending CRP. Vitals signs are stable, with blood pressure of 150/85 and heart rate 84. The plan is to continue monitoring, follow Infectious Disease recommendations, and clarify baseline mental status with family. 06/08/2025: The patient was seen and evaluated bedside in room 419. She was awake and resting in bed during the visit. Nursing staff reported no acute events overnight. Patient remains hemodynamically stable, with occasional episodes of tachycardia noted. Infectious disease recommends long-term IV antibiotic therapy for her ESBL urinary tract infection. Case management is actively working on placement at [facility] to facilitate outpatient IV antibiotic administration. Patient otherwise continues to do well clinically. 06.09.2025: Patient is seen and evaluated in room 419. The patient reports no active complaints, and nursing staff also did not report any complaints overnight. The patient has a urinary tract infection with ESBL-positive cultures from May 30 and will require a total of 10 days of meropenem IV; vancomycin has been discontinued. Case management has been ordered by Infectious Disease to arrange the full course of IV antibiotics. Patients magnesium today is 1.5 mg/dL, for which magnesium 2 g IV was administered. Infectious Disease also recommended that the patient undergo physical therapy for physical rehabilitation and strength. The patient is currently clinically stable and will continue to be monitored for symptoms, vital signs, and laboratory values. 06/10/2025: Patient was seen and evaluated in room 419. She denies any acute complaints at this time. She initially reported not having a bowel movement;, however, nursing staff confirmed she had a bowel movement earlier this morning. She denies any abdominal pain, nausea, vomiting, chest pain, or shortness of breath. He is currently on day 6 of meropenem with a planned total of 10 days of IV antibiotics as per ID recommendations. Patient reports feeling stable overall. She remains frail with a decreased mobility and understands that the case management is working on placement for [place] [facility] [place]. She denies any new concerns today and is doing hemodynamically well. REVIEW OF SYSTEMS CONSTITUTIONAL: Denies fevers, chills, or night sweats. No unintentional weight loss reported. Positive for generalized malaise, weakness NEUROLOGICAL: Denies headache, amaurosis fugax, motor weakness, sensory deficit, vertigo/spinning sensation, gait abnormalities, or tremors. ENT: No hearing loss, otalgia, otorrhea, rhinitis, rhinorrhea, hoarseness, or sore throat. CARDIOVASCULAR: Denies any exertional angina, dyspnea on exertion, orthopnea, paroxysmal nocturnal dyspnea, palpitations, life-threatening arrhythmias, claudication. PULMONARY: Denies any shortness of breath, cough, phlegm/sputum, hemoptysis, pleuritic chest pain. GASTROINTESTINAL: Denies any type of dysphagia to either liquids or solids. Denies nausea, vomiting, pyrosis, early satiety, abdominal pain, diarrhea, cons tipation, or changes in stool consistency or caliber. Denies coffee-ground emesis, hematemesis, hematochezia, or melanotic stools. GENITOURINARY: Denies frequency, urgency, nocturia, hematuria or incontinence (Storage/Irritative symptoms.) Low urinary stream, straining to void, urinary intermittency or hesitancy, splitting of the voiding stream, terminal dribbling. ENDOCRINOLOGIC: Denies polyuria, polydipsia, polyphagia or heat/cold intolerances. HEMATOLOGIC: Denies thrombophilia/previous clots, or coagulopathy/bleeding disorders. DERMATOLOGIC: Denies rashes or pruritus. PSYCHIATRIC: Denies any suicidal or homicidal ideation. Denies hallucinations. PHYSICAL EXAM GENERAL APPEARANCE: The patient is awake, alert, and oriented, in no acute cardiopulmonary distress. NEUROLOGICAL: Motor is 5/5 in bilateral upper and lower extremities proximal to distal. No sensory deficits. HEENT: Face is symmetric. Pupils are equal and reactive. Extraocular movements are intact. NECK: Supple. No thyromegaly. No submental, submandibular, pre-/postauricular, occipital or supraclavicular lymphadenopathy. CHEST: Normal chest expansion. No Telemetry. LUNGS: Absence of any rales, rhonchi or any wheezing. CARDIOVASCULAR: Regular. S1 and S2 normal. No appreciable rubs, murmurs or gallops. ABDOMEN: Soft, nontender, and nondistended. There is no rebound, voluntary guarding, or rigidity. : Deferred. No Tubbs. EXTREMITIES: Non-edematous and not cyanotic. No clubbing. Good capillary refill. SKIN: No skin breakdown. Vital Signs (last 8hr) Date Time Temp Pulse Resp B/P (MAP) Pulse Ox O2 Delivery O2 Flow Rate FiO2 06/10/25 11:18 98.2 94 18 124/65 97 Room Air LABS: Laboratory: Test 06/10/25 16:04 06/10/25 04:11 06/09/25 04:22 Range/Units Whole Blood Glucose 164 H 70-110 MG/DL White Blood Count 8.7 4.8-10.8 K/uL Red Blood Count 3.82 L 4.00-5.50 MIL/uL Hemoglobin 10.5 L 12.0-16.0 g/dL Hematocrit 33.8 L 36-48 % Mean Corpuscular Volume 88.5 79-99 fL Mean Corpuscular Hemoglobin 27.5 27.0-33.0 pg Mean Corpuscular Hemoglobin Concent 31.1 L 32.0-36.0 g/dL Red Cell Distribution Width 14.0 11.0-15.5 % Platelet Count 348 130-400 K/uL Mean Platelet Volume 10.7 H 7.5-10.5 fL Immature Granulocyte % (Auto) 1.7 H 0-1 % Neutrophils (%) (Auto) 65.1 40.0-77.0 % Lymphocytes (%) (Auto) 20.7 L 21.0-51.0 % Monocytes (%) (Auto) 7.6 3.0-13.0 % Eosinophils (%) (Auto) 3.6 0.0-8.0 % Basophils (%) (Auto) 1.3 0.0-5.0 % Neutrophils # (Auto) 5.6 1.8-7.7 K/uL Lymphocytes # (Auto) 1.8 1.0-4.8 K/uL Monocytes # (Auto) 0.7 0.1-1.0 K/uL Eosinophils # (Auto) 0.31 0.00-0.70 K/uL Basophils # (Auto) 0.11 0.00-0.20 K/uL Absolute Immature Granulocyte (auto 0.15 0-1 K/uL Nucleated Red Blood Cells 0.0 0.0-0.19 % Sodium Level 138 136-145 mmol/L Potassium Level 4.0 3.5-5.1 mmol/L Chloride Level 104 101-111 mmol/L Carbon Dioxide Level 25 21-32 mmol/L Blood Urea Nitrogen 14 7-18 mg/dL Creatinine 0.6 0.5-1.0 mg/dL Glomerular Filtration Rate Calc 92 >90 mL/min Random Glucose 135 H 70-105 mg/dL Total Calcium 8.4 L 8.5-10.1 mg/dL Magnesium Level 1.90 1.80-2.40 mg/dL Total Bilirubin 0.4 0.2-1.0 mg/dL Aspartate Amino Transf (AST/SGOT) 22 10-37 U/L Alanine Aminotransferase (ALT/SGPT) 16 # 12-78 U/L Alkaline Phosphatase 82 50-136 U/L Total Protein 6.3 6.0-8.3 g/dL Albumin 2.5 L 3.5-5.0 g/dL Current Medications Medications (Trade) Dose Ordered Sig/Estela Route PRN Reason Start Time Stop Time Status Last Admin Dose Admin Acetaminophen (TYLenol 500MG TAB) 500 mg Q6H PRN PO MILD PAIN (1-3) 06/05/25 12:00 07/05/25 11:59 Atorvastatin Calcium (LIPItor 40MG) 40 mg HS PO 06/07/25 21:00 07/07/25 20:59 06/09/25 22:46 40 MG Duloxetine HCl (CymbALTA 30 mg CAP) 60 mg HS PO 06/07/25 21:00 07/07/25 20:59 06/09/25 22:46 60 MG Enoxaparin Sodium (Lovenox) 40 mg DAILY SQ 06/08/25 09:00 07/08/25 08:59 06/10/25 09:01 40 MG Famotidine (Pepcid 20mg Vial) 20 mg Q24H IV 06/05/25 21:00 07/05/25 20:59 06/09/25 22:46 20 MG Hydrochlorothiazide (hydroCHLOROthiazide 25MG) 12.5 mg DAILY PO 06/08/25 09:00 07/08/25 08:59 06/10/25 09:01 12.5 MG Hydrocortisone Sodium Succinate (Solu-corTEF 100MG) 50 mg Q8H IV 06/05/25 14:00 06/06/25 12:06 DC 06/06/25 06:38 50 MG Insulin Human Regular (humuLIN R 100 UNIT/ML 3ML) INSULIN SLIDING SCAL... ACHS SQ 06/05/25 16:30 07/05/25 16:29 06/09/25 13:19 2 UNIT Lactulose (Constulose 20gm/ 30ml Udcup) 20 gm BID PRN PO CONSTIPATION 06/08/25 12:00 07/08/25 11:59 06/09/25 05:52 20 GM Magnesium Sulfate 50 ml @ 0 mls/hr PROTOCOL IV 06/09/25 11:00 06/09/25 10:50 DC Magnesium Sulfate 50 ml @ 0 mls/hr PROTOCOL PRN IV hypomagnesemia 06/05/25 12:00 07/05/25 11:59 06/09/25 09:04 50 MLS/HR Meropenem (Merrem 1gm) 1 gm Q12H IVPB 06/05/25 12:00 06/15/25 11:59 06/10/25 12:26 1 GM Metoprolol Succinate (TopROL XL) 25 mg DAILY PO 06/08/25 12:00 07/08/25 11:59 06/10/25 09:01 25 MG Norepinephrine 250 ml @ 27.225 mls/ hr PROTOCOL IV 06/05/25 12:00 06/08/25 08:45 DC 06/05/25 12:48 27.225 MLS/HR Ondansetron HCl (zoFRAN 4MG INJ) 4 mg Q6H PRN IVP NAUSEA/VOMITING 06/05/25 18:00 07/05/25 17:59 Oxybutynin Chloride (oxyBUTYnin chloRIDE) 5 mg BID PO 06/07/25 21:00 07/07/25 20:59 06/10/25 09:01 5 MG Pharmacy Profile Note (Pharmacy Communication) 1 each ONCE MISC 06/05/25 12:00 06/05/25 11:47 DC Phenylephrine HCl 10 mg/Sodium Chloride 250 ml @ 0 mls/hr PROTOCOL PRN IV PROTOCOL 06/05/25 12:30 06/08/25 08:45 DC 06/05/25 16:17 136 MLS/HR Potassium Chloride 100 ml @ 100 mls/hr AD PRN IV POTASSIUM PROTOCOL 06/05/25 12:00 07/05/25 11:59 Potassium Chloride (K-Dur/Klor-Con 20meq) 20 meq AD PRN PO POTASSIUM PROTOCOL 06/05/25 12:00 07/05/25 11:59 06/09/25 05:45 20 MEQ Potassium Chloride (KCl 10% Elixir 20meq/15ml) 20 meq AD PRN PO POTASSIUM PROTOCOL 06/05/25 12:00 07/05/25 11:59 06/09/25 09:04 20 MEQ Sertraline HCl (ZOloft 50 mg tab) 100 mg HS PO 06/07/25 21:00 07/07/25 20:59 06/09/25 22:46 100 MG Sodium Chloride 1,000 ml @ 50 mls/hr Q20H IV 06/05/25 12:00 07/05/25 11:59 06/10/25 09:02 50 MLS/HR Vancomycin HCl 250 ml @ 125 mls/hr Q24H IV 06/06/25 18:00 06/07/25 20:57 DC 06/07/25 18:34 125 MLS/HR Vancomycin HCl (Vancomycin Protocol) 1 each AD IV 06/05/25 12:00 06/08/25 05:48 DC Vasopressin 20 units/Sodium Chloride 100 ml @ 0 mls/hr PROTOCOL IV 06/05/25 14:00 06/08/25 08:45 DC 06/05/25 15:21 9 MLS/HR DIAGNOSTICS / RADIOLOGY: [ ] ASSESSMENT: Suspected Septic shock POA Complicated UTI with urine culture growing ESBL E coli from cultures in 05/30 Dehydration Hypokalemia Hypomagnesemia Chronic urinary retention, POA Debility Hypertension Hyperlipidemia Diabetes mellitus type 2 GERD PLAN: ESBL urinary tract infection: * On admission, blood pressure was 88/44, temperature of 97, and tachycardia with a HR of 112. * Records indicate ESBL E coli colonization in the urinary tract sensitive to meropenem, nitrofurantoin, piperacillin/tazobactam, gentamicin, and ceftazi dime/avibactam. * Urinalysis during this hospitalization was negative for leukocyte esterase and nitrates. * Discontinue hydrocortisone 50 mg b.i.d. * Vasopressor support: previously on Donald-Synephrine 1.25 And vasopressin 0.03, currently discontinued. * Antibiotics: Receiving meropenem (day 5), and vancomycin (discontinued). * Trends: CRP-97.2 >35.1>26.1; Procalcitonin-0.06; WBC- 9.7>7.9>9.2>10.2>10.1>8.7; lactic acid-1.9>1.4. * Infectious disease recommended outpatient IV antibiotic therapy. * Continue to monitor clinical status and laboratory trends. * Infectious Disease also recommended that the patient undergo physical therapy for physical rehabilitation and strength. * Case management has been ordered by Infectious Disease to arrange the full course of IV antibiotics. Hypokalemia and hypomagnesemia: * Patient's serum potassium and magnesium on admission was 2.9 and 1.5 respectively. * Patient placed on potassium replacement protocol, received PO potassium chloride 160 mEq in total. * Patient received a total of 4g magnesium as per protocol today. * Today's serum potassium is at 4, and magnesium at 1.9. * Continue to monitor with serial labs. GI prophylaxis with Pepcid 20 mg b.i.d. DVT prophylaxis with SCDs and Lovenox ATTESTATION BY PHYSICIAN I have seen and examined the patient. I reviewed the documentation, medical decision making, and treatment plan as noted by the resident physician above. I agree with the findings and plan of care. Leon Dykes MD, HEMA MD Jun 10, 2025 16:25
--- NOTE | 2025-06-10 21:11 | PN ---
INFECTIOUS DISEASE PROGRESS NOTE Date of Service: Jun 10, 2025 SUBJECTIVE: Patient is awake, alert and oriented to person and place. Patient is having lunch. Per report patient is still performing very poorly with physical therapy. Case management to arrange 5 more days of IV antibiotic or patient can continue until completed on 06/15/2025 then discharged. PHYSICAL EXAM EYES: Anicteric. Pupils equal and reactive. HENT: No oral thrush seen, moist Oral mucosa. NECK: Supple, no JVD or thyromegaly. LUNGS: Good air entry. No rales, no rhonchi. CARDIOVASCULAR: S1, S2 regular. No murmur heard. ABDOMEN: Soft, non tender, bowel sounds present. CENTRAL NERVOUS SYSTEM: Awake, alert, oriented. SKIN: No rashes, no swelling. LYMPHATICS: No peripheral lymphadenopathy MUSCULOSKELETAL: No joint swelling, erythema or tenderness. EXTREMITIES: No cyanosis or clubbing BACK: No deformity, no pressure ulcer. Generalized weakness. GENITOURINARY: No dysuria or hematuria Vital Sign (Last 12 Hours) 06/10/25 06/10/25 06/10/25 11:18 16:32 20:00 Temp 98.2 98.6 98.4 Pulse 94 83 78 Resp 18 18 18 B/P (MAP) 124/65 122/69 123/62 Pulse Ox 97 96 95 O2 Delivery Room Air Room Air Room Air Intake & Output (last 24hrs) 06/09/25 06/09/25 06/10/25 15:00 23:00 07:00 Intake Total 100.0 ml 1550.0 ml Output Total 700 ml Balance 100.0 ml 850.0 ml LABS: Laboratory: Test 06/10/25 20:41 06/10/25 04:11 06/09/25 04:22 Range/Units Whole Blood Glucose 234 H 70-110 MG/DL White Blood Count 8.7 4.8-10.8 K/uL Red Blood Count 3.82 L 4.00-5.50 MIL/uL Hemoglobin 10.5 L 12.0-16.0 g/dL Hematocrit 33.8 L 36-48 % Mean Corpuscular Volume 88.5 79-99 fL Mean Corpuscular Hemoglobin 27.5 27.0-33.0 pg Mean Corpuscular Hemoglobin Concent 31.1 L 32.0-36.0 g/dL Red Cell Distribution Width 14.0 11.0-15.5 % Platelet Count 348 130-400 K/uL Mean Platelet Volume 10.7 H 7.5-10.5 fL Immature Granulocyte % (Auto) 1.7 H 0-1 % Neutrophils (%) (Auto) 65.1 40.0-77.0 % Lymphocytes (%) (Auto) 20.7 L 21.0-51.0 % Monocytes (%) (Auto) 7.6 3.0-13.0 % Eosinophils (%) (Auto) 3.6 0.0-8.0 % Basophils (%) (Auto) 1.3 0.0-5.0 % Neutrophils # (Auto) 5.6 1.8-7.7 K/uL Lymphocytes # (Auto) 1.8 1.0-4.8 K/uL Monocytes # (Auto) 0.7 0.1-1.0 K/uL Eosinophils # (Auto) 0.31 0.00-0.70 K/uL Basophils # (Auto) 0.11 0.00-0.20 K/uL Absolute Immature Granulocyte (auto 0.15 0-1 K/uL Nucleated Red Blood Cells 0.0 0.0-0.19 % Sodium Level 138 136-145 mmol/L Potassium Level 4.0 3.5-5.1 mmol/L Chloride Level 104 101-111 mmol/L Carbon Dioxide Level 25 21-32 mmol/L Blood Urea Nitrogen 14 7-18 mg/dL Creatinine 0.6 0.5-1.0 mg/dL Glomerular Filtration Rate Calc 92 >90 mL/min Random Glucose 135 H 70-105 mg/dL Total Calcium 8.4 L 8.5-10.1 mg/dL Magnesium Level 1.90 1.80-2.40 mg/dL Total Bilirubin 0.4 0.2-1.0 mg/dL Aspartate Amino Transf (AST/SGOT) 22 10-37 U/L Alanine Aminotransferase (ALT/SGPT) 16 # 12-78 U/L Alkaline Phosphatase 82 50-136 U/L Total Protein 6.3 6.0-8.3 g/dL Albumin 2.5 L 3.5-5.0 g/dL ASSESSMENT: Urinary tract infection with ESBL E coli. Infection with multidrug resistant organism. Generalized debility. Diabetes mellitus. PLAN: Continue Meropenem. Continue GI prophylaxis. Continue physical therapy. Patient will need 5 more days of Meropenem. This case was reviewed and discussed with my supervising physician Dr. Leblanc and the above assessment and plan was formulated and agreed upon. ATTESTATION BY PHYSICIAN I have seen and examined the patient. I reviewed the documentation, medical decision making, and treatment plan as noted by the mid-level provider above. I agree with the findings and plan of care. LIZZETH LEBLANC MD, MIRTA L [facility] Jun 10, 2025 21:11
[2025-06-11] VITALS: BP 128/74; PULSE 72; RESP 18; TEMP 98
[2025-06-11 04:00] VITALS: BP 133/76; PULSE 78; RESP 18; TEMP 98.3
[2025-06-11 04:33] LABS: IMMATURE GRANULOCYTE ABSOLUTE 0.13 K/uL (0-1); NUCLEATED RED BLOOD CELLS 0.0 % (0.0-0.19); PLATELET COUNT (AUTO) 341 K/uL (130-400); RED BLOOD CELL COUNT(AUTO) 3.59 MIL/uL (4.00-5.50); RED CELL DISTRIBUTION WIDTH 14.0 % (11.0-15.5); WHITE BLOOD COUNT (AUTO) 8.8 K/uL (4.8-10.8)
[2025-06-11 04:44] LABS: CREATININE 0.7 mg/dL (0.5-1.0); GLOMERULAR FILTR. RATE CALC 88.0 mL/min (>90); GLUCOSE,RANDOM 110.0 mg/dL (70-105); SODIUM SERUM 142.0 mmol/L (136-145); UREA NITROGEN, BLOOD 18.0 mg/dL (7-18)
[2025-06-11 08:00] VITALS: O2SAT 97
[2025-06-11 08:02] VITALS: BP 149/98; PULSE 103; RESP 18; TEMP 97.8
[2025-06-11 10:49] LABS: % IRON SATURATION 12.4 % (22-44); IRON, SERUM 33.0 mcg/dL (50-170)
[2025-06-11 11:19] VITALS: BP 114/62; PULSE 83; RESP 18; TEMP 98.3
--- NOTE | 2025-06-11 12:35 | PN ---
[facility] PROGRESS NOTE Date of Service: Jun 11, 2025 Time of Service: 12:35 SUBJECTIVE: 79-year-old female with past medical history of hypertension, hyperlipidemia, diabetes mellitus type 2, GERD, osteoporosis history of urinary incontinence who presented to the hospital secondary to generalized weakness, malaise. Patient states for the past few days she has noted that she has been feeling very weak at home and has not been able to ambulate much. She denies any fever, chills, chest pain, shortness of breath, cough, abdominal pain, nausea, vomiting. Denied any changes in her urination. Denied any dysuria, hematuria. She feels very weak and is not able to stand up at home. She is able to move her upper and lower extremity without issues. Denied any falls, syncopal episode. Denied any numbness to the, numbness to the upper extremity. She complains of frontal headache which is mild. Patient was Recently seen in [facility] ER on May 30 and had a UA done which showed ESBL. She was actually discharged on cephalexin. She has not been taking her antibiotics consistently. EMS was called at home today where she was noted to have blood pressure in the 60s. She was thereafter brought to hospital for further evaluation Labs in the ER showed white count of 9.7, hemoglobin was 10.9, platelet count was 338 K, sodium was 134, potassium was 2.9, chloride was 95, bicarb was , creatinine was 1.0, blood glucose was 180 , , LFTs were unremarkable, troponin was negative x1 X-ray showed no acute infiltrates. On presentation to the ED patient's blood pressure was 88/44, temperature was 97.0, heart rate was 1 one two, patient was saturating 98% on room air. When seen at bedside patient's blood pressure was noted to be systolic in the 50s. She was alert oriented x4. She was given1 L NS in the ER and was started on vancomycin and cefepime. 06/06/2025: Patient was seen and evaluated bedside in room 219. She was awake and alert and lying comfortably in bed during the visit. Patient is currently off all vasopressor support and is maintaining her blood pressure independently. Nursing staff report flow significant events overnight. It was also noted that the blood pressure cuff was not properly position during EMS transport and earlier ED evaluation, which may have contributed to an accurate readings at that time. Currently, the patient is maintaining stable blood pressures without pharmacological support. Infectious diseases has been consulted and recommendations were pending. Patient continues on vancomycin and cefepime at this time. She appears clinically stable and appropriate for downgrade in level of care. Current vital signs include a BP of 141/75 and a heart rate of 99. patient is otherwise doing well. 06/07/2025: Patient was seen and evaluated bedside in room 419. She was awake and alert, but oriented only to person. Patient denies any significant complaints today. She reports having home health provider who visits daily. At this time, the patient's baseline mental status is unclear, and efforts will be made to contact family to better assess her baseline cognitive function. Pulmonary and critical care has signed off, as the patient is hemodynamically stable. Infectious disease recommends continuing the current antibiotic regimen pending final blood culture results. Patient continues to improve clinically with down trending CRP. Vitals signs are stable, with blood pressure of 150/85 and heart rate 84. The plan is to continue monitoring, follow Infectious Disease recommendations, and clarify baseline mental status with family. 06/08/2025: The patient was seen and evaluated bedside in room 419. She was awake and resting in bed during the visit. Nursing staff reported no acute events overnight. Patient remains hemodynamically stable, with occasional episodes of tachycardia noted. Infectious disease recommends long-term IV antibiotic therapy for her ESBL urinary tract infection. Case management is actively working on placement at [facility] or long term [facility] to facilitate outpatient IV antibiotic administration. Patient otherwise continues to do well clinically. 06.09.2025: Patient is seen and evaluated in room 419. The patient reports no active complaints, and nursing staff also did not report any complaints overnight. The patient has a urinary tract infection with ESBL-positive cultures from May 30 and will require a total of 10 days of meropenem IV; vancomycin has been discontinued. Case management has been ordered by Infectious Disease to arrange the full course of IV antibiotics. Patients magnesium today is 1.5 mg/dL, for which magnesium 2 g IV was administered. Infectious Disease also recommended that the patient undergo physical therapy for physical rehabilitation and strength. The patient is currently clinically stable and will continue to be monitored for symptoms, vital signs, and laboratory values. 06/10/2025: Patient was seen and evaluated in room 419. She denies any acute complaints at this time. She initially reported not having a bowel movement;, however, nursing staff confirmed she had a bowel movement earlier this morning. She denies any abdominal pain, nausea, vomiting, chest pain, or shortness of breath. He is currently on day 6 of meropenem with a planned total of 10 days of IV antibiotics as per ID recommendations. Patient reports feeling stable overall. She remains frail with a decreased mobility and understands that the case management is working on placement for [facility]. She denies any new concerns today and is doing hemodynamically well. REVIEW OF SYSTEMS CONSTITUTIONAL: Denies fevers, chills, or night sweats. No unintentional weight loss reported. Positive for generalized malaise, weakness NEUROLOGICAL: Denies headache, amaurosis fugax, motor weakness, sensory deficit, vertigo/spinning sensation, gait abnormalities, or tremors. ENT: No hearing loss, otalgia, otorrhea, rhinitis, rhinorrhea, hoarseness, or sore throat. CARDIOVASCULAR: Denies any exertional angina, dyspnea on exertion, orthopnea, paroxysmal nocturnal dyspnea, palpitations, life-threatening arrhythmias, claudication. PULMONARY: Denies any shortness of breath, cough, phlegm/sputum, hemoptysis, pleuritic chest pain. GASTROINTESTINAL: Denies any type of dysphagia to either liquids or solids. Denies nausea, vomiting, pyrosis, early satiety, abdominal pain, diarrhea, cons tipation, or changes in stool consistency or caliber. Denies coffee-ground emesis, hematemesis, hematochezia, or melanotic stools. GENITOURINARY: Denies frequency, urgency, nocturia, hematuria or incontinence (Storage/Irritative symptoms.) Low urinary stream, straining to void, urinary intermittency or hesitancy, splitting of the voiding stream, terminal dribbling. ENDOCRINOLOGIC: Denies polyuria, polydipsia, polyphagia or heat/cold intolerances. HEMATOLOGIC: Denies thrombophilia/previous clots, or coagulopathy/bleeding disorders. DERMATOLOGIC: Denies rashes or pruritus. PSYCHIATRIC: Denies any suicidal or homicidal ideation. Denies hallucinations. PHYSICAL EXAM GENERAL APPEARANCE: The patient is awake, alert, and oriented, in no acute cardiopulmonary distress. NEUROLOGICAL: Motor is 5/5 in bilateral upper and lower extremities proximal to distal. No sensory deficits. HEENT: Face is symmetric. Pupils are equal and reactive. Extraocular movements are intact. NECK: Supple. No thyromegaly. No submental, submandibular, pre-/postauricular, occipital or supraclavicular lymphadenopathy. CHEST: Normal chest expansion. No Telemetry. LUNGS: Absence of any rales, rhonchi or any wheezing. CARDIOVASCULAR: Regular. S1 and S2 normal. No appreciable rubs, murmurs or gallops. ABDOMEN: Soft, nontender, and nondistended. There is no rebound, voluntary guarding, or rigidity. : Deferred. No Tubbs. EXTREMITIES: Non-edematous and not cyanotic. No clubbing. Good capillary refill. SKIN: No skin breakdown. Vital Signs (last 8hr) Date Time Temp Pulse Resp B/P (MAP) Pulse Ox O2 Delivery O2 Flow Rate FiO2 06/11/25 11:19 98.2 83 18 114/62 98 Room Air 06/11/25 08:02 97.9 103 18 149/98 98 Room Air 06/11/25 08:00 97 Room Air* 0 21 LABS: Laboratory: Test 06/11/25 11:07 06/11/25 09:48 06/11/25 04:22 06/10/25 04:11 Range/Units Whole Blood Glucose 142 H 70-110 MG/DL Iron Level 33 L 50-170 mcg/dL Total Iron Binding Capacity 265 250-450 mcg/dL Percent Iron Saturation 12.4 L 22-44 % Ferritin 51 15-150 ng/mL Vitamin B12 Level 257 193-986 pg/mL White Blood Count 8.8 4.8-10.8 K/uL Red Blood Count 3.59 L 4.00-5.50 MIL/uL Hemoglobin 9.8 L 12.0-16.0 g/dL Hematocrit 32.2 L 36-48 % Mean Corpuscular Volume 89.7 79-99 fL Mean Corpuscular Hemoglobin 27.3 27.0-33.0 pg Mean Corpuscular Hemoglobin Concent 30.4 L 32.0-36.0 g/dL Red Cell Distribution Width 14.0 11.0-15.5 % Platelet Count 341 130-400 K/uL Mean Platelet Volume 10.6 H 7.5-10.5 fL Immature Granulocyte % (Auto) 1.5 H 0-1 % Neutrophils (%) (Auto) 64.2 40.0-77.0 % Lymphocytes (%) (Auto) 19.2 L 21.0-51.0 % Monocytes (%) (Auto) 10.6 3.0-13.0 % Eosinophils (%) (Auto) 3.4 0.0-8.0 % Basophils (%) (Auto) 1.1 0.0-5.0 % Neutrophils # (Auto) 5.6 1.8-7.7 K/uL Lymphocytes # (Auto) 1.7 1.0-4.8 K/uL Monocytes # (Auto) 0.9 0.1-1.0 K/uL Eosinophils # (Auto) 0.30 0.00-0.70 K/uL Basophils # (Auto) 0.10 0.00-0.20 K/uL Absolute Immature Granulocyte (auto 0.13 0-1 K/uL Nucleated Red Blood Cells 0.0 0.0-0.19 % Red Blood Cell Morphology See comments Sodium Level 142 136-145 mmol/L Potassium Level 4.1 3.5-5.1 mmol/L Chloride Level 106 101-111 mmol/L Carbon Dioxide Level 27 21-32 mmol/L Blood Urea Nitrogen 18 7-18 mg/dL Creatinine 0.7 0.5-1.0 mg/dL Glomerular Filtration Rate Calc 88 >90 mL/min Random Glucose 110 H 70-105 mg/dL Total Calcium 8.7 8.5-10.1 mg/dL Magnesium Level 1.90 1.80-2.40 mg/dL Current Medications Medications (Trade) Dose Ordered Sig/Estela Route PRN Reason Start Time Stop Time Status Last Admin Dose Admin Acetaminophen (TYLenol 500MG TAB) 500 mg Q6H PRN PO MILD PAIN (1-3) 06/05/25 12:00 07/05/25 11:59 Atorvastatin Calcium (LIPItor 40MG) 40 mg HS PO 06/07/25 21:00 07/07/25 20:59 06/10/25 20:40 40 MG Duloxetine HCl (CymbALTA 30 mg CAP) 60 mg HS PO 06/07/25 21:00 07/07/25 20:59 06/10/25 20:40 60 MG Enoxaparin Sodium (Lovenox) 40 mg DAILY SQ 06/08/25 09:00 07/08/25 08:59 06/11/25 08:15 40 MG Famotidine (Pepcid 20mg Vial) 20 mg Q24H IV 06/05/25 21:00 07/05/25 20:59 06/10/25 20:40 20 MG Hydrochlorothiazide (hydroCHLOROthiazide 25MG) 12.5 mg DAILY PO 06/08/25 09:00 07/08/25 08:59 06/11/25 08:15 12.5 MG Hydrocortisone Sodium Succinate (Solu-corTEF 100MG) 50 mg Q8H IV 06/05/25 14:00 06/06/25 12:06 DC 06/06/25 06:38 50 MG Insulin Human Regular (humuLIN R 100 UNIT/ML 3ML) INSULIN SLIDING SCAL... ACHS SQ 06/05/25 16:30 07/05/25 16:29 06/10/25 21:43 4 UNIT Lactulose (Constulose 20gm/ 30ml Udcup) 20 gm BID PRN PO CONSTIPATION 06/08/25 12:00 07/08/25 11:59 06/09/25 05:52 20 GM Magnesium Sulfate 50 ml @ 0 mls/hr PROTOCOL IV 06/09/25 11:00 06/09/25 10:50 DC Magnesium Sulfate 50 ml @ 0 mls/hr PROTOCOL PRN IV hypomagnesemia 06/05/25 12:00 07/05/25 11:59 06/09/25 09:04 50 MLS/HR Meropenem (Merrem 1gm) 1 gm Q12H IVPB 06/05/25 12:00 06/15/25 11:59 06/11/25 12:23 1 GM Metoprolol Succinate (TopROL XL) 25 mg DAILY PO 06/08/25 12:00 07/08/25 11:59 06/11/25 08:15 25 MG Norepinephrine 250 ml @ 27.225 mls/ hr PROTOCOL IV 06/05/25 12:00 06/08/25 08:45 DC 06/05/25 12:48 27.225 MLS/HR Ondansetron HCl (zoFRAN 4MG INJ) 4 mg Q6H PRN IVP NAUSEA/VOMITING 06/05/25 18:00 07/05/25 17:59 Oxybutynin Chloride (oxyBUTYnin chloRIDE) 5 mg BID PO 06/07/25 21:00 07/07/25 20:59 06/11/25 08:15 5 MG Pharmacy Profile Note (Pharmacy Communication) 1 each ONCE MISC 06/05/25 12:00 06/05/25 11:47 DC Phenylephrine HCl 10 mg/Sodium Chloride 250 ml @ 0 mls/hr PROTOCOL PRN IV PROTOCOL 06/05/25 12:30 06/08/25 08:45 DC 06/05/25 16:17 136 MLS/HR Potassium Chloride 100 ml @ 100 mls/hr AD PRN IV POTASSIUM PROTOCOL 06/05/25 12:00 07/05/25 11:59 Potassium Chloride (K-Dur/Klor-Con 20meq) 20 meq AD PRN PO POTASSIUM PROTOCOL 06/05/25 12:00 07/05/25 11:59 06/09/25 05:45 20 MEQ Potassium Chloride (KCl 10% Elixir 20meq/15ml) 20 meq AD PRN PO POTASSIUM PROTOCOL 06/05/25 12:00 07/05/25 11:59 06/09/25 09:04 20 MEQ Sertraline HCl (ZOloft 50 mg tab) 100 mg HS PO 06/07/25 21:00 07/07/25 20:59 06/10/25 20:40 100 MG Sodium Chloride 1,000 ml @ 50 mls/hr Q20H IV 06/05/25 12:00 07/05/25 11:59 06/10/25 09:02 50 MLS/HR Vancomycin HCl 250 ml @ 125 mls/hr Q24H IV 06/06/25 18:00 06/07/25 20:57 DC 06/07/25 18:34 125 MLS/HR Vancomycin HCl (Vancomycin Protocol) 1 each AD IV 06/05/25 12:00 06/08/25 05:48 DC Vasopressin 20 units/Sodium Chloride 100 ml @ 0 mls/hr PROTOCOL IV 06/05/25 14:00 06/08/25 08:45 DC 06/05/25 15:21 9 MLS/HR DIAGNOSTICS / RADIOLOGY: [ ] ASSESSMENT: Suspected Septic shock POA Complicated UTI with urine culture growing ESBL E coli from cultures in 05/30 Dehydration Hypokalemia Hypomagnesemia Chronic urinary retention, POA Debility Hypertension Hyperlipidemia Diabetes mellitus type 2 GERD PLAN: ESBL urinary tract infection: * On admission, blood pressure was 88/44, temperature of 97, and tachycardia with a HR of 112. * Records indicate ESBL E coli colonization in the urinary tract sensitive to meropenem, nitrofurantoin, piperacillin/tazobactam, gentamicin, and cef tazidime/avibactam. * Urinalysis during this hospitalization was negative for leukocyte esterase and nitrates. * Discontinue hydrocortisone 50 mg b.i.d. * Vasopressor support: previously on Donald-Synephrine 1.25 And vasopressin 0.03, currently discontinued. * Antibiotics: Receiving meropenem (day 5), and vancomycin (discontinued). * Trends: CRP-97.2 >35.1>26.1; Procalcitonin-0.06; WBC- 9.7>7.9>9.2>10.2>10.1>8.7; lactic acid-1.9>1.4. * Infectious disease recommended outpatient IV antibiotic therapy. * Continue to monitor clinical status and laboratory trends. * Infectious Disease also recommended that the patient undergo physical therapy for physical rehabilitation and strength. * Case management has been ordered by Infectious Disease to arrange the full course of IV antibiotics. Hypokalemia and hypomagnesemia: * Patient's serum potassium and magnesium on admission was 2.9 and 1.5 respectively. * Patient placed on potassium replacement protocol, received PO potassium chloride 160 mEq in total. * Patient received a total of 4g magnesium as per protocol today. * Today's serum potassium is at 4, and magnesium at 1.9. * Continue to monitor with serial labs. GI prophylaxis with Pepcid 20 mg b.i.d. DVT prophylaxis with SCDs and Lovenox DEVAUGHN AGUAYO MD Jun 11, 2025 12:35
[2025-06-11 16:54] VITALS: BP 128/56; PULSE 86; RESP 16; TEMP 98.4
--- NOTE | 2025-06-11 17:39 | DS ---
Discharge Summary Hospital Course Summary: The patient presented with generalized weakness and malaise after several days of poor functional status at home. EMS reported hypotension, with initial ED blood pressure readings as low as 88/44, though later review suggested improper cuff positioning may have contributed to falsely low values. She remained alert and oriented, without infectious symptoms such as fever, dysuria, or respiratory complaints. She had a recent urine culture (05/30/2025) positive for ESBL-producing E. coli and was previously discharged on cephalexin, which she did not take consist ently. Given concern for urosepsis, she was started on broad-spectrum IV antibiotics and received IV fluids. Vasopressor support was briefly initiated but discontinued early as the patient stabilized rapidly. Infectious Disease was consulted and recommended IV meropenem for a total 10-day course due to ESBL infection. Vancomycin was discontinued once cultures and clinical picture supported gram-negative coverage alone. Blood cultures remained negative, inflammatory markers down-trended, and the patient remained afebrile and hemodynamically stable. Her hospital course was complicated by hypokalemia (2.9) and hypomagnesemia (1.5), both of which were corrected with replacement therapy. Renal function remained stable throughout hospitalization. Given her frailty, decreased mobility, and need for completion of IV antibiotics, Infectious Disease and case management recommended detention facility placement for continuation of therapy and physical rehabilitation. The patient remained clinically stable at the time of discharge planning. 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 Infection with multidrug resistant organism. Generalized debility. Diabetes mellitus. PLAN: Continue Meropenem. Continue GI prophylaxis. Continue physical therapy. Patient has been referred to SNF to continue IV antibiotics and rehab, pending insurance approval Procedure(s): [address] [address] IMAGING REPORT Signed PATIENT: YOGI BIRMINGHAM MR#: [id number] : 1945 SEX: F AGE: 79 LOCATION: [facility] ORDER 1018 STATUS: REG ER REPORT#: [id number] SERVICE 1017 REASON: Shortness of breath ORDERING PHYSICIAN: RACHEL VAZQUEZ MD PROCEDURE: CXR1VW - CHEST 1VW EXAM: CR Chest, 1 View. CLINICAL HISTORY: Shortness of breath COMPARISON: None provided. FINDINGS: LUNGS: There is no mass, infiltrate, or acute pulmonary abnormality. PLEURAL SPACES: No pleural effusion or pneumothorax. MEDIASTINUM: The cardiomediastinal silhouette is within normal limits. BONES: No acute osseous abnormality. IMPRESSION: No acute cardiopulmonary pathology is evident. /Bixby DICTATED BY: ADEN BRUNNER DO DATE: 06/05/25 122 ELECTRONICALLY SIGNED BY: ADEN BRUNNER DO DATE: 06/05/25 122 [place] [address] IMAGING REPORT Signed PATIENT: YOGI BIRMINGHAM MR#: [id number] : 1945 SEX: F AGE: 79 LOCATION: ED[facility]IP ORDER 1144 STATUS: ADM IN REPORT#: [id number] SERVICE 1139 REASON: hypotension ORDERING PHYSICIAN: JONEL HASSAN MD PROCEDURE: ECHO FU LD - ECHO 2-D F/U-LTD APPROVED REPORT EXAM: Two-dimensional and M-mode echocardiogram with Doppler and color Doppler. INDICATION ICD: Hypotenstion 2D Dimensions RVDd 3.3 cm LVEF(%) 63.5 (>50%) LVED Vol(simp.) 91.0 mL IVSd 0.8 (0.7-1.1cm) FS(%) 35 % LVES Vol(simp.) 44.0 mL LVDd 5.0 (3.8-5.6cm) LA (2D) 4.0 (1.6-4.0cm) LVEF(%, simp.) 52 % PWd 0.9 (0.7-1.1cm) Ao Root(2D) 2.5 (2.0-3.7cm) LA ESV INDEX (BP) 30.21 mL/m2 LVDs 3.3 (2.5-4.0cm) LVOT diam 2.1 (1.8-2.4cm) Deformation Strain Apical 4 -16.5 % Apical 2 -16.7 % Apical 3 -14.9 % Global Strain -16.1 % Aortic Valve AoV Vmax 1.6 m/s Ao Peak GR 10.1 mmHg LVOT Vmax 0.9 m/s AoV VTI 0.3 m Ao Mean GR 4.6 mmHg LVOT VTI 0.17 m BENJAMIN (VMAX) 1.96 cm2 BENJAMIN (VTI) 2.2 cm2 Mitral Valve MV E Vmax 92.3 cm/s DECEL Time 175 ms MV A Vmax 122.8 cm/s P 1/2 T 54 ms E/A ratio 0.8 MVA (PHT) 4.1 cm2 TDI E/E' Medial 14.3 E/E' Lateral 14.3 Medial E' Peak V 6.47 cm/s Lateral E' Peak V 6.46 cm/s Tricuspid Valve TR Vmax 2.0 m/s RAP (EST) 8 mmHg RVSP 24.0 mmHg TR Peak GR 16.0 mmHg Left Ventricle Left ventricular cavity size is normal. GLS -16.0% Sigmoid septum is present. The LVEF is 50-55%. The LV diastolic function was unable to be assessed due to atrial arrhythmia. Right Ventricle The right ventricle is normal size. The right ventricular systolic function is normal. Atria The left atrium size is normal. Cannot exclude PFO by color Doppler. The right atrium size is normal. Aortic Valve The aortic valve is mildly thickened, trileaflet and opens well. No aortic regurgitation is present. There is no aortic valvular stenosis. Mitral Valve The mitral valve is normal in structure and function. There is moderate mitral valve regurgitation noted. There is no mitral valve stenosis. Tricuspid Valve The tricuspid valve is normal in structure. There is trace of tricuspid valve regurgitation noted. Pulmonic Valve Pulmonic valve is not well visualized. There is no pulmonic valvular regurgitation. Great Vessels The aortic root is normal in size. The IVC is normal in size and collapses >50% with inspiration. Pericardium There is no pericardial effusion. Other Information Quality : Limited/Follow-up Conclusion Technically difficult study. Left ventricular cavity size is normal. Estimated LVEF is 50-55%. The LV diastolic function was unable to be assessed due to atrial arrhythmia. The right ventricular systolic function is normal. Both atria appear normal in size. There is moderate mitral valve regurgitation noted. There is no pericardial effusion. DICTATED BY: AYALA SALAZAR MD DATE: 06/05/25 1200 ELECTRONICALLY SIGNED BY: AYALA SALAZAR MD DATE: 06/05/25 1605 [facility] [address] [place] [id number] IMAGING REPORT Signed PATIENT: YOGI BIRMINGHAM MR#: [id number] : 1945 SEX: F AGE: 79 LOCATION: ED[facility]IP ORDER 1309 STATUS: ADM IN REPORT#: [id number] SERVICE 1308 REASON: rule out dvt ORDERING PHYSICIAN: JONEL HASSAN MD PROCEDURE: VENOUS CHANDRIKA - US VENOUS DOPPLER BILATERAL EXAM: US for Deep Venous Thrombosis, bilateral Lower Extremity. CLINICAL HISTORY: Leg Pain and Swelling TECHNIQUE: Real-time ultrasound scan of the veins of the bilateral lower extremity with color Doppler flow, spectral waveform analysis and compression. COMPARISON: Study dated 04/27. FINDINGS: DEEP VEINS: The common femoral, superficial femoral, and popliteal veins are echolucent and compressible. There is normal color Doppler flow throughout. The visualized calf veins appear patent. SOFT TISSUES: No popliteal fossa cyst or other abnormalities. IMPRESSION: 1. No evidence of deep venous thrombosis in the bilateral lower extremities. /[place]ixby DICTATED BY: AYALA YOUSIF MD DATE: 06/05/251649 ELECTRONICALLY SIGNED BY: AYALA YOUSIF MD DATE: 06/05/251649 Assessment/Plan: ASSESSMENT: Suspected Septic shock POA Complicated UTI with urine culture growing ESBL E coli from cultures in 05/30 Dehydration Hypokalemia Hypomagnesemia Chronic urinary retention, POA Debility Hypertension Hyperlipidemia Diabetes mellitus type 2 GERD Discharge Instructions: Complete the full IV antibiotic course as directed. Participate actively in physical therapy to improve strength and mobility. Monitor for and seek care if experiencing: Fever or chills Worsening weakness Confusion Decreased urine output Maintain adequate hydration and nutrition. Home Medications: Active Scripts Cephalexin (Cephalexin) 500 Mg Tablet, 1 TAB PO BID for 10 Days, #20 TAB 0 Refills Prov:JHONNY ANDRADE CNP 05/30/25 Metoprolol Succinate (Metoprolol Succinate) 25 Mg Tab.er.24h, 1 TAB PO DAILY for 30 Days, #30 TAB 0 Refills Prov:SHALINI QUINTERO MD 05/01/25 Reported Medications Nitrofurantoin Macrocrystal (Nitrofurantoin) 100 Mg Capsule, 1 CAP PO BID for 10 Days, #20 CAP 0 Refills 06/05/25 Pantoprazole Sodium (Pantoprazole Sodium) 40 Mg Granpkt., 40 MG PO DAILY, PACK 06/05/25 Sertraline HCl (Sertraline HCl) 100 Mg Tablet, 1 TAB PO HS for 30 Days, #30 TAB 0 Refills 06/05/25 Oxybutynin Chloride (Oxybutynin Chloride) 5 Mg Tablet, 1 TAB PO BID for urinary discomfort for 30 Days, #60 TAB 0 Refills 04/28/25 Hydrochlorothiazide (Hydrochlorothiazide) 12.5 Mg Tablet, 1 TAB PO DAILY for 30 Days, #30 TAB 0 Refills 04/28/25 Duloxetine HCl (Duloxetine HCl) 60 Mg Capsule., 1 CAP PO HS for 30 Days, #30 CAP 0 Refills 04/28/25 Metformin HCl (Metformin HCl) 1,000 Mg Tablet, 1 TAB PO BID for 30 Days, #60 TAB 0 Refills 04/28/25 Atorvastatin Calcium (Atorvastatin Calcium) 40 Mg Tablet, 1 TAB PO HS for 30 Days, #30 TAB 0 Refills 04/28/25 Discontinued Reported Medications Sertraline HCl (Sertraline HCl) 50 Mg Tablet, 1 TAB PO HS for 30 Days, #30 TAB 0 Refills 04/28/25 Continued Medications: Atorvastatin Calcium (Atorvastatin Calcium) 40 Mg Tablet 1 TAB PO HS for 30 Days, #30 TAB 0 Refills Cephalexin (Cephalexin) 500 Mg Tablet 1 TAB PO BID for 10 Days, #20 TAB 0 Refills Duloxetine HCl (Duloxetine HCl) 60 Mg Capsule. 1 CAP PO HS for 30 Days, #30 CAP 0 Refills Hydrochlorothiazide (Hydrochlorothiazide) 12.5 Mg Tablet 1 TAB PO DAILY for 30 Days, #30 TAB 0 Refills Metformin HCl (Metformin HCl) 1,000 Mg Tablet 1 TAB PO BID for 30 Days, #60 TAB 0 Refills Metoprolol Succinate (Metoprolol Succinate) 25 Mg Tab.er.24h 1 TAB PO DAILY for 30 Days, #30 TAB 0 Refills Nitrofurantoin Macrocrystal (Nitrofurantoin) 100 Mg Capsule 1 CAP PO BID for 10 Days, #20 CAP 0 Refills Oxybutynin Chloride (Oxybutynin Chloride) 5 Mg Tablet 1 TAB PO BID for urinary discomfort for 30 Days, #60 TAB 0 Refills Pantoprazole Sodium (Pantoprazole Sodium) 40 Mg Granpkt.dr 40 MG PO DAILY, PACK Sertraline HCl (Sertraline HCl) 100 Mg Tablet 1 TAB PO HS for 30 Days, #30 TAB 0 Refills Time spent arranging discharge: 1-30 minutes ATTESTATION BY PHYSICIAN I have seen and examined the patient. I reviewed the documentation, medical decision making, and treatment plan as noted by the resident physician above. I agree with the findings and plan of care. MADI FLOWERS MD, HEMA MD Jun 11, 2025 17:39
--- NOTE | 2025-06-11 19:55 | NUR ---
DC PATIENT PICKED UP BY EMS. DC TO [facility]. REPORT AND WOUND PHOTOS DONE BY DAY NURSE LUCIO NÚÑEZ.
[2025-06-11] MEDS ORDERED: BALSAM PERU/CASTOR OIL 60 GM TUBE TP SCH (21:00)
--- NOTE | 2025-06-11 22:07 | PN ---
INFECTIOUS DISEASE PROGRESS NOTE Date of Service: Jun 11, 2025 SUBJECTIVE: Patient is awake, alert and able to answer most questions appropriately. During rounding today patient was pending insurance approval to SNF to continue IV antibiotics until completed on 06/15/2025 and rehab. PHYSICAL EXAM EYES: Anicteric. Pupils equal and reactive. HENT: No oral thrush seen, moist Oral mucosa. NECK: Supple, no JVD or thyromegaly. LUNGS: Good air entry. No rales, no rhonchi. CARDIOVASCULAR: S1, S2 regular. No murmur heard. ABDOMEN: Soft, non tender, bowel sounds present. CENTRAL NERVOUS SYSTEM: Awake, alert, oriented. SKIN: No rashes, no swelling. LYMPHATICS: No peripheral lymphadenopathy MUSCULOSKELETAL: No joint swelling, erythema or tenderness. EXTREMITIES: No cyanosis or clubbing BACK: No deformity, no pressure ulcer. Generalized weakness. GENITOURINARY: No dysuria or hematuria Vital Sign (Last 12 Hours) 06/11/25 06/11/25 11:19 16:54 Temp 98.2 98.4 Pulse 83 86 Resp 18 16 B/P (MAP) 114/62 128/56 Pulse Ox 98 97 O2 Delivery Room Air Room Air Intake & Output (last 24hrs) 06/10/25 06/10/25 06/11/25 15:00 23:00 07:00 Intake Total 670 ml 420 ml Output Total 700 ml Balance 670 ml 420 ml -700 ml LABS: Laboratory: Test 06/11/25 19:22 06/11/25 09:48 06/11/25 04:22 06/10/25 04:11 Range/Units Whole Blood Glucose 143 H 70-110 MG/DL Reticulocyte Count (auto) 2.35944 H 0.42-2.23 % Immature Reticulocyte Fraction 22.50 H 0.18-0.48 % Iron Level 33 L 50-170 mcg/dL Total Iron Binding Capacity 265 250-450 mcg/dL Percent Iron Saturation 12.4 L 22-44 % Ferritin 51 15-150 ng/mL Vitamin B12 Level 257 193-986 pg/mL White Blood Count 8.8 4.8-10.8 K/uL Red Blood Count 3.59 L 4.00-5.50 MIL/uL Hemoglobin 9.8 L 12.0-16.0 g/dL Hematocrit 32.2 L 36-48 % Mean Corpuscular Volume 89.7 79-99 fL Mean Corpuscular Hemoglobin 27.3 27.0-33.0 pg Mean Corpuscular Hemoglobin Concent 30.4 L 32.0-36.0 g/dL Red Cell Distribution Width 14.0 11.0-15.5 % Platelet Count 341 130-400 K/uL Mean Platelet Volume 10.6 H 7.5-10.5 fL Immature Granulocyte % (Auto) 1.5 H 0-1 % Neutrophils (%) (Auto) 64.2 40.0-77.0 % Lymphocytes (%) (Auto) 19.2 L 21.0-51.0 % Monocytes (%) (Auto) 10.6 3.0-13.0 % Eosinophils (%) (Auto) 3.4 0.0-8.0 % Basophils (%) (Auto) 1.1 0.0-5.0 % Neutrophils # (Auto) 5.6 1.8-7.7 K/uL Lymphocytes # (Auto) 1.7 1.0-4.8 K/uL Monocytes # (Auto) 0.9 0.1-1.0 K/uL Eosinophils # (Auto) 0.30 0.00-0.70 K/uL Basophils # (Auto) 0.10 0.00-0.20 K/uL Absolute Immature Granulocyte (auto 0.13 0-1 K/uL Nucleated Red Blood Cells 0.0 0.0-0.19 % Red Blood Cell Morphology See comments Sodium Level 142 136-145 mmol/L Potassium Level 4.1 3.5-5.1 mmol/L Chloride Level 106 101-111 mmol/L Carbon Dioxide Level 27 21-32 mmol/L Blood Urea Nitrogen 18 7-18 mg/dL Creatinine 0.7 0.5-1.0 mg/dL Glomerular Filtration Rate Calc 88 >90 mL/min Random Glucose 110 H 70-105 mg/dL Total Calcium 8.7 8.5-10.1 mg/dL Magnesium Level 1.90 1.80-2.40 mg/dL ASSESSMENT: Urinary tract infection with ESBL E coli. Infection with multidrug resistant organism. Generalized debility. Diabetes mellitus. PLAN: Continue Meropenem. Continue GI prophylaxis. Continue physical therapy. Patient has been referred to SNF to continue IV antibiotics and rehab, pending insurance approval This case was reviewed and discussed with my supervising physician Dr. Leblanc and the above assessment and plan was formulated and agreed upon. ATTESTATION BY PHYSICIAN I have seen and examined the patient. I reviewed the documentation, medical decision making, and treatment plan as noted by the mid-level provider above. I agree with the findings and plan of care. LIZZETH LEBLANC MD, [facility] Jun 11, 2025 22:07
== END 2025-06-11 19:59 | DRG 871 ==
LOC: EDH 10:07 → EDHIP 11:39 → 2CH 17:02 → 4CH 06-06 13:45
PROVIDERS: ADMIT Internal Medicine; ATTEND Internal Medicine
DX: A41.9 Sepsis, unspecified organism (principal); R65.21 Severe sepsis with septic shock; E11.9 Type 2 diabetes mellitus without complications; B96.20 Unspecified Escherichia coli [E. coli] as the cause of diseases classified elsewhere; E86.0 Dehydration; E78.00 Pure hypercholesterolemia, unspecified; I48.91 Unspecified atrial fibrillation; E83.42 Hypomagnesemia; N30.90 Cystitis, unspecified without hematuria; I10 Essential (primary) hypertension; I34.0 Nonrheumatic mitral (valve) insufficiency; Z16.12 Extended spectrum beta lactamase (ESBL) resistance; Z16.24 Resistance to multiple antibiotics; Z96.653 Presence of artificial knee joint, bilateral; E87.6 Hypokalemia; K21.9 Gastro-esophageal reflux disease without esophagitis; M81.0 Age-related osteoporosis without current pathological fracture; I49.3 Ventricular premature depolarization; Z86.73 Personal history of transient ischemic attack (TIA), and cerebral infarction without residual deficits; Z90.49 Acquired absence of other specified parts of digestive tract
CPT/HCPCS: 36415; 36600; 71045; 80048; 80053; 80076; 81001; 82435; 82533; 82607; 82728; 82803; 82947; 82948; 83036; 83605; 83735; 84132; 84145; 84295; 84443; 84484; 85018; 85025; 85027; 85610; 85730; 86140; 87040; 87086; 87635; 87804; 93005; 93308; 93356; 93970; 96365; 99285; G0378; J0692; J1650; J1720; J1815; J2185; J2371; J2405; J3373; J3475; J3490; J7030; J7050; J1308